=== PATIENT | female | born 1940 | race Caucasian/White ===

== ENCOUNTER → 2016-12-25 | Outpatient (REF) | payer MEDICARE | LOC: M LAB REF 13:09 | PROVIDERS: ATTEND Internal Medicine | DX: M05.79 Rheumatoid arthritis with rheumatoid factor of multiple sites without organ or systems involvement (principal) ==

== ENCOUNTER → 2017-02-26 | Outpatient (REF) | payer MEDICARE ==
[2017-03-03 08:19] LABS: TOTAL PROTEIN 7.5 GM/DL (6.4-8.2)
[2017-03-03 09:21] LABS: ALBUMIN 3.86 GM/DL (3.29-5.55); ALBUMIN % 51.4 % (55.8-66.1); GAMMA GLOBULIN % 17.9 % (11.1-18.8)
== END ==
LOC: M LAB REF 12:10
PROVIDERS: ATTEND Internal Medicine
DX: E83.52 Hypercalcemia (principal)

== ENCOUNTER → 2017-06-02 | Outpatient (REF) | payer MEDICARE | LOC: M LAB REF 09:12 | PROVIDERS: ATTEND Internal Medicine | DX: M05.79 Rheumatoid arthritis with rheumatoid factor of multiple sites without organ or systems involvement (principal) ==

== ENCOUNTER → 2017-09-15 | Outpatient (REF) | payer MEDICARE | LOC: M LAB REF 13:22 | PROVIDERS: ATTEND Internal Medicine | DX: Z51.81 Encounter for therapeutic drug level monitoring (principal); Z79.899 Other long term (current) drug therapy ==

== ENCOUNTER 2017-10-08 09:49 | Emergency (ER) | payer MEDICARE | END 2017-10-08 11:38 | disposition home or self-care (01) | LOC: M ED 09:49 | DX: M75.82 Other shoulder lesions, left shoulder (principal); E11.9 Type 2 diabetes mellitus without complications; I10 Essential (primary) hypertension; I25.2 Old myocardial infarction; R56.9 Unspecified convulsions; Z79.01 Long term (current) use of anticoagulants; Z79.82 Long term (current) use of aspirin; Z79.899 Other long term (current) drug therapy; Z88.8 Allergy status to other drugs, medicaments and biological substances; Z86.711 Personal history of pulmonary embolism; Z87.891 Personal history of nicotine dependence | CPT/HCPCS: 73030 ==

== ENCOUNTER → 2017-12-25 | Outpatient (CLI) | payer MEDICARE | LOC: M PLARAD 07:35 | DX: M47.22 Other spondylosis with radiculopathy, cervical region (principal) | CPT/HCPCS: 72141 ==

== ENCOUNTER → 2018-03-29 | Outpatient (REF) | payer MEDICARE ==
[2018-03-29 14:18] LABS: TOTAL PROTEIN,RANDOM URINE 11.8 MG/DL (0.0-12.0)
== END ==
LOC: M LAB REF 11:53
DX: E21.3 Hyperparathyroidism, unspecified (principal)
CPT/HCPCS: 83970

== ENCOUNTER → 2018-06-30 | Outpatient (CLI) | payer MEDICARE | LOC: M RAD 07:03 | DX: M70.61 Trochanteric bursitis, right hip (principal) | CPT/HCPCS: 73721 ==

== ENCOUNTER → 2018-09-21 | Outpatient (REF) | payer MEDICARE ==
[~2018-09-21] MED LIST: ACET30TAB PO; ANOR1AER IN; ASPI1TAB20 PO; ATEN25TA PO; CALCTAB97 PO; CORE25TA PO; ENBR1INJ SC; GLIM2TAB PO; HYDR100T PO; HYDR200T3 PO; ISOS30TA4 PO; K-TA10TA2 PO; LASI40TA PO; LEFL1TAB4 PO; LIPI20TA PO; MULT1TAB10 PO; NITR4TASL SL; OMEP40CA2 PO; PLAV1TAB2 PO; SITA50TAB PO; SPIR-10 PO; TRAM50TA2 PO; TYLE650T35 PO; VENTAER IN; VITA100067 PO; [UNRECOGNIZED DRUG - REMARK]
[2018-09-21 11:21] LABS: CREATININE FOR GFR 1.4 MG/DL (0.55-1.30); GLOMERULAR FILTRATION RATE 38.5 (>32)
== END ==
LOC: M LABDRAW1 10:24
PROVIDERS: ATTEND Physician Assistant
DX: M25.151 Fistula, right hip (principal)

== ENCOUNTER → 2018-12-30 | Outpatient (REF) | payer MEDICARE ==
[~2018-12-30] MED LIST changes: -LASI40TA PO; +LASI40TA9 PO
[2018-12-30 13:37] LABS: PTH INTACT 276.2 PG/ML (18.5-88.0)
[2018-12-31 12:38] LABS: C REACTIVE PROTEIN QUANTITATIV < 0.30 MG/DL (0.00-0.30)
== END ==
LOC: M LAB REF 12:05
PROVIDERS: ATTEND Internal Medicine
DX: E21.3 Hyperparathyroidism, unspecified (principal)

== ENCOUNTER → 2019-02-21 | Outpatient (REF) | payer MEDICARE ==
[~2019-02-21] MED LIST changes: +ACET-716 PO; -ACET30TAB PO
== END ==
LOC: M LAB REF 13:24
PROVIDERS: ATTEND Student in an Organized Health Care Education/Training Program
DX: E21.3 Hyperparathyroidism, unspecified (principal)

== ENCOUNTER → 2019-02-24 | Outpatient (CLI) | payer MEDICARE ==
[2019-02-24 09:49] LABS: CREATININE FOR GFR 1.11 MG/DL (0.55-1.30); GLOMERULAR FILTRATION RATE 50.2 (>32)
== END ==
LOC: M LAB 08:47
PROVIDERS: ATTEND Student in an Organized Health Care Education/Training Program
DX: Z01.818 Encounter for other preprocedural examination (principal)

== ENCOUNTER → 2019-06-17 | Outpatient (REF) | payer MEDICARE ==
[~2019-06-17] MED LIST changes: +ACET-683 PO; -ANOR1AER IN; +ANOR1AER INH; -ASPI1TAB20 PO; +ASPI325T57 PO; +ASPI81TA26 PO; +D31000CA4 PO; +HYDR10TAB PO; +OMEP-218 PO; +POTA20TA6 PO; +TUMS500C PO; +TUMS750C5 PO; -VENTAER IN; +VENTAER INH
== END ==
LOC: M LAB REF 12:25
PROVIDERS: ATTEND Internal Medicine
DX: E21.3 Hyperparathyroidism, unspecified (principal)

== ENCOUNTER 2019-06-24 14:37 | Inpatient (IN) | payer MEDICARE ==
[~2019-06-24] VITALS: Ht 157.5 cm; Wt 64.5 kg
[~2019-06-24 14:37] MED LIST changes: -ACET-683 PO; -ASPI81TA26 PO; -D31000CA4 PO; -HYDR10TAB PO; -OMEP-218 PO; -POTA20TA6 PO; -TUMS500C PO; -TUMS750C5 PO
[2019-06-24] MEDS ORDERED: ACET-683 PO (15:03)
[2019-06-24] MEDS ORDERED: TUMS500C PO (15:14)
[2019-06-24 15:56] LABS: BASO % 0.5 % (0.0-1.0); EOS # 0.1 10^3/uL (0.0-0.5); EOS % 0.8 % (0.0-3.0); HEMOGLOBIN 9.7 g/dl (12.0-15.5); LYMPH # 0.6 10^3/uL (1.5-5.0); LYMPH % 7.3 % (24.0-44.0); MEAN CORPUSCULAR HEMOGLOBIN 28.1 pg (27.0-33.0); MEAN CORPUSCULAR HGB CONC 33.4 g/dl (32.0-36.5); MEAN CORPUSCULAR VOLUME 84.1 fl (80.0-96.0); MONO % 11.7 % (0.0-5.0); NEUTROPHILS # 6.9 10^3/uL (1.5-8.5); NEUTROPHILS % 79.2 % (36.0-66.0); PLATELET COUNT, AUTOMATED 284 10^3/uL (150-450); RED BLOOD COUNT 3.45 10^6/uL (4.00-5.40); WHITE BLOOD COUNT 8.6 10^3/uL (4.0-10.0)
[2019-06-24 16:25] LABS: BLOOD UREA NITROGEN 23 MG/DL (7-18); CALCIUM LEVEL 6.5 MG/DL (8.8-10.2); CARBON DIOXIDE LEVEL 24 MEQ/L (21-32); CHLORIDE LEVEL 102 MEQ/L (98-107); CREATININE FOR GFR 1.36 MG/DL (0.55-1.30); GLOMERULAR FILTRATION RATE 39.7 (>32); GLUCOSE, FASTING 181 MG/DL (70-100); POTASSIUM SERUM 3.9 MEQ/L (3.5-5.1); SODIUM LEVEL 138 MEQ/L (136-145)
[2019-06-24] MEDS ORDERED: ISOVUE-370 76% 100ML VIAL (Q9967) As Ordered ONE (16:57)
[2019-06-24 17:01] LABS: CK-MB VALUE MASS < 1.0 NG/ML (<3.6); CPK CREATINE PHOSPHOKINASE 104 U/L (26-192); FREE T4 2.05 NG/DL (0.76-1.46); MAGNESIUM LEVEL 1.2 MG/DL (1.8-2.4); MB/CK RELATIVE INDEX 0.96 (< OR =4); NT-PRO BNP 3251 PG/ML (<450); PHOSPHORUS LEVEL 3.4 MG/DL (2.5-4.9); THYROID STIMULATING HORMONE 0.017 uIU/ML (0.358-3.740); TROPONIN I 0.05 NG/ML (< 0.10)
[2019-06-24] MEDS ORDERED: MAGNESIUM OXIDE 400 MG TAB (MAG-OX) PO ONE (17:30)
--- NOTE | 2019-06-24 17:50 | REPVR ---
PROCEDURE INFORMATION: Exam: US Duplex Bilateral Lower Extremity Veins Exam date and time: 06/24/2019 5:41 PM Clinical history: 79 years old, female; Abnormal findings; Abnormal lab test; Elevated d-dimer; Additional info: Bilat leg pain R/O dvt TECHNIQUE: Imaging protocol: Real-time duplex ultrasound of the Bilateral Lower Extremities with 2-D merino scale, color Doppler flow and spectral waveform analysis with image documentation. Complete exam focused on the bilateral lower extremity veins. COMPARISON: No relevant prior studies available. FINDINGS: Right deep veins: Unremarkable. The common femoral, femoral, proximal profunda femoral and popliteal veins are patent without thrombus. Normal Doppler waveforms. Normal compressibility and/or augmentation response. Right superficial veins: Saphenofemoral junction is patent without thrombus. Left deep veins: Unremarkable. The common femoral, femoral, proximal profunda femoral and popliteal veins are patent without thrombus. Normal Doppler waveforms. Normal compressibility and/or augmentation response. Left superficial veins: Saphenofemoral junction is patent without thrombus. Soft tissues: Unremarkable. IMPRESSION: No acute findings. No evidence of deep vein thrombosis. Electronically signed by: Shon Castillo On 06/24/2019 17:50:10 PM
[2019-06-24] MEDS ORDERED: CALCIUM GLUCONATE 1,000 MG in D5W MINI-BAG PLUS 100 ML IV ONE (18:00)
--- NOTE | 2019-06-24 18:05 | REPVR ---
PROCEDURE INFORMATION: Exam: CT Angiography Chest With Contrast Exam date and time: 06/24/2019 4:41 PM Clinical history: 79 years old, female; Shortness of breath; Additional info: SOB, fever TECHNIQUE: Imaging protocol: Computed tomographic angiography of the chest with intravenous contrast. 3D rendering: MIP reconstructed images were created and reviewed. Radiation optimization: All CT scans at this facility use at least one of these dose optimization techniques: automated exposure control; mA and/or kV adjustment per patient size (includes targeted exams where dose is matched to clinical indication); or iterative reconstruction. Contrast material: ISOVUE 370; Contrast volume: 75 ml; Contrast route: IV; COMPARISON: No relevant prior studies available. FINDINGS: Pulmonary arteries: There are no pulmonary emboli. Aorta: The aorta demonstrates moderate atherosclerotic calcification. There is no aortic dissection or aneurysm. Lungs: Increased interstitial markings in both upper lobes with subpleural and parenchymal cystic changes consistent with mild emphysematous changes associated with interstitial scarring. Calcified granuloma left upper lobe. Pleural space: Unremarkable. No pneumothorax. No pleural effusion. Heart: Unremarkable. No cardiomegaly. No pericardial effusion. Lymph nodes: Unremarkable. No enlarged lymph nodes. Bones/joints: The spine demonstrates mild degenerative changes. Soft tissues: Unremarkable. IMPRESSION: 1. Increased interstitial markings in both upper lobes with subpleural and parenchymal cystic changes consistent with mild emphysematous changes associated with interstitial scarring. 2. There is no aortic dissection or aneurysm. 3. There are no pulmonary emboli. Electronically signed by: Shon Castillo On 06/24/2019 18:05:12 PM
[2019-06-24] MEDS ORDERED: NS 500 ML IV ONE (19:00)
--- NOTE | 2019-06-24 19:13 | ECGEPIP ---
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
[2019-06-24] MEDS ORDERED: OMEP-218 PO (19:23)
[2019-06-24] MEDS ORDERED: POTA20TA6 PO (19:23)
[2019-06-24] MEDS ORDERED: TUMS750C5 PO (19:23)
[2019-06-24] MEDS ORDERED: ASPI81TA26 PO (19:23)
[2019-06-24] MEDS ORDERED: HYDR10TAB PO (19:23)
[2019-06-24] MEDS ORDERED: D31000CA4 PO (19:23)
[2019-06-24] MEDS ORDERED: ACETAMINOPHEN TAB 650MG DOSE (2X325MG) PO PRN (20:15)
[2019-06-24] MEDS ORDERED: NITROGLYCERIN 0.3 MG SUBL TAB SL PRN (20:15)
[2019-06-24] MEDS ORDERED: IPRATROPIUM 0.5MG/ALBUTEROL 2.5MG INH SOL UD 3ML (DUONEB)(J7620) NEB PRN (20:15)
[2019-06-24] MEDS ORDERED: traMADol 50 MG TAB PO PRN (20:15)
[2019-06-24] MEDS: CALCIUM CARB SUSP 1250MG/5ML UNIT DOSE CUP PO SCH (21:00)
[2019-06-24] MEDS ORDERED: MAALOX 30 ML SUSP *UDC PO PRN (21:00)
[2019-06-24] MEDS ORDERED: CARVedilol 12.5 MG TAB PO ONE (21:00)
[2019-06-24] MEDS: **hydrALAZINE** 10 MG TAB PO SCH (21:00)
[2019-06-24] MEDS: ATORVASTATIN 20 MG TAB PO SCH (21:00)
[2019-06-24] MEDS ORDERED: MOM 30ML SUSPENSION UDC PO PRN (21:00)
--- NOTE | 2019-06-24 21:00 | HPEPDOC ---
General Date of Admission Date of Service: Jun 24, 2019 Chief Complaint The patient is a 79-year-old female admitted with a reason for visit of Abnormal Labs. Source: Patient, Family Exam Limitations: No limitations Timing/Duration: Day(s) Severity: Moderate History of Present Illness Ms. Valverde is an 79 years old woman who had parathyroidectomy on Jun 15. She presents to Er with c/o generalized weakness, nausea, tremors, "feeling jittery and nervous", poor oral intake, and leg cramps for the past few days. She denies fever, chills, chest pain, SOB, diarrhea, constipation or dysuria. In ER, pt had normal mental status. She appeared anxious. Monitor showing sinus tachycardia of 120/min, BP and RR good; afebrile. Labs: Ca 6.5 (Albumin pending, previously normal), Mg 1.2, TSH 0.017, FT4 2.05. Hb 9.7 (no previous value to compare). Pt received a gram of IV calcium and oral magnesium in the ER. Home Medications Scheduled Aspirin (Aspirin EC) 81 Mg Tablet.dr, 81 MG PO DAILY, (Reported) Atorvastatin Calcium (Lipitor) 20 Mg Tab, 20 MG PO QHS, (Reported) Carvedilol (Coreg) 25 Mg Tab, 25 MG PO BID, (Reported) Cholecalciferol (Vitamin D3) (Vitamin D3) 1,000 Unit Capsule, 1,000 UNIT PO DAILY, (Reported) Clopidogrel Bisulfate (Plavix) 75 Mg Tab, 75 MG PO DAILY, (Reported) Etanercept (Enbrel) 25 Mg Inj, 25 MG SC 2XWK, (Reported) DUE FOR SECOND SHOT ON 06/27 Furosemide (Lasix) 40 Mg Tab, 40 MG PO BID, (Reported) Glimepiride (Glimepiride) 2 Mg Tab, 2 MG PO BID, (Reported) Hydralazine HCl (Hydralazine HCl) 10 Mg Tablet, 10 MG PO TID, (Reported) Isosorbide Mononitrate (Isosorbide Mononitrate ER) 30 Mg Tab, 30 MG PO DAILY, (Reported) Leflunomide (Leflunomide) 20 Mg Tab, 20 MG PO Q2D, (Reported) Nitroglycerin (Nitrostat) 0.4 Mg Subl, 0.4 MG SL NITRO, (Reported) Omeprazole (Omeprazole) 20 Mg Capsule.dr, 20 MG PO QHS, (Reported) Potassium Chloride (Potassium Chloride) 20 Meq Tab.er.prt, 20 MEQ PO DAILY, (Reported) Sitagliptin (Januvia) 50 Mg Tab, 50 MG PO DAILY, (Reported) Spironolactone (Spironolactone) 25 Mg Tab, 25 MG PO DAILY, (Reported) Umeclidinium Brm/Vilanterol Tr (Anoro Ellipta 62.5-25 Mcg INH) 1 Aer Aer, 1 PUFF INH DAILY, (Reported) Scheduled PRN Acetaminophen (Acetaminophen) 500 Mg Tablet, 1,000 MG PO Q6H PRN for PAIN, (Reported) Albuterol Sulfate (Ventolin Hfa) 108 Mcg/Act Aer, 1 PUFF INH Q4H PRN for WHEEZING, (Reported) Calcium Carbonate (Tums) 300 Mg Tab.chew, 300 MG PO BID PRN for HEARTBURN, (Reported) Tramadol HCl (Tramadol HCl) 50 Mg Tab, 50 MG PO BID PRN for PAIN, (Reported) Allergies Coded Allergies: No Known Allergies (Unverified , 06/24/19) Past Medical History Medical History CAD, s/p stents, NIDDM, CHF Surgical History Hysterectomy, cholecystectomy, parathyroidectomy Family History Significant Family History: No pertinent family hx Social History * Smoker: Denies Alcohol: Denies Drugs: denies A-FIB/CHADSVASC A-FIB History Current/History of A-Fib/PAF?: No Review of Systems Constitutional: Reports: Weakness, Fatigue, Lethargy; Denies: Chills, Fever Eyes: Denies: Pain, Vision change ENT: Denies: Head Aches, Ear Pain, Dysphagia Skin: Denies: Rash, Lesions Pulmonary: Denies: Dyspnea, Cough, Pleuritic Chest Pain Cardiovascular: Denies: Chest Pain, Edema Gastrointestinal: Reports: Nausea; Denies: Vomiting, Abdominal Pain, Diarrhea, Constipation Genitourinary: Denies: Dysuria, Frequency Hematologic: Denies: Bruising Endocrine: Denies: Polydipsia, Polyphagia Musculoskeletal: Reports: Leg Pain; Denies: Neck Pain, Back Pain Neurological: Reports: Weakness Psych: Reports: Mood Normal, Anxiety Physical Examination General Exam: Positive: Alert, Cooperative, No Acute Distress Eye Exam: Positive: PERRLA, Conjunctiva & lids normal ENT Exam: Positive: Atraumatic, Mucous membr. moist/pink Neck Exam: Positive: Supple; Negative: JVD Chest Exam: Positive: Clear to auscultation, Normal air movement Heart Exam: Positive: Tachycardic, Regular Rhythm Telemetry: Positive: Sinus, Tachycardia Abdomen Exam: Positive: Normal bowel sounds, Soft; Negative: Tenderness Extremity Exam: Positive: Normal pulses; Negative: Edema Skin Exam: Positive: Nl turgor and temperature; Negative: Rash Neuro Exam: Positive: Normal Speech, Strength at 5/5 X4 ext, Normal Tone, Other (tremors) Psych Exam: Positive: Mental status NL, Mood NL, Anxiety Vital Signs Vital Signs Date Time Temp Pulse Resp B/P (MAP) Pulse Ox O2 Delivery O2 Flow Rate FiO2 06/24/19 20:30 125 112/58 (76) 91 Room Air 06/24/19 19:54 98.6 06/24/19 14:38 26 Laboratory Data Labs 24H Laboratory Tests 2 06/24/19 15:34: Immature Granulocyte % (Auto) 0.5, White Blood Count 8.6, Red Blood Count 3.45L, Hemoglobin 9.7L, Hematocrit 29.0L, Mean Corpuscular Volume 84.1, Mean Corpuscular Hemoglobin 28.1, Mean Corpuscular Hemoglobin Concent 33.4, Red Cell Distribution Width 13.8, Platelet Count 284, Neutrophils (%) (Auto) 79.2H, Ly mphocytes (%) (Auto) 7.3L, Monocytes (%) (Auto) 11.7H, Eosinophils (%) (Auto) 0.8, Basophils (%) (Auto) 0.5, Neutrophils # (Auto) 6.9, Lymphocytes # (Auto) 0.6L, Monocytes # (Auto) 1.0H, Eosinophils # (Auto) 0.1, Basophils # (Auto) 0.0, Nucleated Red Blood Cells % (auto) 0.0, Anion Gap 12, Glomerular Filtration Rate 39.7, Blood Urea Nitrogen 23H, Creatinine 1.36H, Sodium Level 138, Potassium Level 3.9, Chloride Level 102, Carbon Dioxide Level 24, Calcium Level 6.5L, Phosphorus Level 3.4, Total Creatine Kinase 104, Magnesium Level 1.2L, Creatine Kinase MB < 1.0, Creatine Kinase MB Relative Index 0.96, Troponin I 0.05, ZF-Dud-U-Type Natriuretic Peptide 3251H, Thyroid Stimulating Hormone (TSH) 0.017L, Free Thyroxine 2.05H 06/24/19 17:14: Urine Color YELLOW, Urine Appearance HAZY, Urine pH 5.0, Urine Specific [place] 1.008, Urine Protein NEGATIVE, Urine Glucose (UA) NEGATIVE, Urine Ketones NEGATIVE, Urine Blood NEGATIVE, Urine Nitrite NEGATIVE, Urine Bilirubin NEGATIVE , Urine Urobilinogen 0.2, Urine Leukocyte Esterase NEGATIVE, Urine WBC (Auto) 1, Urine RBC (Auto) 2, Urine Hyaline Casts (Auto) 0, Urine Bacteria (Auto) NEGATIVE, Urine Squamous Epithelial Cells 1, Urine Mucus (Auto) SMALL, Urine Sperm (Auto) 06/24/19 20:16: CBC/BMP Laboratory Tests 06/24/19 15:34 Red Blood Count 3.45 L, Mean Corpuscular Volume 84.1, Mean Corpuscular Hemoglo bin 28.1, Mean Corpuscular Hemoglobin Concent 33.4, Red Cell Distribution Width 13.8, Neutrophils (%) (Auto) 79.2 H, Lymphocytes (%) (Auto) 7.3 L, Monocytes (%) (Auto) 11.7 H, Eosinophils (%) (Auto) 0.8, Basophils (%) (Auto) 0.5, Neutrophils # (Auto) 6.9, Lymphocytes # (Auto) 0.6 L, Monocytes # (Auto) 1.0 H, Eosinophils # (Auto) 0.1, Basophils # (Auto) 0.0, Calcium Level 6.5 L, Phosphorus Level 3.4, Total Creatine Kinase 104 Assessment/Plan Post-parathyroidectomy Complications: Hypocalcemia (symptomatic), Hypomagnesemia and Hyperthyroidism - Admit to inpatient - Supplement Calcium and magnesium; monitor levels - Pt likely to have excess thyroid hormone released during surgery; adjust betablocker dose to control tachycardia. I am not sure if pt will need thyroid suppression; may consider Endocrine consult. - Tele for tachycardia monitoring - Check PTH and Vit D3 level Continue home meds for other chronic illness Plan / VTE VTE Prophylaxis Ordered?: Yes VTE Exclusion Pharmacological: N/A:VTE Prophy Ordered Plan Diet: Continue Current Activity: Continue Current Therapy: PT, OT Diagnostics: Repeat Labs in AM Anticipated Discharge: Home With Services JOANNE CORADO MD Jun 24, 2019 21:00
[2019-06-24 21:06] LABS: PTH INTACT 100.8 PG/ML (18.5-88.0)
[2019-06-24 23:25] LABS: ALBUMIN 2.8 GM/DL (3.2-5.2)
[2019-06-25] MEDS ORDERED: GLUCAGON FOR INJ 1 MG VIAL (J1610) SC PRN (00:30)
[2019-06-25] MEDS ORDERED: DEXTROSE 50% 50 ML SYRINGE IV PRN (00:30)
[2019-06-25] MEDS ORDERED: GLUCOSE 4 GM CHEW TABLET PO PRN (00:30)
[2019-06-25] MEDS: HumaLOG INSULIN (NovoLOG) PER UNIT SC SCH ×5 (01:50→21:29)
[2019-06-25 07:15] LABS: HEMOGLOBIN 9.5 g/dl (12.0-15.5); MEAN CORPUSCULAR HEMOGLOBIN 29.1 pg (27.0-33.0); MEAN CORPUSCULAR HGB CONC 33.9 g/dl (32.0-36.5); MEAN CORPUSCULAR VOLUME 85.9 fl (80.0-96.0); PLATELET COUNT, AUTOMATED 267 10^3/uL (150-450); RED BLOOD COUNT 3.26 10^6/uL (4.00-5.40); WHITE BLOOD COUNT 7.7 10^3/uL (4.0-10.0)
[2019-06-25 07:48] LABS: ALBUMIN 2.6 GM/DL (3.2-5.2); BILIRUBIN,TOTAL 0.4 MG/DL (0.2-1.0); CALCIUM LEVEL 6.3 MG/DL (8.8-10.2); CREATININE FOR GFR 1.04 MG/DL (0.55-1.30); GLOMERULAR FILTRATION RATE 54.1 (>32); MAGNESIUM LEVEL 1.4 MG/DL (1.8-2.4); POTASSIUM SERUM 3.2 MEQ/L (3.5-5.1); TOTAL PROTEIN 6.4 GM/DL (6.4-8.2)
[2019-06-25] MEDS: MAG SULF 1GM/100ML (MAG RUN) 1 GM in APPROPRIATE DILUENT 1 EA IV SCH ×2 (08:09→09:00)
[2019-06-25] MEDS ORDERED: SPIRONOLACTONE 25 MG TAB PO SCH (09:00)
[2019-06-25] MEDS ORDERED: CALCIUM GLUCONATE 1,000 MG in D5W MINI-BAG PLUS 100 ML IV ONE (10:00)
[2019-06-25] MEDS: CLOPIDOGREL 75 MG TAB PO SCH (10:03)
[2019-06-25] MEDS: ENOXAPARIN 30 MG/0.3 ML SYR (J1650) SC SCH (10:03)
[2019-06-25] MEDS: MAGNESIUM OXIDE 400 MG TAB (MAG-OX) PO SCH ×2 (10:04→21:27)
[2019-06-25] MEDS: POTASSIUM CHLORIDE 10 MEQ SR TABLET PO SCH ×3 (10:05→11:00)
[2019-06-25] MEDS: CARVedilol 12.5 MG TAB PO SCH ×2 (10:15→21:28)
[2019-06-25] MEDS: FUROSEMIDE 40 MG TAB PO SCH (10:16)
[2019-06-25] MEDS: ISOSORBIDE MON. (IMDUR) 30 MG XR TAB PO SCH (10:16)
[2019-06-25] MEDS: **hydrALAZINE** 10 MG TAB PO SCH ×3 (10:16→21:27)
[2019-06-25] MEDS: VITAMIN D 1,000 INTERNATIONAL UNITS TABLET PO SCH (10:17)
[2019-06-25] MEDS: ASPIRIN 81 MG ENTERIC TAB PO SCH (10:38)
[2019-06-25 12:24] LABS: IONIZED CALCIUM 3.5 MG/DL (4.5-5.3)
[2019-06-25 12:36] LABS: POTASSIUM SERUM 3.6 MEQ/L (3.5-5.1)
[2019-06-25] MEDS: CALCIUM CARB SUSP 1250MG/5ML UNIT DOSE CUP PO SCH ×3 (12:43→21:28)
[2019-06-25] MEDS ORDERED: POTASSIUM CHLORIDE 10 MEQ SR TABLET PO ONE (12:45)
[2019-06-25] MEDS ORDERED: MAG SULF 1GM/100ML (MAG RUN) 1 GM in APPROPRIATE DILUENT 1 EA IV ONE (12:45)
[2019-06-25 14:05] VITALS: BP 128/68
[2019-06-25] MEDS: CALCIUM GLUCONATE 1,000 MG in D5W MINI-BAG PLUS 100 ML IV SCH ×2 (14:44→17:40)
[2019-06-25 16:00] VITALS: BP 119/59
[2019-06-25] MEDS ORDERED: LOMOTIL 2.5MG/0.025MG TABLET PO ONE (18:00)
[2019-06-25 18:04] LABS: IONIZED CALCIUM 3.7 MG/DL (4.5-5.3)
[2019-06-25 18:27] LABS: MAGNESIUM LEVEL 2.5 MG/DL (1.8-2.4); POTASSIUM SERUM 4.9 MEQ/L (3.5-5.1)
[2019-06-25 20:00] VITALS: BP 136/71
[2019-06-25] MEDS: ATORVASTATIN 20 MG TAB PO SCH (21:27)
--- NOTE | 2019-06-25 22:26 | IPN ---
DATE: 06/25/2019 SUBJECTIVE: Patient complains of generalized weakness, abdominal pain, and diarrhea, muscles spasms at times. No nausea or vomiting. Some dizziness but no lightheadedness when she tries to get up, slightly better after fluid hydration. OBJECTIVE: PHYSICAL EXAMINATION: VITAL SIGNS: Temperature 97.7, pulse 91, respiratory rate 18, blood pressure 118/59, 97% on 2 liters nasal cannula. GENERAL: Patient appears her stated age. She is in no respiratory distress. No cyanosis. No clubbing. She appears ill with a well-healed suture across the neck from prior thyroidectomy. LUNGS: Diminished but clear to auscultation. No wheezes, rales, or rhonchi. HEART: S1, S2, sinus rhythm. ABDOMEN: Soft, nontender, nondistended. Positive bowel sounds. No rebound, guarding. No hepatosplenomegaly or abdominal bruits. EXTREMITIES: No cyanosis, clubbing, or any pitting edema. CURRENT MEDICATIONS: Lovenox, aspirin, Coreg, vitamin D, Plavix, Lasix, isosorbide, potassium, spironolactone, magnesium oxide, Lispro, insulin sliding scale, hypoglycemic protocol, milk of magnesia, Mylanta, Lipitor, Apresoline, calcium, Tylenol, albuterol, nitroglycerine, and tramadol. ASSESSMENT AND PLAN: This is an 79-year-old female with a history of recent parathyroidectomy who on June 15 presented to the emergency room (ER) with weakness, nausea, tremors, poor appetite, cramping. Was found to be tachycardic. Was hypoglycemic, calcium of 6.5, magnesium of 1.2. CURRENT ISSUES: 1. Electrolytes abnormalities with symptomatic hypocalcemia, hypomagnesemia, and post parathyroidectomy. Patient is admitted to telemetry unit to rule out arrhythmia. She is currently aggressively supplemented with intravenous (IV) calcium gluconate, potassium, and intravenous magnesium until levels are optimized. 2. Acute kidney injury, resolved. Responded to IV fluid hydration. 3. Hyperthyroidism. T4 and TSH have been reviewed. Will discuss with her digital director if patient requires treatment. She currently complains of some diarrhea but currently on a bowel regimen, which will be held. Requesting Lomotil. 4. Hypertension. Resumed on home dose of Apresoline, isosorbide, spironolactone, Lasix, Coreg. 5. History of coronary artery disease (CAD) and stents, on aspirin and Plavix, Coreg, isosorbide. 6. Type 2 diabetes, on insulin sliding scale. MTDD
[2019-06-25 23:59] VITALS: BP 140/58
[2019-06-26 00:07] LABS: IONIZED CALCIUM 3.9 MG/DL (4.5-5.3)
[2019-06-26 00:49] LABS: MAGNESIUM LEVEL 2.5 MG/DL (1.8-2.4); POTASSIUM SERUM 4.7 MEQ/L (3.5-5.1)
[2019-06-26 04:00] VITALS: BP 131/68
[2019-06-26 06:35] LABS: MAGNESIUM LEVEL 2.6 MG/DL (1.8-2.4)
[2019-06-26 06:40] LABS: BLOOD UREA NITROGEN 14 MG/DL (7-18); CALCIUM LEVEL 7.3 MG/DL (8.8-10.2); CARBON DIOXIDE LEVEL 23 MEQ/L (21-32); CHLORIDE LEVEL 109 MEQ/L (98-107); CREATININE FOR GFR 0.95 MG/DL (0.55-1.30); GLOMERULAR FILTRATION RATE > 60.0 (>32); GLUCOSE, FASTING 86 MG/DL (70-100); SODIUM LEVEL 139 MEQ/L (136-145)
[2019-06-26 08:00] VITALS: BP 114/64
[2019-06-26] MEDS: POTASSIUM CHLORIDE 10 MEQ SR TABLET PO SCH (08:29)
[2019-06-26] MEDS: CARVedilol 12.5 MG TAB PO SCH ×2 (08:30→21:34)
[2019-06-26] MEDS: VITAMIN D 1,000 INTERNATIONAL UNITS TABLET PO SCH (08:30)
[2019-06-26] MEDS: FUROSEMIDE 40 MG TAB PO SCH (08:30)
[2019-06-26] MEDS: **hydrALAZINE** 10 MG TAB PO SCH ×3 (08:30→21:33)
[2019-06-26] MEDS: ASPIRIN 81 MG ENTERIC TAB PO SCH (08:30)
[2019-06-26] MEDS: ENOXAPARIN 30 MG/0.3 ML SYR (J1650) SC SCH (08:31)
[2019-06-26] MEDS: CLOPIDOGREL 75 MG TAB PO SCH (08:31)
[2019-06-26] MEDS: ISOSORBIDE MON. (IMDUR) 30 MG XR TAB PO SCH (08:31)
[2019-06-26] MEDS: CALCIUM CARB SUSP 1250MG/5ML UNIT DOSE CUP PO SCH ×3 (08:31→21:50)
[2019-06-26] MEDS: HumaLOG INSULIN (NovoLOG) PER UNIT SC SCH ×4 (08:32→21:00)
[2019-06-26] MEDS: CALCIUM GLUCONATE 1,000 MG in D5W MINI-BAG PLUS 100 ML IV SCH ×5 (10:33→19:59)
[2019-06-26] MEDS: LOMOTIL 2.5MG/0.025MG TABLET PO PRN ×2 (11:59→21:50)
[2019-06-26 12:00] VITALS: BP 126/64
[2019-06-26 12:06] LABS: IONIZED CALCIUM 4.3 MG/DL (4.5-5.3)
[2019-06-26 12:25] LABS: MAGNESIUM LEVEL 2.4 MG/DL (1.8-2.4); POTASSIUM SERUM 4.8 MEQ/L (3.5-5.1)
[2019-06-26 16:00] VITALS: BP 134/65
--- NOTE | 2019-06-26 16:54 | IPNPDOC ---
Date Seen The patient was seen on 06/26/19. Progress Note SUBJECTIVE: diarrhea resolved. gi panel negative. "I feel much better today." still c/o generalized weakness and poor appetite. "I want to get up and start walking." anxious to go home. OBJECTIVE: PHYSICAL EXAMINATION: VITAL SIGNS:reviewed, pls see below GENERAL: conversant no distress. no accessory respiratory muscle use. no pallor, no icterus or jaundice. well-healed suture across the neck from prior thyroidectomy. LUNGS: Diminished but clear to auscultation. No wheezes, rales, or rhonchi. HEART: S1, S2, sinus rhythm. ABDOMEN: Soft, nontender, nondistended. Positive bowel sounds. No rebound, guarding. No hepatosplenomegaly or abdominal bruits. EXTREMITIES: No cyanosis, clubbing, or any pitting edema. CURRENT MEDICATIONS: Lovenox, aspirin, Coreg, vitamin D, Plavix, Lasix, isosorbide, potassium, spironolactone, magnesium oxide, Lispro, insulin sliding scale, hypoglycemic protocol, milk of magnesia, Mylanta, Lipitor, Apresoline, calcium, Tylenol, albuterol, nitroglycerine, and tramadol. LABORATORY DATA, MICROBIOLOGY, IMAGING STUDIES: REVIEWED, PLS SEE BELOW ASSESSMENT AND PLAN: This is an 79-year-old female with a history of recent parathyroidectomy who on June 15 presented to the emergency room (ER) with weakness, nausea, tremors, poor appetite, cramping. Was found to be tachycardic. Was hypoglycemic, calcium of 6.5, magnesium of 1.2. CURRENT ISSUES: 1. Electrolytes abnormalities with symptomatic hypocalcemia post parathyroidectomy. negative telemetry overnight. intravenous (IV) calcium gluconate and po calcium until normal ionized calcium. 2. Acute kidney injury, resolved. Responded to IV fluid hydration. 3. Hyperthyroidism. T4 and TSH have been reviewed. 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 4. Hypertension. Resumed on home dose of Apresoline, isosorbide, spironolactone, Lasix, Coreg. 5. History of coronary artery disease (CAD) and stents, on aspirin and Plavix, Coreg, isosorbide. 6. Type 2 diabetes, on insulin sliding scale. 7. Diarrhea, resolved. negative GI panel. disposition: 1-2 days. await PT clearance and normal ionized calcium levels. VS, I&O, 24H, Fishbone Vital Signs/I&O Vital Signs Date Time Temp Pulse Resp B/P (MAP) Pulse Ox O2 Delivery O2 Flow Rate FiO2 06/26/19 04:00 2.0 06/26/19 04:00 97.2 111 20 131/68 (89) 99 06/25/19 13:42 Nasal Cannula I&O- Last 24 Hours up to 6 AM 06/26/19 06:00 Intake Total 740 ml Output Total 400 ml Balance 340 ml Laboratory Data 24H LABS Laboratory Tests 2 06/25/19 10:22: Bedside Glucose (Misc Panel) 257H 06/25/19 12:02: Whole Blood Ionized Calcium 3.5*L, Magnesium Level 2.0 06/25/19 13:32: Bedside Glucose (Misc Panel) 172H 06/25/19 16:31: Bedside Glucose (Misc Panel) 146H 06/25/19 17:54: Whole Blood Ionized Calcium 3.7L, Magnesium Level 2.5H 06/25/19 20:27: Bedside Glucose (Misc Panel) 263H 06/26/19 00:00: Whole Blood Ionized Calcium 3.9L, Magnesium Level 2.5H 06/26/19 05:50: Whole Blood Ionized Calcium 4.0L, Magnesium Level 2.6H, Anion Gap 7L, Glomerular Filtration Rate > 60.0, Blood Urea Nitrogen 14, Creatinine 0.95, Sodium Level 139, Potassium Level 5.0, Chloride Level 109H, Carbon Dioxide Level 23, Calcium Level 7.3#L 06/26/19 07:29: Bedside Glucose (Misc Panel) 104 CBC/BMP Laboratory Tests 06/25/19 12:02 06/25/19 17:54 06/26/19 00:00 06/26/19 05:50 Calcium Level 7.3 #L Microbiology Microbiology 06/25/19 Gastrointestinal Tract Panel (PCR) - Final, Complete NAZ MARX MD Jun 26, 2019 08:24
[2019-06-26 18:07] LABS: IONIZED CALCIUM 4.4 MG/DL (4.5-5.3)
[2019-06-26 18:22] LABS: MAGNESIUM LEVEL 2.3 MG/DL (1.8-2.4); POTASSIUM SERUM 4.6 MEQ/L (3.5-5.1)
[2019-06-26 20:00] VITALS: BP 137/60
[2019-06-26] MEDS: ATORVASTATIN 20 MG TAB PO SCH (21:33)
[2019-06-26 23:59] VITALS: BP 122/60
[2019-06-27 00:02] LABS: IONIZED CALCIUM 4.5 MG/DL (4.5-5.3)
[2019-06-27 00:37] LABS: MAGNESIUM LEVEL 2.1 MG/DL (1.8-2.4); POTASSIUM SERUM 4.7 MEQ/L (3.5-5.1)
[2019-06-27 04:00] VITALS: BP 122/64
[2019-06-27 05:39] LABS: IONIZED CALCIUM 4.3 MG/DL (4.5-5.3)
[2019-06-27 05:54] LABS: CALCIUM LEVEL 8.4 MG/DL (8.8-10.2); GLOMERULAR FILTRATION RATE 56.6 (>32); MAGNESIUM LEVEL 2.1 MG/DL (1.8-2.4); POTASSIUM SERUM 4.3 MEQ/L (3.5-5.1)
[2019-06-27] MEDS: HumaLOG INSULIN (NovoLOG) PER UNIT SC SCH ×4 (07:30→21:00)
[2019-06-27 08:00] VITALS: BP 135/62
[2019-06-27] MEDS: ASPIRIN 81 MG ENTERIC TAB PO SCH (09:40)
[2019-06-27] MEDS: FUROSEMIDE 40 MG TAB PO SCH (09:40)
[2019-06-27] MEDS: ENOXAPARIN 30 MG/0.3 ML SYR (J1650) SC SCH (09:40)
[2019-06-27] MEDS: POTASSIUM CHLORIDE 10 MEQ SR TABLET PO SCH (09:40)
[2019-06-27] MEDS: CLOPIDOGREL 75 MG TAB PO SCH (09:40)
[2019-06-27] MEDS: ISOSORBIDE MON. (IMDUR) 30 MG XR TAB PO SCH (09:40)
[2019-06-27] MEDS: **hydrALAZINE** 10 MG TAB PO SCH ×3 (09:41→21:39)
[2019-06-27] MEDS: CARVedilol 12.5 MG TAB PO SCH ×2 (09:41→21:39)
[2019-06-27] MEDS: VITAMIN D 1,000 INTERNATIONAL UNITS TABLET PO SCH (09:41)
[2019-06-27] MEDS ORDERED: APIXABAN 2.5 MG TAB (ELIQUIS) PO ONE (10:30)
[2019-06-27] MEDS: CALCIUM CARB SUSP 1250MG/5ML UNIT DOSE CUP PO SCH ×3 (10:35→21:38)
[2019-06-27] MEDS ORDERED: OMEPRAZOLE 20 MG CAP PO ONE (11:00)
[2019-06-27 11:16] LABS: PERCENT SATURATION 11.2 % (13.2-45.0)
[2019-06-27 12:00] VITALS: BP 141/65
[2019-06-27 12:01] LABS: IONIZED CALCIUM 4.2 MG/DL (4.5-5.3)
[2019-06-27 12:26] LABS: MAGNESIUM LEVEL 2.2 MG/DL (1.8-2.4); POTASSIUM SERUM 4.2 MEQ/L (3.5-5.1)
[2019-06-27 16:00] VITALS: BP 123/58
[2019-06-27 18:08] LABS: IONIZED CALCIUM 4.1 MG/DL (4.5-5.3)
[2019-06-27 18:29] LABS: POTASSIUM SERUM 4.5 MEQ/L (3.5-5.1)
[2019-06-27 20:00] VITALS: BP 135/80
[2019-06-27] MEDS: ATORVASTATIN 20 MG TAB PO SCH (21:39)
[2019-06-27] MEDS: APIXABAN 2.5 MG TAB (ELIQUIS) PO SCH (21:39)
--- NOTE | 2019-06-27 22:16 | IPNPDOC ---
Date Seen The patient was seen on 06/27/19. Progress Note SUBJECTIVE: tele: overnight at 1700, pt was found to be in aflutter new onset. on propranolol . no c/o dizziness, lightheadednss, palpitaitons, fever, cough, sob OBJECTIVE: PHYSICAL EXAMINATION: VITAL SIGNS:reviewed, pls see below GENERAL: conversant no distress. no accessory respiratory muscle use. no pallor, no icterus or jaundice. well-healed suture across the neck from prior thyroidectomy. LUNGS: Diminished but clear to auscultation. No wheezes, rales, or rhonchi. HEART: S1, S2, irregularly irregular rhythm. ABDOMEN: Soft, nontender, nondistended. Positive bowel sounds. No rebound, guarding. No hepatosplenomegaly or abdominal bruits. EXTREMITIES: No cyanosis, clubbing, or any pitting edema. LABORATORY DATA, MICROBIOLOGY, IMAGING STUDIES: REVIEWED, PLS SEE BELOW ASSESSMENT AND PLAN: This is an 79-year-old female with a history of recent parathyroidectomy who on June 15 presented to the emergency room (ER) with weakness, nausea, tremors, poor appetite, cramping. Was found to be tachycardic. Was hypoglycemic, calcium of 6.5, magnesium of 1.2. Atrial flutter, new onset on propranolol, low dose eliquis. 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 negative telemetry overnight. intravenous (IV) calcium gluconate and po calcium until normal ionized calcium. Acute kidney injury, resolved. Responded to IV fluid hydration. Hyperthyroidism. T4 and TSH have been reviewed. Hypertension. Resumed on home meds History of coronary artery disease (CAD) and stents, on aspirin and Plavix, beta jair. isosorbide. Type 2 diabetes, on insulin sliding scale. Diarrhea, resolved. negative GI panel. VS, I&O, 24H, Fishbone Vital Signs/I&O Vital Signs Date Time Temp Pulse Resp B/P (MAP) Pulse Ox O2 Delivery O2 Flow Rate FiO2 06/27/19 21:39 116 135/80 06/27/19 20:00 97.9 18 94 2.0 06/25/19 13:42 Nasal Cannula I&O- Last 24 Hours up to 6 AM 06/27/19 06:00 Intake Total 780 ml Output Total 920 ml Balance -140 ml Laboratory Data 24H LABS Laboratory Tests 2 06/26/19 23:51: Whole Blood Ionized Calcium 4.5, Magnesium Level 2.1 06/27/19 05:06: Reticulocyte # (auto) 32.4, Differential Slide Review Report, Peripheral Blood Smear Path Consult PERIPHERAL SMEAR, Percent Reticulocyte Count 1.1, Reticulocyte Hemoglobin Equivalent 27.6 06/27/19 05:07: Whole Blood Ionized Calcium 4.3L, Magnesium Level 2.1, Anion Gap 9, Glomerular Filtration Rate 56.6, Blood Urea Nitrogen 19H, Creatinine 1.00, Sodium Level 139, Potassium Level 4.3, Chloride Level 106, Carbon Dioxide Level 24, Calcium Level 8.4#L, Iron Level 23L, Total Iron Binding Capacity 205L, Transferrin % Saturation 11.2L 06/27/19 11:49: Whole Blood Ionized Calcium 4.2L, Magnesium Level 2.2 06/27/19 12:07: Bedside Glucose (Misc Panel) 179H 06/27/19 17:04: Bedside Glucose (Misc Panel) 150H 06/27/19 18:01: Whole Blood Ionized Calcium 4.1L, Magnesium Level 2.0 06/27/19 21:31: Bedside Glucose (Misc Panel) 145H CBC/BMP Laboratory Tests 06/26/19 23:51 06/27/19 05:07 Calcium Level 8.4 #L 06/27/19 11:49 06/27/19 18:01 Microbiology Microbiology 06/27/19 Stool Occult Blood (DANIELLA) - Final, Complete 06/25/19 Gastrointestinal Tract Panel (PCR) - Final, Complete NAZ MARX MD Jun 27, 2019 22:16
--- NOTE | 2019-06-27 22:48 | CR ---
DATE OF CONSULTATION: 06/27/2019 CARDIOLOGY CONSULTATION REFERRING PHYSICIAN: Dr. Judith Carrillo INDICATION: Paroxysmal atrial fibrillation. HISTORY OF PRESENT ILLNESS: This 79-year-old mother of four grown children, resident of [place], [place], is well known to our cardiology practice with ischemic, hypertensive, and valvular heart disease complicated by abnormal EKG, first-degree atrioventricular (AV) block, and congestive heart failure (diastolic). She also has pulmonary fibrosis requiring nocturnal supplemental oxygen (O2). Last seen in my office June 10, 2019; she reported feeling fairly stable with dyspnea on exertion as before but no orthopnea. Denied any chest pain, palpitations, dizziness or symptoms to suggest embolic phenomenon. She was tolerating her medications well. Heart rate was 80 beats per minute and regular, blood pressure sitting 126/70, respiratory rate 16 per minute with weight 144 pounds. She was believed to be compensated with EKG showing sinus rhythm at 79 beats per minute, frequent isolated premature ventricular contractions (PVCs) with first-degree AV block and nonspecific ST/T-wave abnormalities that were not changed from December of 2018. 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 She had been discharged with encouragement to take calcium replacement twice a day (b.i.d.). For the first 24 hours, she claims to have felt quite well but from that point on became increasingly fatigued. Had been having diarrhea, yet was continuing to use her Lasix 40 mg twice a day. Came to the emergency room June 24, 2019 with tremors and feeling jittery and nervous with leg cramps. EKG showed sinus tachycardia 120 beats per minute. Serum calcium 6.5, magnesium 1.2 with ultrasensitive TSH 0.017 and free T4 elevated at 2.05. Supplemental IV calcium and magnesium were administered. She was continued on her Lasix 40 mg daily with potassium supplement. Following potassium replacement, June 25, her potassium normalized and her calcium has normalized after 3 days of oral replacement and intermittent IV calcium replacement therapy. On the monitor last evening, she developed a bout of atrial fibrillation with reasonably controlled ventricular response on her chronic beta-jair therapy, carvedilol 25 mg twice a day. Consultation was placed with our service. OTHER PAST CARDIAC DISEASE/EVENTS/TESTS: July 1997 underwent cardiac catheterization for unstable angina with left ventricular ejection fraction (LVEF) of 62%, elevated left ventricle end-diastolic pressure of 22 mmHg and high-grade ostial left anterior descending (LAD) stenosis was successfully stented. Last cardiac catheterization January 2008 showed apical left ventricular (LV) hypokinesis, LVEF 45% with critical ostial circumflex stenosis successfully treated with a stent and there was only a mild intrastent restenosis of the LAD stent. January 04, 2018 underwent pharmacological stress heart scan showing no inducible chest pain, baseline EKG repolarization abnormalities were slightly more prominent but left ventricular wall motion was normal with breast tissue attenuation artifact but no reversible perfusion defect. September 02, 2018 echocardiogram showed mild concentric left ventricular hypertrophy with hyperkinetic wall motion, mildly dilated left atrium with impairment of LV diastolic function but currently normal estimated left atrial pressure, normal right heart chamber sizes and motion with at least mild pulmonary hypertension, normal inferior vena cava (IVC) size and collapse, moderate aortic valvular sclerosis with very mild insufficiency and moderate mitral annular calcification with mild insufficiency. CORONARY RISK FACTORS: Advanced age, remote heavy smoker, hypertension, hypercholesterolemia and diabetes mellitus. OTHER PAST MEDICAL HISTORY: Four deliveries. Total hysterectomy 1985. Cholecystectomy 1984. Bilateral cataract extractions 2011. Rheumatoid arthritis - on biological treatment. Chronic obstructive pulmonary disease (COPD) with prior pulmonary embolism. Pulmonary fibrosis. Gastroesophageal reflux - on chronic omeprazole therapy. REVIEW OF SYSTEMS: Please see history of present illness. Denies fever but has had a weight loss with diarrhea (not melena) and ongoing Lasix therapy used before coming to the hospital. Visual disturbance, wears trifocal lenses. Chronic shortness of breath with effort. Loose bowel movements as mentioned. History of arthralgia and arthritis affecting her back and hands due to rheumatoid arthritis. History of some balance problems. Denies any abnormal bleeding. All other systems review is negative. MEDICATIONS: At this point, she is receiving carvedilol 25 mg twice a day, Plavix 75 mg daily, aspirin 81 mg daily, Eliquis 2.5 mg by mouth twice a day, omeprazole 20 mg daily, Lomotil one tablet three times a day for her diarrhea, calcium carbonate 1.25 grams by mouth three times a day, vitamin D 1000 units daily, Lasix 40 mg daily, KCl 20 mEq daily, isosorbide mononitrate 30 mg by mouth daily, hydralazine 10 mg three times a day, atorvastatin 20 mg nightly, insulin Humalog according to sliding scale, nitroglycerin 0.3 mg sublingual (SL) every 5 minutes as needed for chest pain. Tylenol and tramadol for pain and albuterol/Atrovent (DuoNeb) every 4 hours as needed for shortness of breath. ALLERGIES: None known. PHYSICAL EXAMINATION: Constitutional: Pleasant elderly woman lay comfortably with the head of the bed elevated at 30 degrees. Appears of medium body build. No obvious pallor despite her documented anemia. Heart rate 96 beats per minute and regular with occasional irregularity, blood pressure 140/66 lying with legs elevated on the bed, respiratory rate 18 per minute, oxygen saturation 94% on supplemental oxygen by nasal prongs at 2 liters. Afebrile. Current weight 137 pounds (down 7 pounds from June 10.). Eyes: No obvious pallor or icterus. No xanthelasma of her lids. ENT/mouth: Upper and lower dentures. Normal oral moisture. No central cyanosis. Neck: Trachea midline. Well-healing parathyroidectomy scar lower neck. Neck veins were 1-2 cm above the sternal angle. Respiratory: Fairly normal chest configuration and chest expansion with few inspiratory rales both bases. No current audible wheezes. Cardiovascular: Apical impulse at the midclavicular line fifth intercostal space. Heart sounds somewhat diminished. No audible gallop or murmur. Normal carotid upstrokes and volume with no bruits. Upper extremity pulses were symmetrical and normal. Femoral pulses and pedal pulses were also normal. Abdominal aorta not palpable. No bruits. Extremities: No current dependent edema. No clubbing, peripheral cyanosis or splinter hemorrhages. GI: Soft, nontender abdomen. Musculoskeletal: Gait was not assessed at this time. No obvious rheumatic deformities. No evidence of osteoarthritis at this time. Neuro/psych: Bright, alert and oriented. Gave a lucid history. Eye, facial, and extremity movements were symmetrical and normal. INVESTIGATIONS: A chest CT angiogram was performed at the time of her admission and was reviewed independently. Vessel Welder film showed heart size upper limits of normal with slightly unfolded thoracic aorta and slightly prominent pulmonary arteries. Slightly raised right hemidiaphragm with no localized infiltrate or pleural effusion. Some atherosclerotic changes of the thoracic aorta and the coronary arteries. Aortic root measured 3.1 cm, normal. Pulmonary trunk measured 2.7 cm, upper limits of normal to slightly dilated. Left atrium was mildly dilated with normal left ventricle, right heart chamber sizes appeared to be normal as did her inferior vena cava. There was no pericardial effusion. There was enhanced interstitial markings both upper lobes with emphysematous changes and scarring. No evidence of pulmonary embolism, pleural effusion or lymphadenopathy. Degenerative changes of her thoracic spine. EKG: Study performed at the time of her admission showed sinus tachycardia at 106 beats per minute. Left atrial conduction disturbance with first-degree AV block. Diffuse ST/T-wave abnormalities anterolaterally, more marked from our last EKG June 10, 2019. Blood work: Last hemoglobin June 25, 2019 measured 9.5, which is essentially stable from her admission. Normal white blood cell count and platelet count. Electrolytes earlier today showed electrolyte balance with potassium 4.3, calcium 8.4, magnesium 2.1 with BUN 19 and creatinine 1.0. Fasting glucose this morning 90. Iron stores showed a reduced serum iron and iron-binding capacity with low transferrin percentage. Liver function studies on her admission showed a decreased serum albumin of 2.6. Other liver function studies were normal. Interestingly, her pro-BNP level was elevated at 3251. C-reactive protein was elevated at 14.2. Parathyroid hormone intact was elevated at 100.8. TSH and free T4 as mentioned above. Urinalysis was negative. IMPRESSION/PLAN: 1. Paroxysmal atrial fibrillation: Her fast heart rate and bout of atrial fibrillation are likely manifestations of her postoperative thyroiditis attributed to manipulation of the thyroid gland at the time of parathyroidectomy. Unfortunately this is a fairly common complication occurring at least 30% of the time, but is fairly transient and managed by beta jair therapy. Usually resolving within 40 days. She Has underlying hypertensive heart disease with at least a mildly dilated left atrium, predisposing her to atrial tachyarrhythmia She continues on carvedilol 25 mg twice a day, and I have written an order for additional propranolol 10 mg by mouth every 6 hours to hold for heart rate less than 90 (propranolol is a drug of choice for hyperthyroidism and is usually only necessary briefly). With her history of hypertensive heart disease and this atrial tachyarrhythmia, we have recommended the introduction of at least age-adjusted Eliquis at 2.5 mg twice a day along with low dose aspirin. Her Plavix will be discontinued. She is currently being worked up for postoperative anemia, but has had no obvious bleeding problems. 2. Hypokalemia/hypomagnesemia: Believed to be related to the combination of gastrointestinal (GI) loss with her diarrhea and ongoing Lasix therapy. This may well have been contributing to her hypocalcemia as well. With replacement therapy, electrolytes are currently normal. She is on a good dose of calcium replacement with vitamin D. With her history of GI fluid loss, I have at least temporarily withheld her Lasix and potassium chloride. Followup chemistry has been requested. 3. First-degree AV block: Interestingly, she still manifests a fairly rapid heart rate without evidence of high-grade AV block on her current beta jair therapies. Would continue on telemetry for the next 24-48 hours. 4. Heart failure (diastolic/acute on chronic): Has no symptoms or signs of congestion and in fact was believed to be at least slightly volume depleted on admission, having lost 7 pounds since her office visit. Should remain on a modest salt and fluid intake restriction, but we have at least temporarily withheld her Lasix and potassium. She continues on her carvedilol. 5. Hypertensive heart disease (benign with heart failure): Slight systolic hypertension likely a reflection of hyperthyroidism as well, and I anticipate this will respond to the addition of low dose propranolol. Remains on combination carvedilol 25 mg twice a day, hydralazine 10 mg three times a day and isosorbide mononitrate 30 mg daily. We will continue to monitor her blood pressure with you. 6. Coronary artery disease ([place] vessel)/status post LAD and circumflex coronary stenting: Gratifyingly, despite her hyperthyroidism and rapid rates, she has been free of symptomatic myocardial ischemia. Followup EKG and troponin I level will be obtained in the morning. Remains on protective combination carvedilol, Imdur, low dose aspirin and age-adjusted oral anticoagulant. We will plan on following her closely with you and appreciate the opportunity to participate in her care. DILLAN
[2019-06-28] VITALS: BP 116/57
[2019-06-28 04:00] VITALS: BP 135/63
[2019-06-28 05:58] LABS: ALBUMIN 2.6 GM/DL (3.2-5.2); CREATININE FOR GFR 0.97 MG/DL (0.55-1.30); GLOMERULAR FILTRATION RATE 58.7 (>32); PHOSPHORUS LEVEL 3.4 MG/DL (2.5-4.9); POTASSIUM SERUM 4.1 MEQ/L (3.5-5.1)
[2019-06-28] MEDS: PROPRANOLOL 10 MG TAB PO SCH ×5 (06:00→23:37)
[2019-06-28 08:00] VITALS: BP 134/63
[2019-06-28] MEDS: HumaLOG INSULIN (NovoLOG) PER UNIT SC SCH ×4 (08:45→21:00)
[2019-06-28] MEDS: CALCIUM CARB SUSP 1250MG/5ML UNIT DOSE CUP PO SCH ×3 (08:45→21:52)
[2019-06-28] MEDS: OMEPRAZOLE 20 MG CAP PO SCH (08:46)
[2019-06-28] MEDS: APIXABAN 2.5 MG TAB (ELIQUIS) PO SCH ×2 (08:46→21:59)
[2019-06-28] MEDS: **hydrALAZINE** 10 MG TAB PO SCH ×3 (08:46→21:54)
[2019-06-28] MEDS: CARVedilol 12.5 MG TAB PO SCH ×2 (08:47→21:53)
[2019-06-28] MEDS: ASPIRIN 81 MG ENTERIC TAB PO SCH (08:47)
[2019-06-28] MEDS: ISOSORBIDE MON. (IMDUR) 30 MG XR TAB PO SCH (08:47)
[2019-06-28] MEDS: VITAMIN D 1,000 INTERNATIONAL UNITS TABLET PO SCH (08:47)
[2019-06-28 12:00] VITALS: BP 117/57
--- NOTE | 2019-06-28 12:18 | IPNPDOC ---
Text Note Date of Service The patient was seen on 06/28/19. NOTE SUBJECTIVE: Feeling well , No complaints this morning. no c/o dizziness, ligh theadedness, palpitations, fever, cough, sob. Telemetry shows sinus rhythm. OBJECTIVE: PHYSICAL EXAMINATION: VITAL SIGNS:reviewed, pls see below GENERAL: conversant no distress. no accessory respiratory muscle use. HEENT: no pallor, no icterus or jaundice. NECK: well-healed suture across the neck from prior thyroidectomy. No JVD. LUNGS: Diminished but clear to auscultation. No wheezes, rales, or rhonchi. HEART: S1, S2, irregularly irregular rhythm. ABDOMEN: Soft, nontender, nondistended. Positive bowel sounds. No rebound, guarding. No hepatosplenomegaly or abdominal bruits. EXTREMITIES: No cyanosis, clubbing, or any pitting edema. NEURO: No focal neuro deficits. Awake, alert, oriented x 3. LABORATORY DATA, MICROBIOLOGY, IMAGING STUDIES: REVIEWED, PLS SEE BELOW ASSESSMENT AND PLAN: This is an 79-year-old female with a history of recent parathyroidectomy on June 15 presented to the emergency room (ER) with diarrhea, weakness, nausea, tremors, poor appetite, leg cramping, jittery and nervousness. Was found to be tachycardic. Was hypoglycemic, calcium of 6.5, magnesium of 1.2. Atrial flutter, new onset on propranolol, low dose eliquis. collection support specialist, Dr. Cameron has been consulted for mgt Electrolytes abnormalities with symptomatic hypocalcemia post parathyroidectomy. negative telemetry overnight. continue vit D and calcium in current dosage. Acute kidney injury, resolved. Responded to IV fluid hydration. Hyperthyroidism. T4 and TSH have been reviewed. Hypertension. Resumed on home meds hydralazine, coreg. History of coronary artery disease (CAD) and stents, on aspirin and Plavix, beta jair. isosorbide. Type 2 diabetes, on insulin sliding scale. Diarrhea, resolved. negative GI panel. VS,Fishbone, I+O VS, Fishbone, I+O Laboratory Tests 06/27/19 18:01 06/28/19 05:14 Anion Gap 9 Vital Signs Date Time Temp Pulse Resp B/P (MAP) Pulse Ox O2 Delivery O2 Flow Rate FiO2 06/28/19 11:20 85 06/28/19 08:46 134/64 06/28/19 08:00 96.7 18 91 06/28/19 07:55 06/25/19 13:42 Nasal Cannula I&O- Last 24 Hours up to 6 AM 06/28/19 06:00 Intake Total 1238 ml Output Total 1900 ml Balance -662 ml IVONNE LEON MD Jun 28, 2019 12:18
[2019-06-28 20:00] VITALS: BP 131/61
--- NOTE | 2019-06-28 21:03 | IPN ---
DATE: 06/28/2019 CARDIOLOGY PROGRESS NOTE SUBJECTIVE: The patient has been up in the room and feeling well. No further loose bowel movements or dizziness or twitching. Appears to be tolerating her medications without adverse effect. OBJECTIVE: This pleasant elderly lady of medium body build lay comfortably. Heart rate currently 96 beats per minute and regular, blood pressure 120/68, oxygen (O2) saturation 95% on room air with respiratory rate 16. Afebrile. Slight pallor but normal oral moisture. No cyanosis. TUBE TEST TECHNICIAN: This has shown chiefly sinus rhythm with first-degree atrioventricular (AV) block and occasional isolated premature ventricular contraction (PVC). No further atrial fibrillation. EKG: Study performed this morning was reviewed independently and shows sinus rhythm at 98 beats per minute (BPM) with isolated PVC. Left atrial conduction disturbance with first-degree AV block. Slightly prominent precordial voltage with lateral strain pattern in keeping with hypertensive heart disease. Slightly slower rate than on admission with less marked repolarization abnormalities. BLOOD WORK: No followup complete blood count today, but her chemistry confirms electrolyte balance with BUN 21, creatinine 0.97, fasting glucose 116. Her calcium today dropped slightly from 8.4 yesterday to 8.0 today. Albumin is 2.6. Her followup Troponin I level was 0.04. IMPRESSION/PLAN: 1. Paroxysmal atrial fibrillation: On her current combination carvedilol low-dose aspirin and Eliquis, has remained free of symptomatic arrhythmia. With current hold parameters, has received only one dose of propranolol. As mentioned, I believe her hyperthyroidism will be a temporary phenomenon, and I have discussed with the patient that in addition to her carvedilol 25 mg twice a day, we will plan on discharging her home with a small supply of propranolol 10 mg four times a day only if her heart rate is faster than 90 beats per minute. 2. Post parathyroidectomy hypocalcemia: Her calcium level had dropped slightly despite a good dose of calcium carbonate orally. Her vitamin D dosage has been increased to 5000 units daily. Temporarily off her Lasix and potassium. Her potassium has remained stable as have BUN and creatinine. Her weight has been stable, temporarily holding her diuretic therapy. 3. First-degree AV block: Has remained free of high-grade AV block despite her beta jair therapy. For the time being, remains on telemetry. 4. Heart failure (diastolic/acute on chronic): Believed to be compensated with stable weight as mentioned. I have discussed with the patient she should continue a modest salt and fluid intake restriction and resume Lasix 40 mg daily with her potassium replacement only if her home weight increases by 2 pounds. Should her home weight increase by 4 pounds, she will resume her customary Lasix 40 mg by mouth twice a day. No change will be planned to her carvedilol, isosorbide dinitrate and hydralazine. 5. Hypertensive heart disease (benign with heart failure): Current blood pressure is well controlled on her combination medical therapy. Management as per problem #4. 6. Coronary artery disease ([place] vessel)/post left anterior descending (LAD) and circumflex stenting: Continues to be free of symptomatic myocardial ischemia on her combination medical therapy. EKG repolarization abnormalities have improved from admission and Troponin I level remains negative. No change has been made to her protective carvedilol, Imdur, low dose aspirin and low dose Eliquis. As discussed with her current provider, if she remains free of atrial tachyarrhythmia, her hemoglobin remains at least 9.5 or higher and her calcium level not decrease any further, she should be able to be discharged home tomorrow and be followed as an outpatient.
[2019-06-28] MEDS: ATORVASTATIN 20 MG TAB PO SCH (21:54)
[2019-06-28 23:59] VITALS: BP 117/65
[2019-06-29 04:00] VITALS: BP 121/58
[2019-06-29 05:57] LABS: BASO % 0.5 % (0.0-1.0); EOS # 0.3 10^3/uL (0.0-0.5); EOS % 4.4 % (0.0-3.0); HEMATOCRIT 27.7 % (36.0-47.0); LYMPH # 0.7 10^3/uL (1.5-5.0); LYMPH % 13.2 % (24.0-44.0); MEAN CORPUSCULAR HEMOGLOBIN 28.8 pg (27.0-33.0); MEAN CORPUSCULAR HGB CONC 32.5 g/dl (32.0-36.5); MEAN CORPUSCULAR VOLUME 88.8 fl (80.0-96.0); MONO # 0.6 10^3/uL (0.0-0.8); MONO % 10.7 % (0.0-5.0); NEUTROPHILS % 70.7 % (36.0-66.0); PLATELET COUNT, AUTOMATED 296 10^3/uL (150-450); RED BLOOD COUNT 3.12 10^6/uL (4.00-5.40); WHITE BLOOD COUNT 5.6 10^3/uL (4.0-10.0)
--- NOTE | 2019-06-29 05:58 | ECGEPIP ---
[facility] Test Date: 2019-06-28 Pat Name: SHAMAR OLIVO Department: Room: [place] [address] Gender: Female Spiritual Care Coordinator: MEGAN : 1940 Requested By: Dante Cameron Order Number: [id number] Reading MD: Ggii Tapia Measurements Intervals [place] Rate: 80 P: 54 [place]: 235 QRS: 24 QRSD: 98 T: 100 QT: 390 QTc: [address] & T-WAVE ABNORMALITY Electronically Signed on 06-29-2019 5:57:58 EDT by Gigi Tapia
[2019-06-29] MEDS: PROPRANOLOL 10 MG TAB PO SCH (06:00)
[2019-06-29 06:20] LABS: ALBUMIN 2.4 GM/DL (3.2-5.2); CALCIUM LEVEL 8.6 MG/DL (8.8-10.2); GLOMERULAR FILTRATION RATE 56.6 (>32); PHOSPHORUS LEVEL 2.9 MG/DL (2.5-4.9); POTASSIUM SERUM 4.4 MEQ/L (3.5-5.1)
[2019-06-29 07:00] VITALS: BP 136/62
[2019-06-29] MEDS: ASPIRIN 81 MG ENTERIC TAB PO SCH (08:34)
[2019-06-29] MEDS: CALCIUM CARB SUSP 1250MG/5ML UNIT DOSE CUP PO SCH (08:34)
[2019-06-29] MEDS: HumaLOG INSULIN (NovoLOG) PER UNIT SC SCH (08:34)
[2019-06-29] MEDS: VITAMIN D 1,000 INTERNATIONAL UNITS TABLET PO SCH (08:34)
[2019-06-29 08:35] VITALS: BP 136/62
[2019-06-29] MEDS: OMEPRAZOLE 20 MG CAP PO SCH (08:35)
[2019-06-29] MEDS: APIXABAN 2.5 MG TAB (ELIQUIS) PO SCH (08:35)
[2019-06-29] MEDS: CARVedilol 12.5 MG TAB PO SCH (08:35)
[2019-06-29] MEDS: **hydrALAZINE** 10 MG TAB PO SCH (08:35)
[2019-06-29] MEDS: ISOSORBIDE MON. (IMDUR) 30 MG XR TAB PO SCH (08:36)
[2019-06-29] MEDS ORDERED: ELIQ2.5T PO (08:50)
[2019-06-29] MEDS ORDERED: FERR325T3 PO (08:50)
[2019-06-29] MEDS ORDERED: CHOL100029 PO (08:50)
[2019-06-29] MEDS ORDERED: TUMS750C5 PO (08:50)
[2019-06-29] MEDS ORDERED: PROP10TA56 PO ×2 (08:51→08:53)
--- NOTE | 2019-06-29 11:07 | DS.PDOC ---
Discharge Summary General Date of Admission Jun 24, 2019 at 20:05 Date of Discharge 06/29/19 Discharge Summary PROCEDURES PERFORMED DURING STAY: [None]. DISCHARGE DIAGNOSES: Post Parathyroidectomy Hypocalcemia Paroxysmal atrial fibrillation First degree AV block. Electrolyte imbalance with hypomagnesemia and hypocalcemia Hyperthyroidism Diastolic CHF acute on chronic Hypertension wit hypertensive heart disease CAD s/p stents Anemia RUBI Diabetes Chronic diarrhea COMPLICATIONS/CHIEF COMPLAINT: Hypocalcemia. HISTORY OF PRESENT ILLNESS: See history and physical HOSPITAL COURSE: This is an 79-year-old female with a history of recent parathyroidectomy on June 15 presented to the emergency room (ER) with diarrhea, weakness, nausea, tremors, poor appetite, leg cramping, jittery and nervousness. Was found to be tachycardic. Was hypoglycemic, calcium of 6.5, magnesium of 1.2. Paroxysmal Atrial flutter/ atrial fibrillation new onset on propranolol, coreg low dose eliquis. follow up [employer] internship, Dr. Cameron Electrolytes abnormalities with symptomatic hypocalcemia post parathyroidectomy. negative telemetry overnight. continue vit D and calcium in current dosage. Acute kidney injury, resolved. Responded to IV fluid hydration. hold lasix Hyperthyroidism. T4 and TSH have been reviewed. continue propranolol q 6 hours if heart rate . 90 this is probably temporary. out pateint follow up of thyroid profile in 2 weeks Hypertension. Resumed on home meds hydralazine, coreg. History of coronary artery disease (CAD) and stents, on aspirin and Plavix, beta jair. isosorbide. Diastolic CHF acute on chronic at present euvolemic lasix on hold due to diarrhea and dehydration with RUBI Type 2 diabetes resume home meds. Diarrhea, resolved. negative GI panel. DISCHARGE MEDICATIONS: Please see below. ALLERGIES: Please see below. PHYSICAL EXAMINATION ON DISCHARGE: VITAL SIGNS: Please see below. GENERAL: conversant no distress. no accessory respiratory muscle use. HEENT: no pallor, no icterus or jaundice. NECK: well-healed suture across the neck from prior thyroidectomy. No JVD. LUNGS: Diminished but clear to auscultation. No wheezes, rales, or rhonchi. HEART: S1, S2, irregularly irregular rhythm. ABDOMEN: Soft, nontender, nondistended. Positive bowel sounds. No rebound, guarding. No hepatosplenomegaly or abdominal bruits. EXTREMITIES: No cyanosis, clubbing, or any pitting edema. NEURO: No focal neuro deficits. Awake, alert, oriented x 3. LABORATORY DATA: Please see below. ACTIVITY: [As tolerated]. DIET: As tolerated DISCHARGE PLAN: Home DISPOSITION: . DISCHARGE INSTRUCTIONS: Follow up PMD in [address] Cameron in 1 to 2 weeks ITEMS TO FOLLOWUP ON ON OUTPATIENT: Thyroid profile in 2 weeks Basic metabolic profile DISCHARGE CONDITION: [Stable]. TIME SPENT ON DISCHARGE: 35 minutes. Vital Signs/I&Os Vital Signs Date Time Temp Pulse Resp B/P (MAP) Pulse Ox O2 Delivery O2 Flow Rate FiO2 06/28/19 23:59 97.2 108 16 117/65 (82) 98 06/28/19 07:55 06/25/19 13:42 Nasal Cannula I&O- Last 24 Hours up to 6 AM 06/29/19 06:00 Intake Total 1100 ml Output Total 550 ml Balance 550 ml Laboratory Data Labs 24H Laboratory Tests 2 06/28/19 11:35: Bedside Glucose (Misc Panel) 181H 06/28/19 16:52: Bedside Glucose (Misc Panel) 161H 06/28/19 21:58: Bedside Glucose (Misc Panel) 217H 06/29/19 05:31: Immature Granulocyte % (Auto) 0.5, White Blood Count 5.6, Red Blood Count 3.12L, Hemoglobin 9.0L, Hematocrit 27.7L, Mean Corpuscular Volume 88.8, Mean Corpuscular Hemoglobin 28.8, Mean Corpuscular Hemoglobin Concent 32.5, Red Cell Distribution Width 13.3, Platelet Count 296, Neutrophils (%) (Auto) 70.7H, Lymphocytes (%) (Auto) 13.2L, Monocytes (%) (Auto) 10.7H, Eosinophils (%) (Auto) 4.4H, Basophils (%) (Auto) 0.5, Neutrophils # (Auto) 4.0, Lymphocytes # (Auto) 0.7L, Monocytes # (Auto) 0.6, Eosinophils # (Auto) 0.3, Basophils # (Auto) 0.0, Nucleated Red Blood Cells % (auto) 0.0 CBC/BMP Laboratory Tests 06/29/19 05:31 Red Blood Count 3.12 L, Mean Corpuscular Volume 88.8, Mean Corpuscular H emoglobin 28.8, Mean Corpuscular Hemoglobin Concent 32.5, Red Cell Distribution Width 13.3, Neutrophils (%) (Auto) 70.7 H, Lymphocytes (%) (Auto) 13.2 L, Monocytes (%) (Auto) 10.7 H, Eosinophils (%) (Auto) 4.4 H, Basophils (%) (Auto) 0.5, Neutrophils # (Auto) 4.0, Lymphocytes # (Auto) 0.7 L, Monocytes # (Auto) 0.6, Eosinophils # (Auto) 0.3, Basophils # (Auto) 0.0 FSBS Laboratory Tests Test 06/28/19 11:35 06/28/19 16:52 06/28/19 21:58 Range/Units Bedside Glucose (Misc Panel) 181 161 217 83-110 MG/DL Microbiology Microbiology 06/27/19 Stool Occult Blood (DANIELLA) - Final, Complete 06/25/19 Gastrointestinal Tract Panel (PCR) - Final, Complete Discharge Medications Scheduled Apixaban (Eliquis) 2.5 Mg Tablet, 2.5 MG PO BID Aspirin (Aspirin EC) 81 Mg Tablet.dr, 81 MG PO DAILY, (Reported) Atorvastatin Calcium (Lipitor) 20 Mg Tab, 20 MG PO QHS, (Reported) Calcium Carbonate (Tums) 300 Mg Tab.chew, 4 TAB PO TID Carvedilol (Coreg) 25 Mg Tab, 25 MG PO BID, (Reported) Etanercept (Enbrel) 25 Mg Inj, 25 MG SC 2XWK, (Reported) DUE FOR SECOND SHOT ON 06/27 Ferrous Sulfate (Ferrous Sulfate) 325 Mg Tablet.dr, 325 MG PO BID Furosemide (Lasix) 40 Mg Tab, 40 MG PO BID, (Reported) Glimepiride (Glimepiride) 2 Mg Tab, 2 MG PO BID, (Reported) Hydralazine HCl (Hydralazine HCl) 10 Mg Tablet, 10 MG PO TID, (Reported) Isosorbide Mononitrate (Isosorbide Mononitrate ER) 30 Mg Tab, 30 MG PO DAILY, (Reported) Leflunomide (Leflunomide) 20 Mg Tab, 20 MG PO Q2D, (Reported) Nitroglycerin (Nitrostat) 0.4 Mg Subl, 0.4 MG SL NITRO, (Reported) Omeprazole (Omeprazole) 20 Mg Capsule.dr, 20 MG PO QHS, (Reported) Propranolol HCl (Propranolol HCl) 10 Mg Tablet, 10 MG PO Q6H take only if Heart rate > 90 Sitagliptin (Januvia) 50 Mg Tab, 50 MG PO DAILY, (Reported) Spironolactone (Spironolactone) 25 Mg Tab, 25 MG PO DAILY, (Reported) Umeclidinium Brm/Vilanterol Tr (Anoro Ellipta 62.5-25 Mcg INH) 1 Aer Aer, 1 PUFF INH DAILY, (Reported) Vitamin D (Vitamin D3) 1,000 Unit Tablet, 5,000 UNITS PO DAILY Scheduled PRN Acetaminophen (Acetaminophen) 500 Mg Tablet, 1,000 MG PO Q6H PRN for PAIN, (Reported) Albuterol Sulfate (Ventolin Hfa) 108 Mcg/Act Aer, 1 PUFF INH Q4H PRN for WHEEZING, (Reported) Tramadol HCl (Tramadol HCl) 50 Mg Tab, 50 MG PO BID PRN for PAIN, (Reported) Allergies Coded Allergies: No Known Allergies (Unverified , 06/24/19) IVONNE LEON MD Jun 29, 2019 06:11
--- NOTE | 2019-06-29 18:58 | ECHO ---
DATE OF PROCEDURE: 06/28/2019 AGE: 79 GENDER: Female HEIGHT: 62 inches WEIGHT: 136 pounds BODY SURFACE AREA: 1.62 m2 PATIENT LOCATION: Inpatient, room 3213 REFERRING PHYSICIAN: Judith Carrillo MD INDICATION: Paroxysmal atrial fibrillation. 2-D MEASUREMENTS: RV: 2.8 cm LV: 5.2 cm Septum: 1.2 cm Posterior wall: 1.2 cm Aortic root: 2.9 cm LA: 4.5 cm LVEF: 65% DOPPLER MEASUREMENTS: AV: 1.2 m/s LVOT: 0.8 m/s LVOT diameter: 1.8 MV-E: 34, A: 120, EA ratio: 0.3 Early mitral deceleration time: 148 ms E prime: 5.8, A prime 4, E/E prime ratio: 5.9 PCWP: 6 mmHg PV: 0.6 m/s Pulmonary artery acceleration time: 80 ms RVSP: 47 mmHg IVC: 2.1 cm COMMENTS Normal sinus rhythm without intraventricular conduction disturbance. M-mode and two-dimensional echocardiography was performed with pulsed, continuous wave, color flow and tissue Doppler studies. Borderline concentric left ventricular hypertrophy with localized inferior/inferoseptal hypo to akinesis consistent with prior infarction, yet preserved global resting systolic function. Mildly dilated left atrium with Doppler evidence of an impairment of LV diastolic function but currently normal estimated mean left atrial pressure. Normal right heart chamber sizes and motion with Doppler evidence of at least moderate pulmonary hypertension. IVC size upper limits of normal with slightly reduced respiratory collapse in keeping with a slightly elevated central venous pressure. Mild aortic valvular sclerosis without stenosis and only very mild insufficiency. Normal aortic root size. Mild degenerative changes of the mitral valvular apparatus with mild insufficiency. Normal appearing tricuspid valve with mild insufficiency. No apparent intracardiac mass or pericardial effusion.
== END 2019-06-29 10:59 | disposition home or self-care (01) | DRG 641 ==
LOC: M ED 14:37 → M ED INP 20:05 → M PCU 06-25 13:54
PROVIDERS: ADMIT Internal Medicine; ATTEND Internal Medicine Nephrology
DX: E83.51 Hypocalcemia (principal); N17.9 Acute kidney failure, unspecified; I13.0 Hypertensive heart and chronic kidney disease with heart failure and stage 1 through stage 4 chronic kidney disease, or unspecified chronic kidney disease; I48.92 Unspecified atrial flutter; I50.32 Chronic diastolic (congestive) heart failure; N18.3 Chronic kidney disease, stage 3 (moderate); R06.02 Shortness of breath; E89.2 Postprocedural hypoparathyroidism; E83.42 Hypomagnesemia; E05.90 Thyrotoxicosis, unspecified without thyrotoxic crisis or storm; J44.9 Chronic obstructive pulmonary disease, unspecified; K21.9 Gastro-esophageal reflux disease without esophagitis; I25.10 Atherosclerotic heart disease of native coronary artery without angina pectoris; E06.4 Drug-induced thyroiditis; I44.0 Atrioventricular block, first degree; E78.00 Pure hypercholesterolemia, unspecified; R19.7 Diarrhea, unspecified; I48.0 Paroxysmal atrial fibrillation; M06.9 Rheumatoid arthritis, unspecified; E11.22 Type 2 diabetes mellitus with diabetic chronic kidney disease; Z95.5 Presence of coronary angioplasty implant and graft; Z90.49 Acquired absence of other specified parts of digestive tract; D64.9 Anemia, unspecified; Z90.710 Acquired absence of both cervix and uterus; Z79.82 Long term (current) use of aspirin; Z79.84 Long term (current) use of oral hypoglycemic drugs; Z79.899 Other long term (current) drug therapy; Z79.02 Long term (current) use of antithrombotics/antiplatelets; Z87.891 Personal history of nicotine dependence; Z98.41 Cataract extraction status, right eye; Z98.42 Cataract extraction status, left eye; Z86.711 Personal history of pulmonary embolism

== ENCOUNTER → 2019-06-24 | Outpatient (REF) | payer MEDICARE ==
[2019-06-24 19:11] LABS: C REACTIVE PROTEIN QUANTITATIV 14.2 MG/DL (0.00-0.30); PHOSPHORUS LEVEL 3.5 MG/DL (2.5-4.9)
== END ==
LOC: M LAB REF 18:23
PROVIDERS: ATTEND Internal Medicine
DX: R06.02 Shortness of breath (principal); N18.3 Chronic kidney disease, stage 3 (moderate)

== ENCOUNTER → 2019-08-10 | Outpatient (REF) | payer MEDICARE ==
[~2019-08-10] MED LIST changes: +ACET-683 PO; +ASPI81TA26 PO; +CHOL100029 PO; +D31000CA4 PO; +ELIQ2.5T PO; +FERR325T3 PO; -GLIM2TAB PO; +GLIM2TAB2 PO; +HYDR10TAB PO; +OMEP-218 PO; -OMEP40CA2 PO; +OMEP40CA97 PO; +POTA20TA6 PO; +PROP10TA56 PO; +TUMS500C PO; +TUMS750C5 PO
[2019-08-10 12:54] LABS: PERCENT SATURATION 31.8 % (13.2-45.0)
== END ==
LOC: M LAB REF 12:28
PROVIDERS: ATTEND Internal Medicine
DX: N18.3 Chronic kidney disease, stage 3 (moderate) (principal); D64.9 Anemia, unspecified

== ENCOUNTER 2019-11-09 15:34 | Inpatient (IN) | payer MEDICARE ==
[~2019-11-09] VITALS: Ht 157.5 cm; Wt 65.3 kg
[~2019-11-09 15:34] MED LIST changes: -ACET650T3 PO; -AMIO100T5 PO; -AMIO200T PO; -ANOR1AER PO; -C 50TAB PO; -CARV12.5 PO; -MAGN200T PO; -MAGN400T2 PO; -MULTCAP PO; -TUMS1000 PO; -VITA100054 PO; -VITA500C24 PO; -VITMTA PO; -VOLT1GEL15 TD
[2019-11-09] MEDS ORDERED: POTA20TA6 PO ×2 (15:52→23:50)
[2019-11-09] MEDS ORDERED: TUMS1000 PO (15:52)
[2019-11-09] MEDS ORDERED: VITA500C24 PO (15:52)
[2019-11-09] MEDS ORDERED: ANOR1AER PO (15:52)
[2019-11-09] MEDS ORDERED: AMIO100T5 PO (15:52)
[2019-11-09] MEDS ORDERED: GLIM2TAB4 PO ×2 (15:52→23:47)
[2019-11-09] MEDS ORDERED: MAGN200T PO (15:52)
[2019-11-09] MEDS ORDERED: VITA100054 PO ×2 (15:52→23:47)
[2019-11-09] MEDS ORDERED: MULTCAP PO (15:52)
[2019-11-09 16:23] LABS: BASO % 0.6 % (0.0-1.0); EOS # 0.2 10^3/uL (0.0-0.5); EOS % 3.7 % (0.0-3.0); HEMOGLOBIN 12.8 g/dl (12.0-15.5); LYMPH # 0.7 10^3/uL (1.5-5.0); LYMPH % 11.9 % (24.0-44.0); MEAN CORPUSCULAR HEMOGLOBIN 28.4 pg (27.0-33.0); MEAN CORPUSCULAR VOLUME 88.7 fl (80.0-96.0); MONO # 0.7 10^3/uL (0.0-0.8); MONO % 12.7 % (0.0-5.0); NEUTROPHILS # 3.8 10^3/uL (1.5-8.5); NEUTROPHILS % 70.4 % (36.0-66.0); PLATELET COUNT, AUTOMATED 269 10^3/uL (150-450); RED BLOOD COUNT 4.51 10^6/uL (4.00-5.40); WHITE BLOOD COUNT 5.5 10^3/uL (4.0-10.0)
[2019-11-09 16:50] LABS: ALBUMIN 3.7 GM/DL (3.2-5.2); BILIRUBIN,DIRECT 0.2 MG/DL (0.0-0.2); BILIRUBIN,TOTAL 0.7 MG/DL (0.2-1.0); CALCIUM LEVEL 8.8 MG/DL (8.8-10.2); CREATININE FOR GFR 1.69 MG/DL (0.55-1.30); GLOMERULAR FILTRATION RATE 30.9 (>32); POTASSIUM SERUM 3.6 MEQ/L (3.5-5.1); TOTAL PROTEIN 8.5 GM/DL (6.4-8.2)
[2019-11-09] MEDS ORDERED: ONDANSETRON 4MG/2ML VIAL (J2405) IV ONE (17:15)
[2019-11-09] MEDS ORDERED: NS 1,000 ML IV SCH (17:15)
[2019-11-09] MEDS: GASTROGRAFIN SOLUTION 30ML PO SCH ×2 (17:36→18:12)
--- NOTE | 2019-11-09 22:42 | REPVR ---
PROCEDURE INFORMATION: Exam: CT Abdomen And Pelvis Without Contrast Exam date and time: 11/09/2019 7:59 PM Age: 79 years old Clinical indication: Abdominal pain; Generalized; Additional info: Lower abdominal pain/vomting; R/O obstruction TECHNIQUE: Imaging protocol: Computed tomography of the abdomen and pelvis without contrast. Radiation optimization: All CT scans at this facility use at least one of these dose optimization techniques: automated exposure control; mA and/or kV adjustment per patient size (includes targeted exams where dose is matched to clinical indication); or iterative reconstruction. COMPARISON: MRI-Hip WITHOUT CONTRAST 06/30/2018 7:43 AM FINDINGS: Lungs: Atelectasis right lower lobe. Liver: Normal. No mass. Gallbladder and bile ducts: There has been a cholecystectomy. Pancreas: Normal. No ductal dilation. Spleen: Normal. No splenomegaly. Adrenals: There is bilateral adrenal hyperplasia. Kidneys and ureters: Small cyst right kidney measures 9 mm. Hyperdense cyst right kidney measures 10 mm. Stomach and bowel: Thickened wall of the gastric cardia and fundus may be related to incomplete distention however infiltrating neoplasm should be excluded clinically. Abnormal thickening of the cecum and proximal ascending colon consistent with neoplasm with adenocarcinoma or lymphoma to be considered. There is pericolonic inflammation demonstrated surrounding the cecum and proximal right colon which may be related to lymphatic obstruction or occult diverticulitis. Appendix: No evidence of appendicitis. Intraperitoneal space: Unremarkable. No free air. No significant fluid collection. Vasculature: Calcifications in the coronary arteries. The aorta demonstrates moderate atherosclerotic calcification. Ectatic abdominal aorta measures up to 2.6 cm maximally. Lymph nodes: Unremarkable. No enlarged lymph nodes. Bladder: Unremarkable as visualized. Reproductive: There has been a hysterectomy. Bones/joints: The spine demonstrates moderate degenerative changes. S shaped scoliosis lumbar spine. Mild to moderate central spinal stenosis L2-L3 severe spinal stenosis L3-L4 and L4-L5. Degenerative facet joint arthropathy at L5-S1. Soft tissues: Unremarkable. IMPRESSION: 1. There has been a cholecystectomy. 2. Thickened wall of the gastric cardia and fundus may be related to incomplete distention however infiltrating neoplasm should be excluded clinically. 3. There is bilateral adrenal hyperplasia. No follow-up necessary. 4. Abnormal thickening of the cecum and proximal ascending colon consistent with neoplasm with adenocarcinoma or lymphoma to be considered. There is pericolonic inflammation demonstrated surrounding the cecum and proximal right colon which may be related to lymphatic obstruction or occult diverticulitis. 5. Small cyst right kidney measures 9 mm. Hyperdense cyst right kidney measures 10 mm. Correlation with ultrasound suggested. 6. There has been a hysterectomy. COMMENT: Consistent with the [employer]'s Incidental Findings Committee white paper (J Am Chaya Radiol 2018): Any incidental cystic renal lesion classified in this report as too small to characterize or simple appearing is likely a benign cyst. No follow-up imaging is recommended for these lesions per consensus recommendations based on imaging criteria. Electronically signed by: Shon Castillo On 11/09/2019 22:42:43 PM
[2019-11-09] MEDS ORDERED: CARV12.5 PO (23:47)
[2019-11-09] MEDS ORDERED: AMIO200T PO (23:47)
[2019-11-09] MEDS ORDERED: MAGN400T2 PO (23:47)
[2019-11-09] MEDS ORDERED: C 50TAB PO (23:47)
[2019-11-09] MEDS ORDERED: ELIQ2.5T PO (23:47)
[2019-11-09] MEDS ORDERED: ACET650T3 PO (23:47)
[2019-11-09] MEDS ORDERED: VITMTA PO (23:50)
[2019-11-09] MEDS ORDERED: VOLT1GEL15 TD (23:50)
[2019-11-09] MEDS ORDERED: ANOR1AER INH (23:50)
--- NOTE | 2019-11-09 23:53 | HPEPDOC ---
[facility] Medical History & Physical Date of Admission Nov 09, 2019 Date of Service: Nov 09, 2019 Primary Care Physician: Jr Billings Collins Attending Physician: FRANCOISE MONTERO MD History and Physical TIME OF SERVICE: 11:22 PM CHIEF COMPLAINT: Nausea, vomiting and diarrhea HISTORY OF PRESENT ILLNESS: This is an 79-year-old female presents with complaints of nausea, nonbloody vomi ting and bloody diarrhea for a few days. Today she developed 4 out of 10 lower abdominal pain that improved after she had a bowel movement. Therefore, she decided to come to the ER for evaluation. She cannot identify any factors that made the abdominal pain worse. She denies having fevers or chills, but reports feeling cold all the time, has lost weight and sweats at night. REVIEW OF SYSTEMS: 12 point review of systems negative except as listed in HPI PAST MEDICAL/ SURGICAL HISTORY: Rheumatoid arthritis Paroxysmal Atrial fibrillation First-degree AV block CAD status post stent LAD in 1996, and stent to circumflex in 2007 Chronic hypertension/HFpEF (she has a remote history of systolic heart failure) COPD/pulmonary fibrosis Chronic oxygen-dependent respiratory failure (dependence on 2 L O2) History of PE Prediabetes GERD Status post section of parathyroid adenoma to manage hypercalcemia Status post open total hysterectomy 1995. Status post open cholecystectomy in 1984. Status post bilateral cataract extractions in 2011. SOCIAL HISTORY: She is a former smoker FAMILY HISTORY: CAD Atrial fibrillation ALLERGIES: Please see below. HOME MEDICATIONS: Please see below. PHYSICAL EXAMINATION: VITAL SIGNS: Please see below. GEN: well-nourished / well developed/ NAD INTEGUMENT: not flushed/ not jaundice / she she has old post open cholecystectomy and hysterectomy scars at her right upper and mid lower abdomen, respectively HEENT: mucus membranes moist and pink / sclera anicteric CVS: RRR/NMRG/ no lower extremity edema LUNGS: clear to auscultation bilaterally on room air ABDOMEN: Contour (flat) / there are no masses or lesions / bowel sounds are present / the abdomen is soft & not tender with palpation MSK/EXTREMITIES: range of motion intact in all 4 extremities NEURO: CN 2-12 are grossly intact / speech is not dysarthric PSYCH: alert and oriented to person place and time/ able to understand and follow all commands LABORATORY DATA: See below. IMAGING: CT abdomen and pelvis " IMPRESSION: 1. There has been a cholecystectomy. 2. Thickened wall of the gastric cardia and fundus may be related to incomplete distention however infiltrating neoplasm should be excluded clinically. 3. There is bilateral adrenal hyperplasia. No follow-up necessary. 4. Abnormal thickening of the cecum and proximal ascending colon consistent with neoplasm with adenocarcinoma or lymphoma to be considered. There is pericolonic inflammation demonstrated surrounding the cecum and proximal right colon which may be related to lymphatic obstruction or occult diverticulitis. 5. Small cyst right kidney measures 9 mm. Hyperdense cyst right kidney measures 10 mm. Correlation with ultrasound suggested. 6. There has been a hysterectomy. MICROBIOLOGY: Please see below. ASSESSMENT: Ms. Valverde is an 79 yr old with history of RA, paroxysmal A. fib, CAD, HTN, HFpEF, COPD, chronic O2 dependence, history of PE, pre-DM, GERD, and multiple abdominal surgeries, who is admitted for evaluation of nausea, vomiting and bloody diarrhea. PLAN: 1. Nausea, vomiting and bloody diarrhea Possibly due to infection vs GI malignancy Because the patient is over 60 years old, has lost weight, and has low/normal hemoglobin and has reported having bright red blood per rectum I suspect that the areas of thickening in the stomach and colon may represent cancer. Plan: Admit to medical floor/CLD/IV fluids/Zofran for vomiting/follow-up stool studies/ hold Elquis and aspirin for endoscopy on Thursday by Dr. Verduzco 2. RUBI Likely due to prerenal azotemia in the setting of vomiting and diarrhea. The UA is unremarkable. Her creatinine is 1.69, up from her baseline of 1, while her GFR has dropped to 30.9 from her baseline of around 56.6 The UA is unremarkable Plan: Is/Os, daily weights / 500ml of IVF bc of hx of CHF / f/u ulytes for FEUrea & renal US / hold potassium supplement to reduce risk of hyperkalemia and hold omeprazole because it can cause interstitial nephritis 3. Kidney cyst. - Plan: Follow up renal ultrasound 4. Rheumatoid arthritis - Plan: entanercept and leflunomide as scheduled 5. Paroxysmal Atrial fibrillation - Plan: Amiodarone, hold Elquis 6. Chronic CAD - Plan: Hold aspirin, continue atorvastatin, carvedilol, nitroglycerin 7. Chronic hypertension/HFpEF - Plan: Resume Furosemide, Coreg, spironolactone, isosorbide with hydralazine 8. COPD/pulmonary fibrosis / Chronic oxygen-dependent respiratory failure - Plan: Supplemental O2, Albuterol when necessary 9. Prediabetes - Plan: f/u accuchecks & A1C / hypoglycemia protocol / sliding scale insulin / hold oral anti-glycemics 10. GERD - Plan: Tums DVT PROPHYLAXIS: SCDs DISPOSITION: Home after more than 2 midnight's stay LATE ENTRY #Norovirus and Adenovirus Infections Stool studies were reviewed Plan: Contact precautions/because she is on Enbrel for RA, she is immunosuppressed and may be a candidate for cidofovir, the daytime team may consider ID consult to discuss whether any treatment is warranted in her case Vital Signs Vital Signs Date Time Temp Pulse Resp B/P (MAP) Pulse Ox O2 Delivery O2 Flow Rate FiO2 11/09/19 23:04 73 16 91 Nasal Cannula 4.0 11/09/19 23:00 118/57 (77) 11/09/19 15:35 97.4 Laboratory Data Labs 24H Laboratory Tests 2 11/09/19 16:05: Immature Granulocyte % (Auto) 0.7, Neutrophils (%) (Auto) 70.4H, Lymphocytes (%) (Auto) 11.9L, Monocytes (%) (Auto) 12.7H, Eosinophils (%) (Auto) 3.7H, Basophils (%) (Auto) 0.6, Neutrophils # (Auto) 3.8, Lymphocytes # (Auto) 0.7L, Monocytes # (Auto) 0.7, Eosinophils # (Auto) 0.2, Basophils # (Auto) 0.0, Nucleated Red Blood Cells % (auto) 0.0, Anion Gap 8, Glomerular Filtration Rate 30.9L, Calcium Level 8.8, Total Bilirubin 0.7, Direct Bilirubin 0.2, Aspartate Amino Transf (AST/SGOT) 49H, Alanine Aminotransferase (ALT/SGPT) 58, Alkaline Phosphatase 87, Total Protein 8.5H, Albumin 3.7, Albumin/Globulin Ratio 0.77L, Lipase 70L 11/09/19 16:55: Urine Color YELLOW, Urine Appearance HAZY, Urine pH 5.0, Urine Specific [place] 1.012, Urine Protein NEGATIVE, Urine Glucose (UA) NEGATIVE, Urine Ketones NEGA TIVE, Urine Blood NEGATIVE, Urine Nitrite NEGATIVE, Urine Bilirubin NEGATIVE, Urine Urobilinogen 0.2, Urine Leukocyte Esterase NEGATIVE, Urine WBC (Auto) 1, Urine RBC (Auto) 1, Urine Hyaline Casts (Auto) 19, Urine Bacteria (Auto) NEGATIVE, Urine Squamous Epithelial Cells 0, Urine Mucus (Auto) SMALL, Urine Sperm (Auto) CBC/BMP Laboratory Tests 11/09/19 16:05 Microbiology Microbiology 11/09/19 Gastrointestinal Tract Panel (PCR), Received Pending Home Medications Scheduled Amiodarone HCl (Amiodarone HCl) 200 Mg Tablet, 200 MG PO BID Apixaban (Eliquis) 2.5 Mg Tablet, 2.5 MG PO BID Ascorbic Acid (Vitamin C) 500 Mg Tablet, 500 MG PO QHS Aspirin (Aspirin EC) 81 Mg Tablet.dr, 81 MG PO QHS Atorvastatin Calcium (Lipitor) 20 Mg Tab, 20 MG PO QHS Calcium Carbonate (Tums Ultra) 400 Mg Tab.chew, 1,000 MG PO BID Carvedilol (Carvedilol) 12.5 Mg Tablet, 12.5 MG PO BID Cholecalciferol (Vitamin D3) (Vitamin D3) 1,000 Unit Capsule, 1,000 UNIT PO DAILY Etanercept (Enbrel) 25 Mg Inj, 25 MG SC 2XWK THURSDAY AND THURSDAY Furosemide (Lasix) 40 Mg Tab, 40 MG PO BID Glimepiride (Glimepiride) 2 Mg Tab, 2 MG PO DAILY Glimepiride (Glimepiride) 2 Mg Tablet, 4 MG PO QPM DINNERTIME Hydralazine HCl (Hydralazine HCl) 10 Mg Tablet, 10 MG PO TID Isosorbide Mononitrate (Isosorbide Mononitrate ER) 30 Mg Tab, 30 MG PO DAILY Leflunomide (Leflunomide) 20 Mg Tab, 20 MG PO Q2D EVERY OTHER NIGHT Magnesium Oxide (Magnesium Oxide) 400 Mg Tablet, 400 MG PO QPM DINNERTIME Multivitamins (Thera M Plus Tablet) 1 Each Tablet, 1 TAB PO DAILY Omeprazole (Omeprazole) 20 Mg Capsule.dr, 20 MG PO QHS Potassium Chloride (Potassium Chloride) 20 Meq Tab.er.prt, 20 MEQ PO DAILY Sitagliptin (Januvia) 50 Mg Tab, 50 MG PO DAILY Spironolactone (Spironolactone) 25 Mg Tab, 25 MG PO DAILY Umeclidinium Brm/Vilanterol Tr (Anoro Ellipta 62.5-25 Mcg INH) 1 Each Blst.w.dev, 1 PUFF INH DAILY Scheduled PRN Acetaminophen (Pain Reliever) 650 Mg Tablet.er, 650 MG PO BID PRN for PAIN Albuterol Sulfate (Ventolin Hfa) 108 Mcg/Act Aer, 2 PUFF INH Q4H PRN for SHORTNESS OF BREATH Diclofenac Sodium (Voltaren) 100 Gm Gel..gram., 2 GRAM TD TID PRN for PAIN APPLIED TO HANDS OR BACK NEEDED FOR PAIN Nitroglycerin (Nitrostat) 0.4 Mg Subl, 0.4 MG SL NITRO PRN for CHEST PAIN Tramadol HCl (Tramadol HCl) 50 Mg Tab, 50 MG PO BID PRN for PAIN Allergies Coded Allergies: No Known Allergies (Unverified , 06/24/19) A-FIB/CHADSVASC A-FIB History Current/History of A-Fib/PAF?: No Current PO Anticoag Therapy: No Age/Risk Factor Scoring CHADSVASC: CHADSVASC Response (Comments) Value Age Risk Factor Age >/= 75 years old 2 Gender Risk Factor Female 1 Hx of CHF Yes 1 Hx of HTN Yes 1 Hx of Stroke/TIA/or VTE No 0 Hx of Diabetes Yes 1 Hx of Vascular Disease Yes 1 Total 7 Treatment Treatment ordered: Holding Other Reason Anticoagulant not given: Recent/upcomin procedure FRANCOISE MONTERO MD Nov 09, 2019 23:53
[2019-11-10] MEDS ORDERED: ONDANSETRON 4MG/2ML VIAL (J2405) IV PRN
[2019-11-10] MEDS ORDERED: ACETAMINOPHEN 650MG ER TAB (TYLENOL ARTHRITIS) PO PRN (00:45)
[2019-11-10] MEDS ORDERED: NITROGLYCERIN 0.4 MG SUBL TABLET SL PRN (00:45)
[2019-11-10] MEDS ORDERED: ALBUTEROL 90 MCG/ACT 8GM HFA INHALER INH PRN (00:45)
[2019-11-10] MEDS ORDERED: traMADol 50 MG TAB PO PRN (00:45)
[2019-11-10 02:01] VITALS: BP 143/60
[2019-11-10] MEDS: ATORVASTATIN 20 MG TAB PO SCH ×2 (02:33→22:36)
[2019-11-10] MEDS: OMEPRAZOLE 20 MG CAP PO SCH ×2 (02:33→22:32)
[2019-11-10] MEDS: MAGNESIUM OXIDE 400 MG TAB (MAG-OX) PO SCH ×2 (02:33→22:32)
[2019-11-10] MEDS: ASCORBIC ACID 500 MG TAB PO SCH ×2 (02:33→22:33)
[2019-11-10] MEDS: NS 1,000 ML IV SCH ×2 (02:36→16:30)
[2019-11-10] MEDS ORDERED: GLUCAGON FOR INJ 1 MG VIAL (J1610) SC PRN (03:30)
[2019-11-10] MEDS ORDERED: GLUCOSE 4 GM CHEW TABLET PO PRN (03:30)
[2019-11-10] MEDS ORDERED: DEXTROSE 50% 50 ML SYRINGE IV PRN (03:30)
[2019-11-10 06:00] VITALS: BP 118/48
[2019-11-10 06:30] LABS: HEMATOCRIT 35.5 % (36.0-47.0); HEMOGLOBIN 10.9 g/dl (12.0-15.5); MEAN CORPUSCULAR HEMOGLOBIN 27.7 pg (27.0-33.0); MEAN CORPUSCULAR HGB CONC 30.7 g/dl (32.0-36.5); MEAN CORPUSCULAR VOLUME 90.3 fl (80.0-96.0); PLATELET COUNT, AUTOMATED 233 10^3/uL (150-450); RED BLOOD COUNT 3.93 10^6/uL (4.00-5.40); WHITE BLOOD COUNT 8.8 10^3/uL (4.0-10.0)
[2019-11-10 06:50] LABS: CREATININE FOR GFR 1.47 MG/DL (0.55-1.30); GLOMERULAR FILTRATION RATE 36.3 (>32); MAGNESIUM LEVEL 2.2 MG/DL (1.8-2.4); POTASSIUM SERUM 3.3 MEQ/L (3.5-5.1)
[2019-11-10] MEDS: HumaLOG INSULIN (NovoLOG) PER UNIT SC SCH ×3 (07:30→17:30)
--- NOTE | 2019-11-10 07:46 | REP ---
Renal ultrasound: Right kidney measures 10.0 x 5.0 x 4.8 cm. Left kidney measures 9.7 x 4 0 x 5.2 cm. The kidneys are normal size. There are right renal cortical echogenicity is increased bilaterally. This is compatible with medical renal disease. There is no hydronephrosis. There is a cyst in each kidney inferolaterally, on the right measuring 7 x 9 mm and on the left measuring 6 x 5 mm. There are no renal calculi. There are no solid renal masses. Bladder: The bladder is collapsed and cannot be further evaluated. Impression: Increased renal cortical echogenicity bilaterally, compatible with medical renal disease. There is a single small cyst in each kidney. Electronically Signed by Subhash Bennett MD 11/10/2019 07:37 A
[2019-11-10] MEDS ORDERED: POTASSIUM CHLORIDE 10 MEQ SR TABLET PO ONE (08:30)
[2019-11-10] MEDS ORDERED: POTASSIUM CHLORIDE 10 MEQ SR TABLET PO SCH (09:00)
[2019-11-10] MEDS ORDERED: SPIRONOLACTONE 25 MG TAB PO SCH (09:00)
[2019-11-10] MEDS: MULTIVITAMINS/MINERALS THERAP 1 TAB PO SCH (09:03)
[2019-11-10] MEDS: VITAMIN D 1,000 INTERNATIONAL UNITS TABLET PO SCH (09:04)
[2019-11-10] MEDS: ISOSORBIDE MON. (IMDUR) 30 MG XR TAB PO SCH (09:04)
[2019-11-10] MEDS: CALCIUM CARBONATE 500 MG CHEW U/D PO SCH ×2 (09:05→22:32)
[2019-11-10] MEDS: CARVedilol 12.5 MG TAB PO SCH ×2 (09:05→22:33)
[2019-11-10] MEDS: **hydrALAZINE** 10 MG TAB PO SCH ×3 (09:05→22:33)
[2019-11-10] MEDS: AMIODARONE 200 MG TAB (PACERONE) PO SCH ×2 (09:05→22:33)
[2019-11-10] MEDS: SPIRONOLACTONE 25 MG TAB PO SCH (09:05)
[2019-11-10] MEDS: FUROSEMIDE 40 MG TAB PO SCH ×2 (09:06→22:33)
[2019-11-10 14:00] VITALS: BP 122/56
--- NOTE | 2019-11-10 15:29 | IPNPDOC ---
Text Note Date of Service The patient was seen on 11/10/19. NOTE Subjective: Patient continues to complain on the frequent bowel movements, and abdominal discomfort. Patient also states that she did not notice any blood in her stool in the morning Objective: VITAL SIGNS: Please see below. GENERAL APPEARANCE: Well-nourished, well-developed, not in apparent distress HEENT: Normocephalic, atraumatic. Mucous members moist and pink CARDIOVASCULAR: S1-S2 Radial pulses are intact. There is no lower extremity edema LUNGS: Diminished lung sounds ABDOMEN: Abdomen is soft and nontender, bowel sounds present MUSCULOSKELETAL: Range of motion is intact in all 4 extremities NEUROLOGICAL: Cranial nerves II-12 are grossly intact. Speech is not dysarthric Assessment and plan: Patient is 79 yr old with history of RA, paroxysmal A. fib, CAD, HTN, HFpEF, COPD, chronic O2 dependence, history of PE, pre-DM, GERD, and multiple abdominal surgeries, who is admitted with bloody diarrhea, nausea and vomiting. Patient was diagnosed with Norovirus and adenovirus infection. CT abdomen was done and showed cecum mass suspicious for colon cancer. Nausea, vomiting and bloody diarrhea Secondary to enteritis due to viral infection, Norovirus and adenovirus Patient was diagnosed with cecum mass suspicious for malignancy Dr. Verduzco will proceed with endoscopy on 11/11/19 Patient will need colonoscopy with biopsy after resolution of diarrhea RUBI Prerenal, most likely secondary to dehydration Continue IV fluid Continue to monitor Rheumatoid arthritis Continue home medications Atrial fibrillation Rate is under control Eliquis on hold Eliquis on hold due to blood in the stool Coronary artery diseases Aspirin on hold for now Continue atorvastatin, carvedilol, nitroglycerin CHF diastolic Not in acute exacerbation Continue home meds COPD Not in acute exacerbation Inhalers when necessary VS,Fishbone, I+O VS, Fishbone, I+O Laboratory Tests 11/09/19 16:05 11/10/19 06:00 Vital Signs Date Time Temp Pulse Resp B/P (MAP) Pulse Ox O2 Delivery O2 Flow Rate FiO2 11/10/19 14:00 97.4 87 18 122/56 (78) 92 Nasal Cannula 3.0 I&O- Last 24 Hours up to 6 AM 11/10/19 06:00 Intake Total 1330 ml Output Total 1 ml Balance 1329 ml JADON CONWAY DO Nov 10, 2019 15:29
[2019-11-10] MEDS ORDERED: ENTER DRUG NAME HERE (PATIENT'S OWN MED) PO SCH (21:00)
[2019-11-10] MEDS ORDERED: HumaLOG INSULIN (NovoLOG) PER UNIT SC SCH (21:00)
[2019-11-10 22:00] VITALS: BP 129/61
[2019-11-11 06:00] VITALS: BP 127/61
[2019-11-11 07:02] LABS: HEMOGLOBIN A1c 8.6 %
[2019-11-11] MEDS: HumaLOG INSULIN (NovoLOG) PER UNIT SC SCH ×4 (07:30→21:00)
[2019-11-11 08:28] LABS: HEMATOCRIT 31.8 % (36.0-47.0); HEMOGLOBIN 10.3 g/dl (12.0-15.5); MEAN CORPUSCULAR HEMOGLOBIN 28.5 pg (27.0-33.0); MEAN CORPUSCULAR HGB CONC 32.4 g/dl (32.0-36.5); MEAN CORPUSCULAR VOLUME 87.8 fl (80.0-96.0); PLATELET COUNT, AUTOMATED 213 10^3/uL (150-450); RED BLOOD COUNT 3.62 10^6/uL (4.00-5.40); WHITE BLOOD COUNT 8.2 10^3/uL (4.0-10.0)
[2019-11-11 08:39] LABS: CALCIUM LEVEL 7.7 MG/DL (8.8-10.2); CREATININE FOR GFR 1.22 MG/DL (0.55-1.30); MAGNESIUM LEVEL 2.1 MG/DL (1.8-2.4); POTASSIUM SERUM 3.5 MEQ/L (3.5-5.1)
[2019-11-11] MEDS: MULTIVITAMINS/MINERALS THERAP 1 TAB PO SCH (08:59)
[2019-11-11] MEDS: CALCIUM CARBONATE 500 MG CHEW U/D PO SCH ×2 (08:59→21:51)
[2019-11-11] MEDS: VITAMIN D 1,000 INTERNATIONAL UNITS TABLET PO SCH (08:59)
[2019-11-11] MEDS: ISOSORBIDE MON. (IMDUR) 30 MG XR TAB PO SCH (09:00)
[2019-11-11] MEDS: FUROSEMIDE 40 MG TAB PO SCH ×2 (09:00→21:50)
[2019-11-11] MEDS: **hydrALAZINE** 10 MG TAB PO SCH ×3 (09:00→21:51)
[2019-11-11] MEDS: CARVedilol 12.5 MG TAB PO SCH ×2 (09:01→21:50)
[2019-11-11] MEDS: SPIRONOLACTONE 25 MG TAB PO SCH (09:01)
[2019-11-11] MEDS: AMIODARONE 200 MG TAB (PACERONE) PO SCH ×2 (09:01→21:50)
[2019-11-11 14:00] VITALS: BP 126/59
--- NOTE | 2019-11-11 19:07 | IPNPDOC ---
Text Note Date of Service The patient was seen on 11/11/19. NOTE Subjective: Patient stated that she improved today, significant less bowel mov ements. No any acute events overnight Objective: VITAL SIGNS: Please see below. GENERAL APPEARANCE: Well-nourished, well-developed, not in apparent distress HEENT: Normocephalic, atraumatic. Mucous members moist and pink CARDIOVASCULAR: S1-S2 Radial pulses are intact. There is no lower extremity edema LUNGS: Diminished lung sounds ABDOMEN: Abdomen is soft and nontender, bowel sounds present MUSCULOSKELETAL: Range of motion is intact in all 4 extremities NEUROLOGICAL: Cranial nerves II-12 are grossly intact. Speech is not dysarthric Assessment and plan: Patient is 79 yr old with history of RA, paroxysmal A. fib, CAD, HTN, HFpEF, COPD, chronic O2 dependence, history of PE, pre-DM, GERD, and multiple abdominal surgeries, who is admitted with bloody diarrhea, nausea and vomiting. Patient was diagnosed with Norovirus and adenovirus infection. CT abdomen was done and showed cecum mass suspicious for colon cancer. Nausea, vomiting and bloody diarrhea Secondary to enteritis due to viral infection, Norovirus and adenovirus Patient was diagnosed with cecum mass suspicious for malignancy Dr. Verduzco will proceed with endoscopy and colonoscopy on 11/14/19 RUBI Prerenal, most likely secondary to dehydration Continue IV fluid Continue to monitor Rheumatoid arthritis Continue home medications Atrial fibrillation Rate is under control on hold Eliquis on hold due to blood in the stool Coronary artery diseases Aspirin on hold for now Continue atorvastatin, carvedilol, nitroglycerin CHF diastolic Not in acute exacerbation Continue home meds COPD Not in acute exacerbation Inhalers when necessary VS,Fishbone, I+O VS, Fishbone, I+O Laboratory Tests 11/11/19 06:08 Vital Signs Date Time Temp Pulse Resp B/P (MAP) Pulse Ox O2 Delivery O2 Flow Rate FiO2 11/11/19 14:00 97.1 82 15 126/59 (81) 93 Nasal Cannula 2.0 I&O- Last 24 Hours up to 6 AM 11/11/19 06:00 Intake Total 1220 ml Output Total 1600 ml Balance -380 ml JADON CONWAY DO Nov 11, 2019 19:07
[2019-11-11] MEDS: ASCORBIC ACID 500 MG TAB PO SCH (21:50)
[2019-11-11] MEDS: OMEPRAZOLE 20 MG CAP PO SCH (21:50)
[2019-11-11] MEDS: ATORVASTATIN 20 MG TAB PO SCH (21:50)
[2019-11-11] MEDS: MAGNESIUM OXIDE 400 MG TAB (MAG-OX) PO SCH (21:50)
[2019-11-11 22:00] VITALS: BP 128/62
[2019-11-12 06:00] VITALS: BP 126/68
[2019-11-12 06:50] LABS: HEMATOCRIT 33.3 % (36.0-47.0); HEMOGLOBIN 10.4 g/dl (12.0-15.5); MEAN CORPUSCULAR HEMOGLOBIN 27.8 pg (27.0-33.0); MEAN CORPUSCULAR HGB CONC 31.2 g/dl (32.0-36.5); PLATELET COUNT, AUTOMATED 206 10^3/uL (150-450); RED BLOOD COUNT 3.74 10^6/uL (4.00-5.40); WHITE BLOOD COUNT 7.1 10^3/uL (4.0-10.0)
[2019-11-12 07:03] LABS: CREATININE FOR GFR 1.31 MG/DL (0.55-1.30); GLOMERULAR FILTRATION RATE 41.5 (>32); MAGNESIUM LEVEL 1.9 MG/DL (1.8-2.4); POTASSIUM SERUM 3.4 MEQ/L (3.5-5.1)
[2019-11-12] MEDS: HumaLOG INSULIN (NovoLOG) PER UNIT SC SCH ×4 (07:28→21:00)
[2019-11-12] MEDS: CARVedilol 12.5 MG TAB PO SCH ×2 (07:57→22:18)
[2019-11-12] MEDS: MULTIVITAMINS/MINERALS THERAP 1 TAB PO SCH (07:57)
[2019-11-12] MEDS: ISOSORBIDE MON. (IMDUR) 30 MG XR TAB PO SCH (07:57)
[2019-11-12] MEDS: CALCIUM CARBONATE 500 MG CHEW U/D PO SCH ×2 (07:57→22:18)
[2019-11-12] MEDS: **hydrALAZINE** 10 MG TAB PO SCH ×3 (07:58→22:18)
[2019-11-12] MEDS: VITAMIN D 1,000 INTERNATIONAL UNITS TABLET PO SCH (07:58)
[2019-11-12] MEDS: AMIODARONE 200 MG TAB (PACERONE) PO SCH ×2 (07:58→22:19)
[2019-11-12] MEDS: SPIRONOLACTONE 25 MG TAB PO SCH (07:58)
[2019-11-12] MEDS: FUROSEMIDE 40 MG TAB PO SCH ×2 (07:58→22:19)
[2019-11-12] MEDS: ANORO ELLIPTA (PATIENT'S OWN MED) INH SCH (09:00)
[2019-11-12] MEDS: POTASSIUM CHLORIDE 10 MEQ SR TABLET PO SCH (09:36)
--- NOTE | 2019-11-12 13:18 | IPNPDOC ---
Text Note Date of Service The patient was seen on 11/12/19. NOTE Subjective: Patient continues to improve today, significant less bowel movemen ts, no visible blood in the stool. No any acute events overnight Objective: VITAL SIGNS: Please see below. GENERAL APPEARANCE: Well-nourished, well-developed, not in apparent distress HEENT: Normocephalic, atraumatic. Mucous members moist and pink CARDIOVASCULAR: S1-S2 Radial pulses are intact. There is no lower extremity edema LUNGS: Diminished lung sounds ABDOMEN: Abdomen is soft and nontender, bowel sounds present MUSCULOSKELETAL: Range of motion is intact in all 4 extremities NEUROLOGICAL: Cranial nerves II-12 are grossly intact. Speech is not dysarthric Assessment and plan: Patient is 79 yr old with history of RA, paroxysmal A. fib, CAD, HTN, HFpEF, COPD, chronic O2 dependence, history of PE, pre-DM, GERD, and multiple abdominal surgeries, who is admitted with bloody diarrhea, nausea and vomiting. Patient was diagnosed with Norovirus and adenovirus infection. CT abdomen was done and showed cecum mass suspicious for colon cancer. Dr. Verduzco will proceed with endoscopy and colonoscopy on 11/14/19 Nausea, vomiting and bloody diarrhea Resolved Secondary to enteritis due to viral infection, Norovirus and adenovirus Patient was diagnosed with cecum mass suspicious for malignancy Dr. Verduzco will proceed with endoscopy and colonoscopy on 11/14/19 RUBI Prerenal, most likely secondary to dehydration Continue IV fluid Continue to monitor Rheumatoid arthritis Continue home medications Atrial fibrillation Rate is under control on hold Eliquis on hold due to blood in the stool Coronary artery diseases Aspirin on hold for now Continue atorvastatin, carvedilol, nitroglycerin CHF diastolic Not in acute exacerbation Continue home meds COPD Not in acute exacerbation Inhalers when necessary VS,Fishbone, I+O VS, Fishbone, I+O Laboratory Tests 11/12/19 06:08 Vital Signs Date Time Temp Pulse Resp B/P (MAP) Pulse Ox O2 Delivery O2 Flow Rate FiO2 11/12/19 07:58 120/59 11/12/19 07:57 81 11/12/19 07:45 2.0 11/12/19 06:00 98.2 18 97 Nasal Cannula I&O- Last 24 Hours up to 6 AM 11/12/19 06:00 Intake Total 1400 ml Output Total 1700 ml Balance -300 ml DROZHZHIN,JADON DO Nov 12, 2019 13:18
[2019-11-12 14:00] VITALS: BP 138/66
[2019-11-12 22:00] VITALS: BP 135/69
[2019-11-12] MEDS: LEFLUNOMIDE 20 MG PO SCH (22:17)
[2019-11-12] MEDS: MAGNESIUM OXIDE 400 MG TAB (MAG-OX) PO SCH (22:20)
[2019-11-12] MEDS: ASCORBIC ACID 500 MG TAB PO SCH (22:20)
[2019-11-12] MEDS: ATORVASTATIN 20 MG TAB PO SCH (22:20)
[2019-11-12] MEDS: OMEPRAZOLE 20 MG CAP PO SCH (22:20)
[2019-11-13 06:00] VITALS: BP 144/66
[2019-11-13 07:01] LABS: HEMOGLOBIN 10.6 g/dl (12.0-15.5); MEAN CORPUSCULAR HEMOGLOBIN 27.6 pg (27.0-33.0); MEAN CORPUSCULAR HGB CONC 31.2 g/dl (32.0-36.5); MEAN CORPUSCULAR VOLUME 88.5 fl (80.0-96.0); PLATELET COUNT, AUTOMATED 215 10^3/uL (150-450); RED BLOOD COUNT 3.84 10^6/uL (4.00-5.40); WHITE BLOOD COUNT 6.9 10^3/uL (4.0-10.0)
[2019-11-13 07:28] LABS: CALCIUM LEVEL 8.4 MG/DL (8.8-10.2); CREATININE FOR GFR 1.43 MG/DL (0.55-1.30); GLOMERULAR FILTRATION RATE 37.5 (>32); MAGNESIUM LEVEL 2.2 MG/DL (1.8-2.4); POTASSIUM SERUM 3.4 MEQ/L (3.5-5.1)
[2019-11-13] MEDS: ANORO ELLIPTA (PATIENT'S OWN MED) INH SCH (09:00)
[2019-11-13] MEDS: HumaLOG INSULIN (NovoLOG) PER UNIT SC SCH ×4 (09:23→21:00)
[2019-11-13] MEDS: SPIRONOLACTONE 25 MG TAB PO SCH (09:24)
[2019-11-13] MEDS: CALCIUM CARBONATE 500 MG CHEW U/D PO SCH ×2 (09:24→22:04)
[2019-11-13] MEDS: MULTIVITAMINS/MINERALS THERAP 1 TAB PO SCH (09:24)
[2019-11-13] MEDS: POTASSIUM CHLORIDE 10 MEQ SR TABLET PO SCH (09:24)
[2019-11-13] MEDS: ISOSORBIDE MON. (IMDUR) 30 MG XR TAB PO SCH (09:25)
[2019-11-13] MEDS: FUROSEMIDE 40 MG TAB PO SCH ×2 (09:25→22:04)
[2019-11-13] MEDS: VITAMIN D 1,000 INTERNATIONAL UNITS TABLET PO SCH (09:25)
[2019-11-13] MEDS: **hydrALAZINE** 10 MG TAB PO SCH ×3 (09:25→22:05)
[2019-11-13] MEDS: CARVedilol 12.5 MG TAB PO SCH ×2 (09:26→22:06)
[2019-11-13] MEDS: AMIODARONE 200 MG TAB (PACERONE) PO SCH ×2 (09:26→22:04)
[2019-11-13 14:00] VITALS: BP 137/66
--- NOTE | 2019-11-13 15:29 | IPNPDOC ---
Text Note Date of Service The patient was seen on 11/13/19. NOTE Subjective: No any acute events overnight. Patient denies fever, chills, nausea, vomiting, diarrhea or dysuria Objective: VITAL SIGNS: Please see below. GENERAL APPEARANCE: Well-nourished, well-developed, not in apparent distress HEENT: Normocephalic, atraumatic. Mucous members moist and pink CARDIOVASCULAR: S1-S2 Radial pulses are intact. There is no lower extremity edema LUNGS: Diminished lung sounds ABDOMEN: Abdomen is soft and nontender, bowel sounds present MUSCULOSKELETAL: Range of motion is intact in all 4 extremities NEUROLOGICAL: Cranial nerves II-12 are grossly intact. Speech is not dysarthric Assessment and plan: Patient is 79 yr old with history of RA, paroxysmal A. fib, CAD, HTN, HFpEF, COPD, chronic O2 dependence, history of PE, pre-DM, GERD, and multiple abdominal surgeries, who is admitted with bloody diarrhea, nausea and vomiting. Patient was diagnosed with Norovirus and adenovirus infection. CT abdomen was done and showed cecum mass suspicious for colon cancer. Dr. Verduzco will proceed with endoscopy and colonoscopy on 11/14/19 Nausea, vomiting and bloody diarrhea Resolved Secondary to enteritis due to viral infection, Norovirus and adenovirus Patient was diagnosed with cecum mass suspicious for malignancy Dr. Verduzco will proceed with endoscopy and colonoscopy on 11/14/19 RUBI Prerenal, most likely secondary to dehydration Continue IV fluid Continue to monitor Rheumatoid arthritis Continue home medications Atrial fibrillation Rate is under control on hold Eliquis on hold due to blood in the stool Coronary artery diseases Aspirin on hold for now Continue atorvastatin, carvedilol, nitroglycerin CHF diastolic Not in acute exacerbation Continue home meds COPD Not in acute exacerbation Inhalers when necessary VS,Fishbone, I+O VS, Fishbone, I+O Laboratory Tests 11/13/19 06:32 Vital Signs Date Time Temp Pulse Resp B/P (MAP) Pulse Ox O2 Delivery O2 Flow Rate FiO2 11/13/19 14:00 97.5 83 18 137/66 (89) 96 Nasal Cannula 4.0 I&O- Last 24 Hours up to 6 AM 11/13/19 06:00 Intake Total 1240 ml Output Total 2100 ml Balance -860 ml JADON CONWAY DO Nov 13, 2019 15:29
[2019-11-13] MEDS ORDERED: BISACODYL 5 MG TAB PO ONE (16:00)
--- NOTE | 2019-11-13 17:36 | CR.PDOC ---
General Surgery Consultation Date of Consultation 11/13/19 History and Physical CONSULT REPORT FOR: hospitalist service REASON FOR CONSULTATION: diarrhea, abnormal CT HISTORY OF PRESENT ILLNESS: Patient is an 79-year-old female admitted in the hospital since there were 5 2020 with complaints of abdominal pain, nausea, vomiting and diarrhea for a few days prior to the admission and was found to have evidence for nerve virus infection on her stools. She was dehydrated and worsening of her kidney function that required IV fluid hydration. She had improved from her prior condition. As part of the workup of her complaints in the emergency room she had a CT abdomen and pelvis done. This demonstrated an abnormality in the cecum and ascending colon suspicious for possibility of a neoplasm. She is never had colonoscopy done. She denies any abnormal weight loss nor passage of bloody stools prior to this episode of diarrhea. She reports some problems with constipation for which she occasionally would take some laxatives. She also had some abnormality seen on the stomach but most likely this is more from under distention. She denies any epigastric discomfort, severe dyspeptic symptoms or gastroesophageal reflux disease. PAST MEDICAL HISTORY: 1. Rheumatoid arthritis 2. Paroxysmal atrial fibrillation for which he is on Eliquis. This has been held since admission. 3. First-degree AV block 4. Coronary artery disease status post stenting 5. Hypertension 6. COPD with pulmonary fibrosis, oxygen dependent at 2 L nasal cannula usually in the evening 7. History of pulmonary embolism 8. Prediabetes 9. GERD. PAST SURGICAL HISTORY: INCLUDES: 1. Status post resection of parathyroid adenoma 2. Status post open total hysterectomy 3. Status post open cholecystectomy 4. Bilateral cataract extractions. ALLERGIES: Please see below. HOME MEDICATIONS: Please see below. REVIEW OF SYSTEMS: GENERAL: Patient symptoms are a few days old. Prior to this denies any abnormal weight loss. HEENT: As prior cataract surgery. Denies any vision problems at this time here denies any hearing problems. NECK: Denies any neck pain CARDIOVASCULAR: Denies chest pain and palpitations. She has history of paroxysmal atrial fibrillation on Eliquis MUSCULOSKELETAL: She reports generalized muscle aches and pains on her back and extremities due to rheumatoid arthritis. She is on Enbrel. SKIN: Denies rash. NEUROLOGIC: Denies prior history of stroke. PSYCHIATRIC: Denies anxiety and depression. ENDOCRINE: Prior parathyroid hyperplasia status post parathyroidectomy. Calcium is come back to normal. HEMATOLOGY/ONCOLOGY: Denies bleeding or clotting disorder. She is on Eliquis. This was last taken on day of admission HEART: Patient denies any ongoing chest pains, orthopnea. PULMONARY: Patient on chronic O2 for shortness of breath on light activity. GASTROINTESTINAL: See HPI. GENITOURINARY: Denies dysuria, frequency, hematuria and nocturia. ENDOCRINE: Denies polydipsia, polyphagia, polyuria, heat or cold intolerance. INFECTIOUS: Denies any recent upper respiratory tract infection, UTI, need for use of antibiotics. NUTRITION: Reports fair appetite. PHYSICAL EXAMINATION: VITALS SIGNS: Please see below. GENERAL APPEARANCE: And the tenderness on palpation she looks fairly comfortable managing any acute distress. She appears her stated age. She is pleasant and cooperative.. SKIN: Warm and dry. HEENT: She is wearing a nasal cannula. Mild pale palpebral conjunctiva. Lips appear mildly dry. NECK: Supple, no thyromegaly. No obvious jugular venous distention. LUNGS: Clear to auscultation bilaterally. No wheezing appreciated. HEART: Regular heart rate and rhythm. ABDOMEN: Abdomen is slightly rounded, soft, minimally distended. Prior incisions from her cholecystectomy and hysterectomy noted. No gross a noticeable incisional herniation. Nontender on palpation. EXTREMITIES: No significant extremity edema or deformity ANCILLARIES: . LABORATORY DATA: Please see below. IMAGING STUDIES: CT abdomen and pelvis 1. There has been a cholecystectomy. 2. Thickened wall of the gastric cardia and fundus may be related to incomplete distention however infiltrating neoplasm should be excluded clinically. 3. There is bilateral adrenal hyperplasia. No follow-up necessary. 4. Abnormal thickening of the cecum and proximal ascending colon consistent with neoplasm with adenocarcinoma or lymphoma to be considered. There is pericolonic inflammation demonstrated surrounding the cecum and proximal right colon which may be related to lymphatic obstruction or occult diverticulitis. 5. Small cyst right kidney measures 9 mm. Hyperdense cyst right kidney measures 10 mm. Correlation with ultrasound suggested. 6. There has been a hysterectomy. IMPRESSION AND PLAN: diarrhea probably secondary to norovirus abnormal CT with thickening of the cecum and proximal ascending colon suspicious for malignancy. She has not have any prior colonoscopies done. She is willing to proceed with colonoscopy during this admission. There is also some thickening at the stomach which probably is more due to underdistention, I will add upper endoscopy to verify this. Patient will undergo bowel prep thursday evening, and will schedule him for thursday. Vital Signs Vital Signs Date Time Temp Pulse Resp B/P (MAP) Pulse Ox O2 Delivery O2 Flow Rate FiO2 11/13/19 16:47 132/65 11/13/19 14:00 97.5 83 18 96 Nasal Cannula 4.0 I&Os I&O- Last 24 Hours up to 6 AM 11/13/19 05:59 Intake Total 1240 ml Output Total 2100 ml Balance -860 ml Laboratory Data Labs 24H Laboratory Tests 2 11/12/19 20:25: Bedside Glucose (Misc Panel) 219H 11/13/19 06:32: Nucleated Red Blood Cells % (auto) 0.0, Anion Gap 5L, Glomerular Filtration Rate 37.5, Calcium Level 8.4L, Magnesium Level 2.2 11/13/19 11:23: Bedside Glucose (Misc Panel) 161H 11/13/19 16:30: Bedside Glucose (Misc Panel) 164H CBC/BMP Laboratory Tests 11/13/19 06:32 Microbiology Microbiology 11/09/19 Gastrointestinal Tract Panel (PCR) - Final, Complete Norovirus Adenovirus F Home Medications Scheduled Amiodarone HCl (Amiodarone HCl) 200 Mg Tablet, 200 MG PO BID, (Reported) Apixaban (Eliquis) 2.5 Mg Tablet, 2.5 MG PO BID, (Reported) Ascorbic Acid (Vitamin C) 500 Mg Tablet, 500 MG PO QHS, (Reported) Aspirin (Aspirin EC) 81 Mg Tablet.dr, 81 MG PO QHS, (Reported) Atorvastatin Calcium (Lipitor) 20 Mg Tab, 20 MG PO QHS, (Reported) Calcium Carbonate (Tums Ultra) 400 Mg Tab.chew, 1,000 MG PO BID, (Reported) Carvedilol (Carvedilol) 12.5 Mg Tablet, 12.5 MG PO BID, (Reported) Cholecalciferol (Vitamin D3) (Vitamin D3) 1,000 Unit Capsule, 1,000 UNIT PO DAILY, (Reported) Etanercept (Enbrel) 25 Mg Inj, 25 MG SC 2XWK, (Reported) THURSDAY AND THURSDAY Furosemide (Lasix) 40 Mg Tab, 40 MG PO BID, (Reported) Glimepiride (Glimepiride) 2 Mg Tab, 2 MG PO DAILY, (Reported) Glimepiride (Glimepiride) 2 Mg Tablet, 4 MG PO QPM, (Reported) DINNERTIME Hydralazine HCl (Hydralazine HCl) 10 Mg Tablet, 10 MG PO TID, (Reported) Isosorbide Mononitrate (Isosorbide Mononitrate ER) 30 Mg Tab, 30 MG PO DAILY, (Reported) Leflunomide (Leflunomide) 20 Mg Tab, 20 MG PO Q2D, (Reported) EVERY OTHER NIGHT Magnesium Oxide (Magnesium Oxide) 400 Mg Tablet, 400 MG PO QPM, (Reported) DINNERTIME Multivitamins (Thera M Plus Tablet) 1 Each Tablet, 1 TAB PO DAILY, (Reported) Omeprazole (Omeprazole) 20 Mg Capsule.dr, 20 MG PO QHS, (Reported) Potassium Chloride (Potassium Chloride) 20 Meq Tab.er.prt, 20 MEQ PO DAILY, (Reported) Sitagliptin (Januvia) 50 Mg Tab, 50 MG PO DAILY, (Reported) Spironolactone (Spironolactone) 25 Mg Tab, 25 MG PO DAILY, (Reported) Umeclidinium Brm/Vilanterol Tr (Anoro Ellipta 62.5-25 Mcg INH) 1 Each Blst.w.dev, 1 PUFF INH DAILY, (Reported) Scheduled PRN Acetaminophen (Pain Reliever) 650 Mg Tablet.er, 650 MG PO BID PRN for PAIN, (Reported) Albuterol Sulfate (Ventolin Hfa) 108 Mcg/Act Aer, 2 PUFF INH Q4H PRN for SHORTNE SS OF BREATH, (Reported) Diclofenac Sodium (Voltaren) 100 Gm Gel..gram., 2 GRAM TD TID PRN for PAIN, (Reported) APPLIED TO HANDS OR BACK NEEDED FOR PAIN Nitroglycerin (Nitrostat) 0.4 Mg Subl, 0.4 MG SL NITRO PRN for CHEST PAIN, (Reported) Tramadol HCl (Tramadol HCl) 50 Mg Tab, 50 MG PO BID PRN for PAIN, (Reported) Allergies Coded Allergies: No Known Allergies (Unverified , 06/24/19) JORDI ROONEY MD Nov 13, 2019 17:36
[2019-11-13] MEDS ORDERED: GOLYTELY SOLN 4000 ML BTL PO ONE (18:00)
[2019-11-13 22:00] VITALS: BP 128/69
[2019-11-13] MEDS: ATORVASTATIN 20 MG TAB PO SCH (22:04)
[2019-11-13] MEDS: MAGNESIUM OXIDE 400 MG TAB (MAG-OX) PO SCH (22:06)
[2019-11-13] MEDS: ASCORBIC ACID 500 MG TAB PO SCH (22:06)
[2019-11-13] MEDS: OMEPRAZOLE 20 MG CAP PO SCH (22:06)
[2019-11-14 06:00] VITALS: BP 134/75
[2019-11-14] MEDS ORDERED: MAGNESIUM CITRATE 300 ML BTL PO ONE (06:00)
[2019-11-14 06:16] LABS: HEMATOCRIT 34.9 % (36.0-47.0); HEMOGLOBIN 10.9 g/dl (12.0-15.5); MEAN CORPUSCULAR HEMOGLOBIN 27.6 pg (27.0-33.0); MEAN CORPUSCULAR HGB CONC 31.2 g/dl (32.0-36.5); MEAN CORPUSCULAR VOLUME 88.4 fl (80.0-96.0); PLATELET COUNT, AUTOMATED 222 10^3/uL (150-450); RED BLOOD COUNT 3.95 10^6/uL (4.00-5.40); WHITE BLOOD COUNT 5.8 10^3/uL (4.0-10.0)
[2019-11-14 06:32] LABS: CALCIUM LEVEL 8.6 MG/DL (8.8-10.2); CREATININE FOR GFR 1.29 MG/DL (0.55-1.30); GLOMERULAR FILTRATION RATE 42.2 (>32); MAGNESIUM LEVEL 2.1 MG/DL (1.8-2.4); POTASSIUM SERUM 3.4 MEQ/L (3.5-5.1)
[2019-11-14] MEDS: HumaLOG INSULIN (NovoLOG) PER UNIT SC SCH ×4 (07:30→22:08)
[2019-11-14] MEDS: ANORO ELLIPTA (PATIENT'S OWN MED) INH SCH (09:00)
[2019-11-14] MEDS: ISOSORBIDE MON. (IMDUR) 30 MG XR TAB PO SCH (10:34)
[2019-11-14] MEDS: **hydrALAZINE** 10 MG TAB PO SCH ×3 (10:34→22:07)
[2019-11-14] MEDS: CARVedilol 12.5 MG TAB PO SCH ×2 (10:35→22:07)
[2019-11-14] MEDS: AMIODARONE 200 MG TAB (PACERONE) PO SCH ×2 (10:35→22:07)
--- NOTE | 2019-11-14 13:47 | IPNPDOC ---
Subjective Date Seen The patient was seen on 11/14/19. Subjective Chief Complaint/HPI Pt is an 79 year old female who presented to the ED due to N/V and bloody diarrhea for several days. She also reported lower abdominal pain relieved by bowel movement when she reported to the ED. Pt reported weight loss and night sweats during her admission. This morning, she is seen laying in bed. Pt stated that she is a little anxious about the upcoming EGD and colonoscopy but is most looking forward to being able to eat after her procedure. Objective Physical Examination General Exam: Positive: Alert, Cooperative, No Acute Distress Eye Exam: Positive: Conjunctiva & lids normal, EOMI; Negative: Sclera icteric ENT Exam: Positive: Atraumatic, Mucous membr. moist/pink, Pharynx Normal Neck Exam: Positive: Supple; Negative: JVD, thyromegaly Chest Exam: Positive: Clear to auscultation, Normal air movement Heart Exam: Positive: Rate Normal, Regular Rhythm, Other (distant HS ) Telemetry: Positive: No significant arrhythmia Abdomen Exam: Positive: Normal bowel sounds, Soft; Negative: Tenderness Female Exam: Positive: Odor Extremity Exam: Negative: Clubbing, Cyanosis, Edema Skin Exam: Positive: Nl turgor and temperature Neuro Exam: Positive: Normal Speech Psych Exam: Positive: Mood NL Assessment /Plan Assessment Pt is an 79 year old female who presented to the ED due to N/V and bloody diarrhea for several days. She also reported lower abdominal pain relieved by bowel movement when she reported to the ED. Pt reported weight loss and night sweats during her admission. Pt has a PMHx which includes: CAD, HTN, HFpEF, paroxysmal A. fib, COPD, chronic O2 dependence, history of RA, history of PE, pre-DM, GERD, and multiple abdominal surgeries. Pt diagnosed with Norovirus and Adenovirus, symptoms of both have resolved. CT ABD/PEL W/PO CONTRAST ONLY IMPRESSION: 1. There has been a cholecystectomy. 2. Thickened wall of the gastric cardia and fundus may be related to incomplete distention however infiltrating neoplasm should be excluded clinically. 3. There is bilateral adrenal hyperplasia. No follow-up necessary. 4. Abnormal thickening of the cecum and proximal ascending colon consistent with neoplasm with adenocarcinoma or lymphoma to be considered. There is pericolonic inflammation demonstrated surrounding the cecum and proximal right colon which may be related to lymphatic obstruction or occult diverticulitis. 5. Small cyst right kidney measures 9 mm. Hyperdense cyst right kidney measures 10 mm. Correlation with ultrasound suggested. 6. There has been a hysterectomy. Cecum mass, suspicious for malignancy - Colonoscopy per Dr. Verduzco today - EGD per Dr. Verduzco due to thickening at the stomach Paroxysmal A-fib - Currently rate controlled; continue Amiodarone - Eliquis on hold 2/2 blood in the stool - Resume after procedures today based on recs HTN with HfpEf - Continue Coreg, Hydralazine, Imdur, Lasix, Spironolactone - VS stable, no evidence of volume overload COPD with O2 dependence - continue home inhalers - O2 NC at 2L CAD - Eliquis and ASA currently on hold, resume post procedure per recs - continue Lipitor, nitro GERD - continue with PPI and Tums from home - EGD scheduled today RA - continue home medication RUBI - now resolved Adenovirus and norovirus - currently asymptomatic Plan/VTE VTE Prophylaxis Ordered?: No (bloody stool) VS, I&O, 24H, Fishbone Vital Signs/I&O Vital Signs Date Time Temp Pulse Resp B/P (MAP) Pulse Ox O2 Delivery O2 Flow Rate FiO2 11/14/19 10:35 88 11/14/19 06:00 97.2 20 134/75 (94) 96 Nasal Cannula 2.0 I&O- Last 24 Hours up to 6 AM 11/14/19 05:59 Intake Total 1440 ml Output Total 1875 ml Balance -435 ml Laboratory Data 24H LABS Laboratory Tests 2 11/13/19 16:30: Bedside Glucose (Misc Panel) 164H 11/13/19 20:47: Bedside Glucose (Misc Panel) 160H 11/14/19 05:50: Nucleated Red Blood Cells % (auto) 0.0, Anion Gap 6L, Glomerular Filtration Rate 42.2, Calcium Level 8.6L, Magnesium Level 2.1 11/14/19 12:21: Bedside Glucose (Misc Panel) 184H CBC/BMP Laboratory Tests 11/14/19 05:50 Microbiology Microbiology 11/09/19 Gastrointestinal Tract Panel (PCR) - Final, Complete Norovirus Adenovirus F 40/41 CAROLINA GALVIN PA-C Nov 14, 2019 13:47
[2019-11-14 14:00] VITALS: BP 124/64
[2019-11-14] MEDS ORDERED: LIDOCAINE 2% INJ 100 MG/5 ML SDV (FOR ANES.) As Ordered ONE (14:22)
[2019-11-14] MEDS ORDERED: propofoL 200 MG/20 ML VIAL As Ordered ONE (14:22)
--- NOTE | 2019-11-14 14:52 | ROOR ---
Patient Name: Dixie Valverde Procedure Date: 11/14/2019 2:13 PM Date of : 1940 Age: 79 Room: [facility] Gender: Female Note Status: Finalized Procedure: Upper GI endoscopy Indications: Lower abdominal pain, Abnormal CT of the GI tract Providers: Gabe Verduzco MD Referring MD: FAN HENDRIX JR, MD Requesting Provider: Medicines: Monitored Anesthesia Care Complications: No immediate complications. Procedure: Pre-Anesthesia Assessment: - Prior to the procedure, a History and Physical was performed, and patient medications and allergies were reviewed. The patient is competent. The risks and benefits of the procedure and the sedation options and risks were discussed with the patient. All questions were answered and informed consent was obtained. Patient identification and proposed procedure were verified by the physician, the nurse and the merchandising lead in the endoscopy suite. Mental Status Examination: alert and oriented. Airway Examination: normal oropharyngeal airway and neck mobility. Respiratory Examination: clear to auscultation. CV Examination: normal. Prophylactic Antibiotics: The patient does not require prophylactic antibiotics. Prior Anticoagulants: The patient has taken Eliquis (apixaban), last dose was 5 days prior to procedure. ASA Grade Assessment: III - A patient with severe systemic disease. After reviewing the risks and benefits, the patient was deemed in satisfactory condition to undergo the procedure. The anesthesia plan was to use monitored anesthesia care (MAC). Immediately prior to administration of medications, the patient was re-assessed for adequacy to receive sedatives. The heart rate, respiratory rate, oxygen saturations, blood pressure, adequacy of pulmonary ventilation, and response to care were monitored throughout the procedure. The physical status of the patient was re-assessed after the procedure. The Endoscope was introduced through the mouth, and advanced to the second part of duodenum. The upper GI endoscopy was accomplished without difficulty. The patient tolerated the procedure well. Findings: The examined esophagus was normal. The Z-line was regular and was found 38 cm from the incisors. A small hiatal hernia was present. Multiple 1 to 5 mm pedunculated polyps with no bleeding and no stigmata of recent bleeding were found in the gastric fundus and in the gastric body. Striped mildly erythematous mucosa without bleeding was found in the gastric antrum. The duodenal bulb, first portion of the duodenum and second portion of the duodenum were normal. Impression: - Normal esophagus. - Z-line regular, 38 cm from the incisors. - Small hiatal hernia. - Multiple gastric polyps. - Erythematous mucosa in the antrum. - Normal duodenal bulb, first portion of the duodenum and second portion of the duodenum. - No specimens collected. Recommendation: - Admit the patient to hospital [facility] for ongoing care. Gabe Verduzco MD Gabe Verduzco MD 11/14/2019 2:51:57 PM Electronically signed by Gabe Verduzco MD Number of Addenda: 0 Note Initiated On: 11/14/2019 2:13 PM Estimated Blood Loss: Estimated blood loss: none.
--- NOTE | 2019-11-14 14:58 | ROOR ---
Patient Name: Dixie Valverde Procedure Date: 11/14/2019 2:14 PM Date of : 1940 Age: 79 Room: [facility], [facility] Gender: Female Note Status: Finalized Procedure: Colonoscopy Indications: Clinically significant diarrhea of unexplained origin, Abnormal CT of the GI tract Providers: Gabe Verduzco MD Referring MD: FAN HENDRIX JR, MD Requesting Provider: Medicines: Monitored Anesthesia Care Complications: No immediate complications. Procedure: Pre-Anesthesia Assessment: - Prior to the procedure, a History and Physical was performed, and patient medications and allergies were reviewed. The patient is competent. The risks and benefits of the procedure and the sedation options and risks were discussed with the patient. All questions were answered and informed consent was obtained. Patient identification and proposed procedure were verified by the physician, the nurse and the retort engineer in the endoscopy suite. Mental Status Examination: normal. Airway Examination: normal oropharyngeal airway and neck mobility. Respiratory Examination: clear to auscultation. CV Examination: normal. Prophylactic Antibiotics: The patient does not require prophylactic antibiotics. Prior Anticoagulants: The patient has taken Eliquis (apixaban), last dose was 5 days prior to procedure. ASA Grade Assessment: III - A patient with severe systemic disease. After reviewing the risks and benefits, the patient was deemed in satisfactory condition to undergo the procedure. The anesthesia plan was to use monitored anesthesia care (MAC). Immediately prior to administration of medications, the patient was re-assessed for adequacy to receive sedatives. The heart rate, respiratory rate, oxygen saturations, blood pressure, adequacy of pulmonary ventilation, and response to care were monitored throughout the procedure. The physical status of the patient was re-assessed after the procedure. The Colonoscope was introduced through the anus and advanced to the cecum, identified by appendiceal orifice and ileocecal valve. The colonoscopy was performed without difficulty. The patient tolerated the procedure well. The quality of the bowel preparation was adequate. Findings: The perianal and digital rectal examinations were normal. Multiple medium-mouthed diverticula were found in the sigmoid colon. A segmental area of moderately nodular mucosa was found in the ascending colon and in the cecum. Biopsies were taken with a cold forceps for histology. Estimated blood loss was minimal. Impression: - Diverticulosis in the sigmoid colon. - Abnormal mucosa in the ascending colon and in the cecum. Biopsied. - At the level of cecum starting above the ileocecal valve to about 5-7 cms at the ascending colon, patchy, nodular inflamed mucosa with associated chronic appearing inflammation, pseudomembrane probably inflammatory in nature and unlikely infectious is noted and biopsied. Recommendation: - Admit the patient to hospital [facility] for ongoing care. - Await pathology results. Gabe Verduzco MD Gabe Verduzco MD 11/14/2019 2:58:07 PM Electronically signed by Gabe Verduzco MD Number of Addenda: 0 Note Initiated On: 11/14/2019 2:14 PM Estimated Blood Loss: Estimated blood loss was minimal.
[2019-11-14 15:00] VITALS: BP 138/66
[2019-11-14 16:00] VITALS: BP 124/64
[2019-11-14 17:00] VITALS: BP 120/60
[2019-11-14 22:00] VITALS: BP 127/66
[2019-11-14] MEDS: MAGNESIUM OXIDE 400 MG TAB (MAG-OX) PO SCH (22:07)
[2019-11-14] MEDS: ATORVASTATIN 20 MG TAB PO SCH (22:07)
[2019-11-14] MEDS: OMEPRAZOLE 20 MG CAP PO SCH (22:08)
[2019-11-14] MEDS: LEFLUNOMIDE 20 MG PO SCH (22:08)
[2019-11-14] MEDS: ASCORBIC ACID 500 MG TAB PO SCH (22:08)
[2019-11-15 02:00] VITALS: BP 127/57
[2019-11-15 06:00] VITALS: BP 115/60
[2019-11-15 06:52] LABS: HEMOGLOBIN 10.6 g/dl (12.0-15.5); MEAN CORPUSCULAR HEMOGLOBIN 27.5 pg (27.0-33.0); MEAN CORPUSCULAR HGB CONC 31.2 g/dl (32.0-36.5); MEAN CORPUSCULAR VOLUME 88.3 fl (80.0-96.0); PLATELET COUNT, AUTOMATED 239 10^3/uL (150-450); RED BLOOD COUNT 3.85 10^6/uL (4.00-5.40); WHITE BLOOD COUNT 5.9 10^3/uL (4.0-10.0)
[2019-11-15 07:15] LABS: CALCIUM LEVEL 8.5 MG/DL (8.8-10.2); CREATININE FOR GFR 1.22 MG/DL (0.55-1.30); MAGNESIUM LEVEL 2.6 MG/DL (1.8-2.4); POTASSIUM SERUM 3.4 MEQ/L (3.5-5.1)
[2019-11-15] MEDS ORDERED: GLIMEPIRIDE 2 MG TAB PO SCH ×2 (08:00→18:00)
--- NOTE | 2019-11-15 08:28 | IPNPDOC ---
Text Note Date of Service The patient was seen on 11/15/19. NOTE Upper endoscopy and colonoscopy done yesterday did not reveal any gross malig humera. Possible inflammatory mucosal disease on the cecum and ascending colon (biopsy results pending). OK to resume eliquis. Follow up with me in one week from discharge to discuss pathology. VS,Fishbone, I+O VS, Fishbone, I+O Laboratory Tests 11/15/19 06:06 Vital Signs Date Time Temp Pulse Resp B/P (MAP) Pulse Ox O2 Delivery O2 Flow Rate FiO2 11/15/19 06:00 97.8 78 18 115/60 (78) 95 Nasal Cannula 3.0 I&O- Last 24 Hours up to 6 AM 11/15/19 05:59 Intake Total 1735 ml Output Total 300 ml Balance 1435 ml JORDI ROONEY MD Nov 15, 2019 08:28
[2019-11-15] MEDS ORDERED: APIXABAN 2.5 MG TAB (ELIQUIS) PO SCH (09:00)
[2019-11-15] MEDS ORDERED: SITagliptin 50 MG TAB (JANUVIA) PO SCH (09:00)
[2019-11-15 10:00] VITALS: BP 116/62
[2019-11-15] MEDS ORDERED: POTASSIUM CHLORIDE 10 MEQ SR TABLET PO ONE (10:00)
[2019-11-15] MEDS: CALCIUM CARBONATE 500 MG CHEW U/D PO SCH (10:23)
[2019-11-15 10:24] VITALS: BP 128/74
[2019-11-15] MEDS: CARVedilol 12.5 MG TAB PO SCH (10:24)
[2019-11-15] MEDS: SPIRONOLACTONE 25 MG TAB PO SCH (10:24)
[2019-11-15] MEDS: ISOSORBIDE MON. (IMDUR) 30 MG XR TAB PO SCH (10:24)
[2019-11-15] MEDS: MULTIVITAMINS/MINERALS THERAP 1 TAB PO SCH (10:25)
[2019-11-15] MEDS: AMIODARONE 200 MG TAB (PACERONE) PO SCH (10:25)
[2019-11-15] MEDS: POTASSIUM CHLORIDE 10 MEQ SR TABLET PO SCH (10:25)
[2019-11-15] MEDS: **hydrALAZINE** 10 MG TAB PO SCH (10:25)
[2019-11-15] MEDS: VITAMIN D 1,000 INTERNATIONAL UNITS TABLET PO SCH (10:25)
[2019-11-15] MEDS: FUROSEMIDE 40 MG TAB PO SCH (10:26)
[2019-11-15] MEDS: ANORO ELLIPTA (PATIENT'S OWN MED) INH SCH (10:27)
[2019-11-15] MEDS: HumaLOG INSULIN (NovoLOG) PER UNIT SC SCH (10:28)
--- NOTE | 2019-11-15 12:50 | DS.PDOC ---
Discharge Summary General Date of Admission Nov 09, 2019 at 23:53 Date of Discharge 11/15/2019 Discharge Summary PROCEDURES PERFORMED DURING STAY: EGD and colonoscopy 11/14/19. ADMITTING DIAGNOSES: 1. Nausea, vomiting and bloody diarrhea 2. GARETT 3. Kidney cyst 4. Rheumatoid arthritis 5. Paroxysmal Atrial fibrillation 6. Chronic CAD 7. Chronic hypertension/HFpEF 8. COPD/pulmonary fibrosis 9. Prediabetes 10. GERD DISCHARGE DIAGNOSES: 1. Norovirus and Adenovirus Infections 2. GARETT 3. Kidney cyst 4. Rheumatoid arthritis 5. Paroxysmal Atrial fibrillation 6. Chronic CAD 7. Chronic hypertension/HFpEF 8. COPD/pulmonary fibrosis 9. Prediabetes 10. GERD COMPLICATIONS/CHIEF COMPLAINT: Cecum Mass, Garett. HISTORY OF PRESENT ILLNESS: " This is an 79-year-old female presents with complaints of nausea, nonbloody vomiting and bloody diarrhea for a few days. Today she developed 4 out of 10 lower abdominal pain that improved after she had a bowel movement. Therefore, she decided to come to the ER for evaluation. She cannot identify any factors that made the abdominal pain worse. She denies having fevers or chills, but reports feeling cold all the time, has lost weight and sweats at night." HOSPITAL COURSE: Pt admitted due to the symptoms outlined above and provided supportive care secondary to viral diseases. MRI of the abdomen showed what appeared to be mass in the cecum suspicious for malignancy. Eliquis and ASA placed on hold on admission d/t planned scope per general surgery. Renal USG completed due to GARETT showed 2 small cysts as noted below. Pt acute Sx resolved within 3/4 days. EGD and colonoscopy per Dr. Verduzco completed 11/14/19 with Bx. He did not visualize any gross signs of malignancy and will follow-up with the pt in 1 week with pathology results. Ms. Valverde had been asymptomatic for at least 3 days prior to discharge and was ready to go home when seen this morning. DISCHARGE MEDICATIONS: Please see below. ALLERGIES: Please see below. PHYSICAL EXAMINATION ON DISCHARGE: VITAL SIGNS: Please see below. General Exam: Positive: Alert, Cooperative, No Acute Distress Eye Exam: Positive: Conjunctiva & lids normal, EOMI; Negative: Sclera icteric ENT Exam: Positive: Atraumatic, Mucous membr. moist/pink, Pharynx Normal Neck Exam: Positive: Supple; Negative: JVD, thyromegaly Chest Exam: Positive: Clear to auscultation, Normal air movement Heart Exam: Positive: Rate Normal, Regular Rhythm, Other (distant HS ) Telemetry: Positive: No significant arrhythmia Abdomen Exam: Positive: Normal bowel sounds, Soft; Negative: Tenderness Extremity Exam: Negative: Clubbing, Cyanosis, Edema Skin Exam: Positive: Nl turgor and temperature Neuro Exam: Positive: Normal Speech Psych Exam: Positive: Mood NL LABORATORY DATA: Please see below. IMAGING: RENAL US Impression: Increased renal cortical echogenicity bilaterally, compatible with medical renal disease. There is a single small cyst in each kidney. CT ABD/PEL W/PO CONTRAST ONLY IMPRESSION: 1. There has been a cholecystectomy. 2. Thickened wall of the gastric cardia and fundus may be related to incomplete distention however infiltrating neoplasm should be excluded clinically. 3. There is bilateral adrenal hyperplasia. No follow-up necessary. 4. Abnormal thickening of the cecum and proximal ascending colon consistent with neoplasm with adenocarcinoma or lymphoma to be considered. There is pericolonic inflammation demonstrated surrounding the cecum and proximal right colon which may be related to lymphatic obstruction or occult diverticulitis. 5. Small cyst right kidney measures 9 mm. Hyperdense cyst right kidney measures 10 mm. Correlation with ultrasound suggested. 6. There has been a hysterectomy. ACTIVITY: [As tolerated]. DIET: As tolerated DISCHARGE PLAN: Discharge home with GI f/u for pathology 1 week. PCP f/u in 1 week. Eliquis resumed. DISPOSITION: Stable DISCHARGE INSTRUCTIONS: 1. Discharge home with GI f/u for pathology 1 week. PCP f/u in 1 week. Eliquis resumed. ITEMS TO FOLLOWUP ON ON OUTPATIENT: 1. as above DISCHARGE CONDITION: [Stable]. TIME SPENT ON DISCHARGE: 33 minutes. Vital Signs/I&Os Vital Signs Date Time Temp Pulse Resp B/P (MAP) Pulse Ox O2 Delivery O2 Flow Rate FiO2 11/15/19 10:30 2.0 11/15/19 10:24 128/74 11/15/19 10:24 83 11/15/19 10:00 98.2 18 95 Nasal Cannula I&O- Last 24 Hours up to 6 AM 11/15/19 06:00 Intake Total 1735 ml Output Total 300 ml Balance 1435 ml Laboratory Data Labs 24H Laboratory Tests 2 11/14/19 12:21: Bedside Glucose (Misc Panel) 184H 11/14/19 17:07: Bedside Glucose (Misc Panel) 149H 11/14/19 21:18: Bedside Glucose (Misc Panel) 255H 11/15/19 06:06: Nucleated Red Blood Cells % (auto) 0.0, Anion Gap 9, Glomerular Filtration Rate 45.0, Calcium Level 8.5L, Magnesium Level 2.6H CBC/BMP Laboratory Tests 11/15/19 06:06 FSBS Laboratory Tests Test 11/14/19 12:21 11/14/19 17:07 11/14/19 21:18 Range/Units Bedside Glucose (Misc Panel) 184 149 255 83-110 MG/DL Microbiology Microbiology 11/09/19 Gastrointestinal Tract Panel (PCR) - Final, Complete Norovirus Adenovirus F Discharge Medications Scheduled Amiodarone HCl (Amiodarone HCl) 200 Mg Tablet, 200 MG PO BID, (Reported) Apixaban (Eliquis) 2.5 Mg Tablet, 2.5 MG PO BID, (Reported) Ascorbic Acid (Vitamin C) 500 Mg Tablet, 500 MG PO QHS, (Reported) Aspirin (Aspirin EC) 81 Mg Tablet.dr, 81 MG PO QHS, (Reported) Atorvastatin Calcium (Lipitor) 20 Mg Tab, 20 MG PO QHS, (Reported) Calcium Carbonate (Tums Ultra) 400 Mg Tab.chew, 1,000 MG PO BID, (Reported) Carvedilol (Carvedilol) 12.5 Mg Tablet, 12.5 MG PO BID, (Reported) Cholecalciferol (Vitamin D3) (Vitamin D3) 1,000 Unit Capsule, 1,000 UNIT PO DAILY, (Reported) Etanercept (Enbrel) 25 Mg Inj, 25 MG SC 2XWK, (Reported) THURSDAY AND THURSDAY Furosemide (Lasix) 40 Mg Tab, 40 MG PO BID, (Reported) Glimepiride (Glimepiride) 2 Mg Tab, 2 MG PO DAILY, (Reported) Glimepiride (Glimepiride) 2 Mg Tablet, 4 MG PO QPM, (Reported) DINNERTIME Hydralazine HCl (Hydralazine HCl) 10 Mg Tablet, 10 MG PO TID, (Reported) Isosorbide Mononitrate (Isosorbide Mononitrate ER) 30 Mg Tab, 30 MG PO DAILY, (Reported) Leflunomide (Leflunomide) 20 Mg Tab, 20 MG PO Q2D, (Reported) EVERY OTHER NIGHT Magnesium Oxide (Magnesium Oxide) 400 Mg Tablet, 400 MG PO QPM, (Reported) DINNERTIME Multivitamins (Thera M Plus Tablet) 1 Each Tablet, 1 TAB PO DAILY, (Reported) Omeprazole (Omeprazole) 20 Mg Capsule.dr, 20 MG PO QHS, (Reported) Potassium Chloride (Potassium Chloride) 20 Meq Tab.er.prt, 20 MEQ PO DAILY, (Reported) Sitagliptin (Januvia) 50 Mg Tab, 50 MG PO DAILY, (Reported) Spironolactone (Spironolactone) 25 Mg Tab, 25 MG PO DAILY, (Reported) Umeclidinium Brm/Vilanterol Tr (Anoro Ellipta 62.5-25 Mcg INH) 1 Each Blst.w.dev, 1 PUFF INH DAILY, (Reported) Scheduled PRN Acetaminophen (Pain Reliever) 650 Mg Tablet.er, 650 MG PO BID PRN for PAIN, (Reported) Albuterol Sulfate (Ventolin Hfa) 108 Mcg/Act Aer, 2 PUFF INH Q4H PRN for SHORTNESS OF BREATH, (Reported) Diclofenac Sodium (Voltaren) 100 Gm Gel..gram., 2 GRAM TD TID PRN for PAIN, (Reported) APPLIED TO HANDS OR BACK NEEDED FOR PAIN Nitroglycerin (Nitrostat) 0.4 Mg Subl, 0.4 MG SL NITRO PRN for CHEST PAIN, (Reported) Tramadol HCl (Tramadol HCl) 50 Mg Tab, 50 MG PO BID PRN for PAIN, (Reported) Allergies Coded Allergies: No Known Allergies (Unverified , 06/24/19) CAROLINA GALVIN PA-C Nov 15, 2019 12:50
== END 2019-11-15 12:36 | disposition home or self-care (01) | DRG 392 ==
LOC: M ED 15:34 → M ED INP 23:53 → ENRESERVTM 11-10 00:13 → ENRESERVDT 11-10 00:13 → M MSPAV 11-10 02:01
PROVIDERS: ADMIT Internal Medicine; ATTEND Internal Medicine Nephrology
PROC: 0DBK8ZX Excision of Ascending Colon, Via Natural or Artificial Opening Endoscopic, Diagnostic (ICD-10-PCS; 2019-11-14)
PROC: 0DBH8ZX Excision of Cecum, Via Natural or Artificial Opening Endoscopic, Diagnostic (ICD-10-PCS; 2019-11-14)
PROC: 0DJ08ZZ Inspection of Upper Intestinal Tract, Via Natural or Artificial Opening Endoscopic (ICD-10-PCS; principal; 2019-11-14 13:30)
DX: A08.11 Acute gastroenteropathy due to Norwalk agent (principal); I50.30 Unspecified diastolic (congestive) heart failure; K92.1 Melena; N17.9 Acute kidney failure, unspecified; M06.9 Rheumatoid arthritis, unspecified; I48.0 Paroxysmal atrial fibrillation; I44.0 Atrioventricular block, first degree; Z98.61 Coronary angioplasty status; I25.10 Atherosclerotic heart disease of native coronary artery without angina pectoris; I11.0 Hypertensive heart disease with heart failure; J44.9 Chronic obstructive pulmonary disease, unspecified; J84.10 Pulmonary fibrosis, unspecified; Z99.81 Dependence on supplemental oxygen; Z86.711 Personal history of pulmonary embolism; R73.03 Prediabetes; K21.9 Gastro-esophageal reflux disease without esophagitis; D35.1 Benign neoplasm of parathyroid gland; Z90.79 Acquired absence of other genital organ(s); Z90.49 Acquired absence of other specified parts of digestive tract; Z98.41 Cataract extraction status, right eye; Z98.42 Cataract extraction status, left eye; Z87.891 Personal history of nicotine dependence; N28.1 Cyst of kidney, acquired; Z79.82 Long term (current) use of aspirin; Z79.01 Long term (current) use of anticoagulants; Z79.899 Other long term (current) drug therapy; E86.0 Dehydration; A08.2 Adenoviral enteritis; D12.0 Benign neoplasm of cecum

== ENCOUNTER → 2019-11-09 | Outpatient (CLI) | payer MEDICARE ==
[~2019-11-09] MED LIST changes: +ACET650T3 PO; +AMIO100T5 PO; +AMIO200T PO; +ANOR1AER PO; +C 50TAB PO; +CARV12.5 PO; -GLIM2TAB2 PO; +GLIM2TAB4 PO; +MAGN200T PO; +MAGN400T2 PO; +MULTCAP PO; +TUMS1000 PO; +VITA100054 PO; +VITA500C24 PO; +VITMTA PO; +VOLT1GEL15 TD
--- NOTE | 2019-11-09 15:01 | REP ---
Acute abdominal series three views including PA chest and supine upright abdomen: PA chest: Comparison is 02/01/2010. The lung ji are clear. Cardiac size is normal. The levy, mediastinum, skeletal structures are unremarkable. There is no free subdiaphragmatic air. Impression: Negative PA chest. Abdomen, supine upright views: There are no comparisons. There are multiple air-fluid levels within nondistended bowel loops. The bowel gas pattern is nonspecific and could represent ileus or impending obstruction. There are no calcifications. There is scoliosis convex right at the thoracolumbar junction. Skeletal structures are otherwise unremarkable. There are surgical clips in the right upper quadrant. Impression: Nonspecific bowel gas pattern, ileus versus impending obstruction. Electronically Signed by Subhash Bennett MD 11/09/2019 02:52 P
[2019-11-09 17:35] LABS: BASO % 0.7 % (0.0-1.0); EOS # 0.2 10^3/uL (0.0-0.5); EOS % 3.7 % (0.0-3.0); HEMATOCRIT 40.1 % (36.0-47.0); HEMOGLOBIN 12.6 g/dl (12.0-15.5); LYMPH # 0.8 10^3/uL (1.5-5.0); LYMPH % 13.9 % (24.0-44.0); MEAN CORPUSCULAR HEMOGLOBIN 28.6 pg (27.0-33.0); MEAN CORPUSCULAR HGB CONC 31.4 g/dl (32.0-36.5); MEAN CORPUSCULAR VOLUME 91.1 fl (80.0-96.0); MONO # 0.8 10^3/uL (0.0-0.8); MONO % 13.6 % (0.0-5.0); NEUTROPHILS % 67.4 % (36.0-66.0); PLATELET COUNT, AUTOMATED 290 10^3/uL (150-450)
[2019-11-09 18:17] LABS: ALBUMIN 3.7 GM/DL (3.2-5.2); BILIRUBIN,TOTAL 0.9 MG/DL (0.2-1.0); CALCIUM LEVEL 8.7 MG/DL (8.8-10.2); CREATININE FOR GFR 1.66 MG/DL (0.55-1.30); GLOMERULAR FILTRATION RATE 31.6 (>32); TOTAL PROTEIN 8.1 GM/DL (6.4-8.2)
== END ==
LOC: M ADAMS 14:22
PROVIDERS: ATTEND Physician Assistant
DX: R11.2 Nausea with vomiting, unspecified (principal); R19.7 Diarrhea, unspecified

== ENCOUNTER → 2019-12-07 | Outpatient (REF) | payer MEDICARE ==
[~2019-12-07] MED LIST changes: +ACET650T3 PO; +AMIO100T5 PO; +AMIO200T PO; +ANOR1AER PO; +C 50TAB PO; +CARV12.5 PO; +MAGN200T PO; +MAGN400T2 PO; +MULTCAP PO; +TUMS1000 PO; +VITA100054 PO; +VITA500C24 PO; +VITMTA PO; +VOLT1GEL15 TD
[2019-12-07 13:11] LABS: PERCENT SATURATION 23.6 % (13.2-45.0)
== END ==
LOC: M LAB REF 12:06
PROVIDERS: ATTEND Internal Medicine
DX: D64.9 Anemia, unspecified (principal)

== ENCOUNTER 2020-07-27 09:41 | Emergency (ER) | payer MEDICARE ==
[~2020-07-27] VITALS: Ht 157.5 cm; Wt 69.1 kg
[~2020-07-27 09:41] MED LIST changes: +ACET650T61 PO; -AMIO200T PO; +AMIO200T3 PO; -TYLE650T35 PO
--- NOTE | 2020-07-27 10:05 | REP ---
INDICATION: TRAUMA COMPARISON: None. TECHNIQUE: Axial noncontrast images from the skull base to the thoracic inlet with coronal reformations. This CT examination was performed using the following dose reduction techniques: Automated exposure control, adjustment of mA and/or kv according to the patient's size, and use of iterative reconstruction technique. FINDINGS: Age-related atrophy and microvascular ischemic changes are appreciated. The ventricles and sulci are symmetric. Tyler-white differentiation is maintained. There is no evidence for acute intracranial hemorrhage, mass/mass effect, pathology or infarction. No extra-axial fluid collection. Calvarium is intact. Paranasal sinuses and mastoid air cells are clear. IMPRESSION: Age related atrophy and microvascular ischemic changes. No acute intracranial hemorrhage, infarction, or mass/mass effect. <Electronically signed by Andrew Gutierrez > 07/27/20 [id number]
--- NOTE | 2020-07-27 10:09 | REP ---
INDICATION: TRAUMA COMPARISON: None. TECHNIQUE: Axial noncontrast images from the skull base to the thoracic inlet with coronal and sagittal re-formations This CT examination was performed using the following dose reduction techniques: Automated exposure control, adjustment of mA and/or kv according to the patient's size, and use of iterative reconstruction technique. FINDINGS: Age-related osteopenia and moderate multilevel degenerative changes are appreciated including 2-3 mm of anterolisthesis at C4-5 and 1-2 mm retrolisthesis at the C5-6 and C6-7 levels which appear chronic based on surrounding spurring. No acute fracture/compression injury. Posterior disc bulges at C5-6 and C6-7 are also identified which appear chronic and without significant narrowing to the canal based on current examination. Posterior elements and spinous processes demonstrate facet arthropathy, but appear intact and without injury. Paravertebral soft tissues are within normal limits. IMPRESSION: Multilevel degenerative changes as described above. No evidence for acute fracture/compression injury or subluxation. <Electronically signed by Andrew Gutierrez > 07/27/20 [id number]
[2020-07-27] MEDS ORDERED: traMADol 50 MG TAB PO ONE (10:30)
--- NOTE | 2020-07-27 10:48 | REP ---
INDICATION: rib pain, fall COMPARISON: 06/24/2019 TECHNIQUE: Axial noncontrast images from the thoracic inlet to the upper abdomen with coronal and sagittal reformations. This CT examination was performed using the following dose reduction techniques: Automated exposure control, adjustment of mA and/or kv according to the patient's size, and use of iterative reconstruction technique. FINDINGS: The bilateral lung ji demonstrate chronic age-related interstitial changes with scattered scarring and mild chronic bronchiectasis. No focal consolidation/contusion, pleural effusion or pneumothorax. Tracheobronchial tree is patent. Mediastinum demonstrates stable appearance with advanced atherosclerotic changes to the thoracic aorta and coronary arteries. No pericardial effusion. Few mildly prominent lymph nodes are nonspecific and measure up to approximately 11 mm short axis diameter. The osseous structures demonstrate age-related osteopenia without evidence for acute injury. No rib fracture. Thoracic vertebral bodies are intact and demonstrate normal alignment. Sternum appears intact. Visualized portions of the bilateral shoulders appear normal. IMPRESSION: 1. Chronic appearing interstitial changes as noted above. No acute mediastinal or pleuroparenchymal process. 2. The osseous structures appear intact and without evidence for musculoskeletal injury. <Electronically signed by Andrew Gutierrez > 07/27/20 [id number]
--- NOTE | 2020-07-27 10:51 | REP ---
INDICATION: fall COMPARISON: None. TECHNIQUE: Internal rotation, external rotation, and Y view. FINDINGS: Chronic age-related changes are appreciated. There is no evidence for acute fracture or dislocation. The acromioclavicular and glenohumeral joints appear relatively age-appropriate and without significant overt arthritic changes. IMPRESSION: Normal essentially age-appropriate right shoulder radiographs. No acute fracture or dislocation. <Electronically signed by Andrew Gutierrez > 07/27/20 [id number]
--- NOTE | 2020-07-27 10:56 | REP ---
INDICATION: fall COMPARISON: None. TECHNIQUE: AP and lateral views of the right humerus. FINDINGS: Osseous structures are essentially age-appropriate. No acute fracture or dislocation. No subcutaneous emphysema or foreign body. IMPRESSION: . No acute fracture or dislocation. <Electronically signed by Andrew Gutierrez > 07/27/20 [id number]
[2020-07-27] MEDS ORDERED: ACETAMINOPHEN 500 MG TAB PO ONE (12:00)
[2020-07-27 12:06] VITALS: BP 159/65
== END 2020-07-27 12:12 | disposition home or self-care (01) ==
LOC: M ED 09:41
DX: S20.211A Contusion of right front wall of thorax, initial encounter (principal); W01.198A Fall on same level from slipping, tripping and stumbling with subsequent striking against other object, initial encounter; Y92.098 Other place in other non-institutional residence as the place of occurrence of the external cause; I48.91 Unspecified atrial fibrillation; I11.9 Hypertensive heart disease without heart failure; R73.03 Prediabetes; M06.9 Rheumatoid arthritis, unspecified; J44.9 Chronic obstructive pulmonary disease, unspecified; K21.9 Gastro-esophageal reflux disease without esophagitis; Z86.711 Personal history of pulmonary embolism; Z87.891 Personal history of nicotine dependence; Z79.899 Other long term (current) drug therapy; Z79.01 Long term (current) use of anticoagulants; Z79.02 Long term (current) use of antithrombotics/antiplatelets

== ENCOUNTER → 2020-08-20 | Outpatient (REF) | payer MEDICARE | LOC: M LAB REF 12:31 | PROVIDERS: ATTEND Internal Medicine | DX: M05.79 Rheumatoid arthritis with rheumatoid factor of multiple sites without organ or systems involvement (principal) ==

== ENCOUNTER → 2021-02-07 | Outpatient (REF) | payer MEDICARE ==
[~2021-02-07] MED LIST changes: +ISOS1TAB35 PO; -ISOS30TA4 PO
== END ==
LOC: M LAB REF 12:49
PROVIDERS: ATTEND Internal Medicine
DX: M15.9 Polyosteoarthritis, unspecified (principal); M05.79 Rheumatoid arthritis with rheumatoid factor of multiple sites without organ or systems involvement; Z79.899 Other long term (current) drug therapy

== ENCOUNTER → 2021-03-08 | Outpatient (CLI) | payer MEDICARE ==
--- NOTE | 2021-03-08 12:21 | REP ---
INDICATION: SHORTNESS OF BREATH COMPARISON: 02/01/2010 TECHNIQUE: PA and lateral. FINDINGS: The mediastinum and cardiac silhouette are normal. The lung ji suggest chronic changes. Very subtle scattered superimposed interstitial infiltrates cannot be excluded. No focal consolidation or effusion. No pneumothorax. The skeletal structures are intact and normal. IMPRESSION: Chronic stable changes. Cannot exclude very subtle interstitial opacities. <Electronically signed by Andrew Gutierrez > 03/08/21 [id number]
== END ==
LOC: M RAD 11:37
PROVIDERS: ATTEND Nurse Practitioner Family
DX: J84.10 Pulmonary fibrosis, unspecified (principal)

== ENCOUNTER → 2021-03-08 | Outpatient (CLI) | payer MEDICARE ==
[2021-03-08 12:48] LABS: BASO # 0.1 10^3/uL (0.0-0.2); BASO % 1.3 % (0.0-1.0); EOS # 0.3 10^3/uL (0.0-0.5); EOS % 4.7 % (0.0-3.0); HEMATOCRIT 35.5 % (36.0-47.0); HEMOGLOBIN 11.2 g/dl (12.0-15.5); LYMPH # 0.7 10^3/uL (1.5-5.0); LYMPH % 11.7 % (24.0-44.0); MEAN CORPUSCULAR HEMOGLOBIN 28.4 pg (27.0-33.0); MEAN CORPUSCULAR HGB CONC 31.5 g/dl (32.0-36.5); MEAN CORPUSCULAR VOLUME 90.1 fl (80.0-96.0); MONO # 0.5 10^3/uL (0.0-0.8); MONO % 9.4 % (2.0-8.0); NEUTROPHILS # 4.1 10^3/uL (1.5-8.5); NEUTROPHILS % 72.7 % (36.0-66.0); PLATELET COUNT, AUTOMATED 274 10^3/uL (150-450); RED BLOOD COUNT 3.94 10^6/uL (4.00-5.40); WHITE BLOOD COUNT 5.6 10^3/uL (4.0-10.0)
[2021-03-08 13:27] LABS: CALCIUM LEVEL 9.1 MG/DL (8.8-10.2); CREATININE FOR GFR 1.6 MG/DL (0.55-1.30); GLOMERULAR FILTRATION RATE 32.8 (>32); POTASSIUM SERUM 3.9 MEQ/L (3.5-5.1)
== END ==
LOC: M LAB 11:30
PROVIDERS: ATTEND Physician Assistant
DX: R06.02 Shortness of breath (principal); R05 Cough; I50.32 Chronic diastolic (congestive) heart failure; J84.10 Pulmonary fibrosis, unspecified

== ENCOUNTER → 2021-05-10 | Outpatient (CLI) | payer MEDICARE ==
[~2021-05-10] MED LIST changes: +OMEP40CA4 PO; -OMEP40CA97 PO
--- NOTE | 2021-05-10 12:54 | REP ---
INDICATION: PAIN. COMPARISON: 03/14/2014. TECHNIQUE: Two views left hip. FINDINGS: There is no evidence of acute fracture, dislocation or intrinsic bone disease. There is very mild joint space narrowing and subchondral sclerosis with mild spurring. There is mild sclerosis at the left sacroiliac joint. IMPRESSION: Mild degenerative changes. <Electronically signed by Subhash Tyler > 05/10/21 [id number]
--- NOTE | 2021-05-10 12:58 | REP ---
INDICATION: PAIN. COMPARISON: Abdomen/pelvis CT dated 11/09/2019. TECHNIQUE: There are five views. FINDINGS: Vertebral body heights and alignment are normal and unchanged. There is advanced degenerative disc disease throughout the lumbar spine, most advanced at L2-3, L3-4 and L4-5. There is no spondylolysis or spondylolisthesis. There is lumbar scoliosis convex right in the upper lumbar spine and left in the lower lumbar spine. There is osteoarthritis in the facet articulations, particularly at the lower lumbar levels. The sacroiliac articulations are unremarkable. There are surgical clips in the abdominal right upper quadrant. IMPRESSION: Advanced multilevel degenerative disc disease. Scoliosis as described. Facet osteoarthritis. <Electronically signed by Subhash Bennett > 05/10/21 [id number]
== END ==
LOC: M WUC 11:43
PROVIDERS: ATTEND Internal Medicine
DX: M46.1 Sacroiliitis, not elsewhere classified (principal); M16.12 Unilateral primary osteoarthritis, left hip; M51.36 Other intervertebral disc degeneration, lumbar region; M53.86 Other specified dorsopathies, lumbar region; M41.86 Other forms of scoliosis, lumbar region

== ENCOUNTER → 2021-06-25 | Outpatient (REF) | payer MEDICARE ==
[~2021-06-25] MED LIST changes: +AMLO1TAB24 PO; +DICL20GE TP; +EUTH50TA PO; +PACE200T PO
[2021-06-25 16:52] LABS: PHOSPHORUS LEVEL 3.8 MG/DL (2.5-4.9)
== END ==
LOC: M LAB REF 15:59
PROVIDERS: ATTEND Internal Medicine
DX: I50.32 Chronic diastolic (congestive) heart failure (principal)

== ENCOUNTER → 2021-10-08 | Outpatient (CLI) | payer MEDICARE ==
--- NOTE | 2021-10-08 15:29 | REP ---
INDICATION: PULMONARY FIBROSIS. COMPARISON: Multiple the latest 03/08/2021 TECHNIQUE: PA and lateral FINDINGS: Once again, there is a subtle but diffuse increase in the interstitial markings throughout the lung ji status quo. No acute patchy parenchymal opacities or pleural effusions have developed. The heart is not enlarged. The osseous structures are stable. IMPRESSION: No significant change <Electronically signed by Prakash Ruiz > 10/08/21 [id number]
== END ==
LOC: M ADAMS 14:58
PROVIDERS: ATTEND Internal Medicine Pulmonary Disease
DX: J84.10 Pulmonary fibrosis, unspecified (principal)

== ENCOUNTER → 2021-11-06 | Outpatient (REF) | payer MEDICARE ==
[~2021-11-06] MED LIST changes: -AMIO200T3 PO; +AMIO200T49 PO; +OMEP-173 PO; -OMEP-218 PO; +POTA-151 PO; -POTA20TA6 PO
[2021-11-06 12:49] LABS: PHOSPHORUS LEVEL 3.9 MG/DL (2.5-4.9)
== END ==
LOC: M LAB REF 11:40
PROVIDERS: ATTEND Internal Medicine
DX: I50.32 Chronic diastolic (congestive) heart failure (principal)

== ENCOUNTER 2021-11-27 11:57 | Emergency (ER) | payer MEDICARE ==
[~2021-11-27] VITALS: Ht 152.4 cm; Wt 65.5 kg
[2021-11-27 13:45] LABS: RSV AMPLIFICATION NEGATIVE (NEGATIVE)
[2021-11-27] MEDS ORDERED: AUGM500T34 PO (14:46)
[2021-11-27] MEDS ORDERED: FLUTISP (14:46)
[2021-11-27 15:18] VITALS: BP 154/72
[2021-11-27 16:19] LABS: BASO # 0.1 10^3/uL (0.0-0.2); BASO % 1.4 % (0.0-1.0); EOS # 0.3 10^3/uL (0.0-0.5); EOS % 5.1 % (0.0-3.0); HEMATOCRIT 36.5 % (36.0-47.0); HEMOGLOBIN 11.2 g/dl (12.0-15.5); LYMPH # 0.8 10^3/uL (1.5-5.0); LYMPH % 14.3 % (24.0-44.0); MEAN CORPUSCULAR HEMOGLOBIN 27.9 pg (27.0-33.0); MEAN CORPUSCULAR HGB CONC 30.7 g/dl (32.0-36.5); MONO # 0.8 10^3/uL (0.0-0.8); NEUTROPHILS # 3.5 10^3/uL (1.5-8.5); NEUTROPHILS % 63.8 % (36.0-66.0); PLATELET COUNT, AUTOMATED 261 10^3/uL (150-450); RED BLOOD COUNT 4.01 10^6/uL (4.00-5.40); WHITE BLOOD COUNT 5.5 10^3/uL (4.0-10.0)
[2021-11-27 18:25] LABS: CALCIUM LEVEL 8.6 MG/DL (8.8-10.2); CREATININE FOR GFR 1.54 MG/DL (0.55-1.30); GLOMERULAR FILTRATION RATE 34.2 (>32); POTASSIUM SERUM 3.9 MEQ/L (3.5-5.1)
== END 2021-11-27 15:52 | disposition home or self-care (01) ==
LOC: M ED 11:57
DX: J01.90 Acute sinusitis, unspecified (principal); H66.92 Otitis media, unspecified, left ear; R06.02 Shortness of breath; I11.0 Hypertensive heart disease with heart failure; J44.9 Chronic obstructive pulmonary disease, unspecified; E78.5 Hyperlipidemia, unspecified; I50.9 Heart failure, unspecified; I25.2 Old myocardial infarction; I25.10 Atherosclerotic heart disease of native coronary artery without angina pectoris; R56.9 Unspecified convulsions; N17.9 Acute kidney failure, unspecified; Z87.891 Personal history of nicotine dependence; Z79.899 Other long term (current) drug therapy; Z79.84 Long term (current) use of oral hypoglycemic drugs; Z79.01 Long term (current) use of anticoagulants; Z79.82 Long term (current) use of aspirin

== ENCOUNTER → 2021-12-04 | Outpatient (REF) | payer MEDICARE ==
[~2021-12-04] MED LIST changes: +AUGM500T34 PO; +FLUTISP
[2021-12-04 13:56] LABS: PHOSPHORUS LEVEL 3.9 MG/DL (2.5-4.9)
== END ==
LOC: M LAB REF 11:25
PROVIDERS: ATTEND Internal Medicine
DX: I50.32 Chronic diastolic (congestive) heart failure (principal)

== ENCOUNTER → 2022-01-27 | Outpatient (REF) | payer MEDICARE ==
[2022-01-27 18:35] LABS: ATYPICAL LYMPH 6 % (0-5); EOSINOPHILS 7 % (0-3); LYMPHOCYTES 16 % (16-44); MONOCYTES 7 % (0-5); NEUTROPHILS 58 % (28-66)
[2022-01-27 18:36] LABS: PLATELET ESTIMATE NORMAL (NORMAL)
== END ==
LOC: M LAB REF 16:25
PROVIDERS: ATTEND Internal Medicine
DX: D72.89 Other specified disorders of white blood cells (principal); E11.21 Type 2 diabetes mellitus with diabetic nephropathy

== ENCOUNTER → 2022-01-27 | Outpatient (REF) | payer MEDICARE | LOC: M LAB REF 12:09 | PROVIDERS: ATTEND Internal Medicine | DX: I50.32 Chronic diastolic (congestive) heart failure (principal) ==

== ENCOUNTER → 2022-03-07 | Outpatient (REF) | payer MEDICARE | LOC: M LAB REF 12:11 | PROVIDERS: ATTEND Internal Medicine | DX: M05.79 Rheumatoid arthritis with rheumatoid factor of multiple sites without organ or systems involvement (principal); M15.9 Polyosteoarthritis, unspecified ==

== ENCOUNTER → 2022-07-18 | Outpatient (CLI) | payer MEDICARE | LOC: M WUC 13:49 | PROVIDERS: ATTEND Physician Assistant Medical | DX: M25.551 Pain in right hip (principal); M41.9 Scoliosis, unspecified; M51.37 Other intervertebral disc degeneration, lumbosacral region ==

== ENCOUNTER → 2022-08-08 | Outpatient (CLI) | payer MEDICARE ==
[~2022-08-08] MED LIST changes: +CLOP75TA99 PO; -PLAV1TAB2 PO
[2022-08-08 14:07] LABS: BASO # 0.1 10^3/uL (0.0-0.2); BASO % 1.2 % (0.0-1.0); EOS # 0.4 10^3/uL (0.0-0.5); EOS % 6.8 % (0.0-3.0); HEMATOCRIT 37.1 % (36.0-47.0); HEMOGLOBIN 11.7 g/dl (12.0-15.5); LYMPH # 0.6 10^3/uL (1.5-5.0); LYMPH % 9.3 % (24.0-44.0); MEAN CORPUSCULAR HGB CONC 31.5 g/dl (32.0-36.5); MEAN CORPUSCULAR VOLUME 91.8 fl (80.0-96.0); MONO # 0.7 10^3/uL (0.0-0.8); MONO % 11.1 % (2.0-8.0); NEUTROPHILS # 4.3 10^3/uL (1.5-8.5); NEUTROPHILS % 71.1 % (36.0-66.0); PLATELET COUNT, AUTOMATED 267 10^3/uL (150-450); RED BLOOD COUNT 4.04 10^6/uL (4.00-5.40); WHITE BLOOD COUNT 6.1 10^3/uL (4.0-10.0)
[2022-08-08 14:59] LABS: CREATININE FOR GFR 1.69 MG/DL (0.55-1.30); GLOMERULAR FILTRATION RATE 30.7 (>32)
[2022-08-08 15:00] LABS: ALBUMIN 3.7 GM/DL (3.2-5.2); BILIRUBIN,TOTAL 0.5 MG/DL (0.2-1.0); CALCIUM LEVEL 9.2 MG/DL (8.8-10.2); POTASSIUM SERUM 4.6 MEQ/L (3.5-5.1); THYROID STIMULATING HORMONE 3.11 uIU/ML (0.358-3.740); TOTAL PROTEIN 7.7 GM/DL (6.4-8.2)
== END ==
LOC: M LABDRWAD 08:40
PROVIDERS: ATTEND Internal Medicine Cardiovascular Disease
DX: I25.2 Old myocardial infarction (principal); Z79.899 Other long term (current) drug therapy

== ENCOUNTER → 2022-12-12 | Outpatient (REF) | payer MEDICARE ==
[2022-12-12 18:54] LABS: ATYPICAL LYMPH 8 % (0-5); BASOPHILS 1 % (0-1); EOSINOPHILS 4 % (0-3); LYMPHOCYTES 4 % (16-44); MONOCYTES 7 % (0-5); NEUTROPHILS 58 % (28-66); PLATELET ESTIMATE NORMAL (NORMAL); POIKILOCYTOSIS 1+
== END ==
LOC: M LAB REF 16:22
PROVIDERS: ATTEND Internal Medicine
DX: D72.9 Disorder of white blood cells, unspecified (principal)

== ENCOUNTER 2023-01-19 10:39 | Observation (INO) | payer MEDICARE ==
[~2023-01-19] VITALS: Ht 157.5 cm; Wt 59.3 kg
[~2023-01-19 10:39] MED LIST changes: +DICL20GE TOP; -DICL20GE TP; +FLUT50SP17; -FLUTISP
[2023-01-19] MEDS ORDERED: ONDANSETRON 4MG 2ML VIAL IV ONE (12:20)
[2023-01-19] MEDS ORDERED: NS 500 ML IV ONE (12:20)
[2023-01-19 12:57] LABS: BASO # 0.1 10^3/uL (0.0-0.2); BASO % 0.7 % (0.0-1.0); EOS # 0.1 10^3/uL (0.0-0.5); EOS % 1.7 % (0.0-3.0); HEMOGLOBIN 11.6 g/dl (12.0-15.5); LYMPH # 0.5 10^3/uL (1.5-5.0); LYMPH % 5.5 % (24.0-44.0); MEAN CORPUSCULAR HEMOGLOBIN 28.4 pg (27.0-33.0); MEAN CORPUSCULAR HGB CONC 32.2 g/dl (32.0-36.5); MEAN CORPUSCULAR VOLUME 88.2 fl (80.0-96.0); MONO # 0.3 10^3/uL (0.0-0.8); MONO % 4.1 % (2.0-8.0); NEUTROPHILS # 7.1 10^3/uL (1.5-8.5); NEUTROPHILS % 87.3 % (36.0-66.0); PLATELET COUNT, AUTOMATED 274 10^3/uL (150-450); RED BLOOD COUNT 4.08 10^6/uL (4.00-5.40); WHITE BLOOD COUNT 8.1 10^3/uL (4.0-10.0)
[2023-01-19 13:18] LABS: LIPASE 44 U/L (12-53)
[2023-01-19 13:21] LABS: ALBUMIN 3.8 G/DL (3.2-5.2); ALKALINE PHOSPHATASE 95 U/L (46-116); ALT/SGPT 19 U/L (7.0-40); AST/SGOT 20 U/L (<34); BILIRUBIN,DIRECT 0.2 MG/DL (<0.4); BILIRUBIN,TOTAL 0.7 MG/DL (0.3-1.2); BLOOD UREA NITROGEN 40 MG/DL (9-23); CALCIUM LEVEL 8.3 MG/DL (8.3-10.6); CARBON DIOXIDE LEVEL 28 MMOL/L (20-31); CHLORIDE LEVEL 98 MMOL/L (98-107); CK-MB VALUE MASS < 1.0 NG/ML (<3.6); CPK CREATINE PHOSPHOKINASE 74 U/L (34-145); CREATININE FOR GFR 2.09 MG/DL (0.55-1.30); GLUCOSE, FASTING 278 MG/DL (74-106); MAGNESIUM LEVEL 2.3 MG/DL (1.8-2.4); MB/CK RELATIVE INDEX 1.35 (< OR =4); SODIUM LEVEL 134 MMOL/L (136-145); TOTAL PROTEIN 7.6 G/DL (5.7-8.2)
[2023-01-19 13:44] LABS: RSV AMPLIFICATION NEGATIVE (NEGATIVE)
[2023-01-19] MEDS ORDERED: NS 1,000 ML IV SCH (13:45)
[2023-01-19 13:57] LABS: CK-MB VALUE MASS < 1.0 NG/ML (<3.6)
[2023-01-19 13:59] LABS: CPK CREATINE PHOSPHOKINASE 71 U/L (34-145)
[2023-01-19] MEDS ORDERED: GLUCAGON INJ 1MG VIAL SC PRN (15:45)
[2023-01-19] MEDS ORDERED: GLUCOSE 4GM CHEW TABLET PO PRN (15:45)
[2023-01-19] MEDS ORDERED: DEXTROSE 50% 50ML SYRINGE IV PRN (15:45)
[2023-01-19] MEDS ORDERED: ACETAMINOPHEN TAB 650MG DOSE (2X325MG) PO PRN (15:45)
[2023-01-19] MEDS ORDERED: METOCLOPRAMIDE 5 MG TAB PO PRN (15:45)
[2023-01-19] MEDS ORDERED: METOCLOPRAMIDE INJ 10MG/2ML VIAL IV PRN (15:45)
[2023-01-19] MEDS ORDERED: FURO40TA2 PO (15:53)
[2023-01-19] MEDS ORDERED: D 1010004 PO (15:53)
[2023-01-19] MEDS ORDERED: TYLE650T38 PO (15:55)
[2023-01-19] MEDS ORDERED: HOME MED LIST COMPLETE! XX SCH (16:00)
[2023-01-19] MEDS ORDERED: ALBUTEROL 90 MCG/ACT 8GM HFA INHALER INH PRN (16:00)
[2023-01-19] MEDS: INSULIN LISPRO (NovoLOG) PER UNIT SC SCH (16:45)
[2023-01-19] MEDS: MAGNESIUM OXIDE 400MG TAB (MAG-OX) PO SCH (16:46)
[2023-01-19] MEDS ORDERED: INSULIN LISPRO (NovoLOG) PER UNIT SC SCH ×3 (17:30→21:00)
[2023-01-19] MEDS ORDERED: ASPIRIN 81MG ENTERIC TABLET PO SCH (21:00)
[2023-01-19] MEDS ORDERED: OMEPRAZOLE 20MG CAP PO SCH (21:00)
[2023-01-19] MEDS ORDERED: ATORVASTATIN 20 MG TAB PO SCH (21:00)
[2023-01-19] MEDS ORDERED: ASCORBIC ACID 500 MG TAB PO SCH (21:00)
[2023-01-19 22:00] VITALS: BP_SYST 134; BP_SYST 138; BP_DIAS 58
[2023-01-19] MEDS: APIXABAN 2.5 MG TAB (ELIQUIS) PO SCH (22:51)
[2023-01-19] MEDS: CARVedilol 12.5 MG TAB PO SCH (22:51)
[2023-01-19] MEDS: CALCIUM CARBONATE 500 MG CHEW U/D PO SCH (22:52)
[2023-01-20 05:12] VITALS: BP 132/62
[2023-01-20 06:00] VITALS: BP 132/62
[2023-01-20] MEDS ORDERED: LEVOTHYROXINE 50MCG TABLET (0.05MG) PO SCH (06:00)
[2023-01-20 06:22] LABS: HEMATOCRIT 32.9 % (36.0-47.0); HEMOGLOBIN 10.7 g/dl (12.0-15.5); MEAN CORPUSCULAR HEMOGLOBIN 28.9 pg (27.0-33.0); MEAN CORPUSCULAR HGB CONC 32.5 g/dl (32.0-36.5); MEAN CORPUSCULAR VOLUME 88.9 fl (80.0-96.0); PLATELET COUNT, AUTOMATED 256 10^3/uL (150-450); WHITE BLOOD COUNT 6.1 10^3/uL (4.0-10.0)
[2023-01-20 06:59] LABS: ALBUMIN 3.3 G/DL (3.2-5.2); BILIRUBIN,TOTAL 0.5 MG/DL (0.3-1.2); CALCIUM LEVEL 8.2 MG/DL (8.3-10.6); CREATININE FOR GFR 1.7 MG/DL (0.55-1.30); GLOMERULAR FILTRATION RATE 30.5 (>32); MAGNESIUM LEVEL 2.3 MG/DL (1.8-2.4); POTASSIUM SERUM 3.6 MMOL/L (3.5-5.1); TOTAL PROTEIN 6.5 G/DL (5.7-8.2)
[2023-01-20] MEDS: INSULIN LISPRO (NovoLOG) PER UNIT SC SCH (07:30)
[2023-01-20] MEDS: CALCIUM CARBONATE 500 MG CHEW U/D PO SCH (08:53)
[2023-01-20] MEDS: MAGNESIUM OXIDE 400MG TAB (MAG-OX) PO SCH (08:54)
[2023-01-20 08:57] VITALS: BP 148/62
[2023-01-20] MEDS: APIXABAN 2.5 MG TAB (ELIQUIS) PO SCH (08:58)
[2023-01-20] MEDS: CARVedilol 12.5 MG TAB PO SCH (08:58)
[2023-01-20] MEDS ORDERED: ISOSORBIDE MON. (IMDUR) 30MG XR TAB PO SCH (09:00)
[2023-01-20] MEDS ORDERED: amLODIPine 5 MG TAB PO SCH (09:00)
[2023-01-20] MEDS ORDERED: MULTIVITAMINS/MINERALS THERAP 1 TAB PO SCH (09:00)
[2023-01-20] MEDS ORDERED: SPIRONOLACTONE 25 MG TAB PO SCH (09:00)
[2023-01-21] MEDS ORDERED: AMIODARONE 200 MG TAB (PACERONE) PO SCH (09:00)
[2023-01-21] MEDS ORDERED: HYDROXYCHLOROQUINE 200 MG TAB PO SCH (16:00)
== END 2023-01-20 11:26 | disposition home or self-care (01) ==
LOC: EDBD 10:39 → M ED 10:39 → M ED INP 15:41 → M MSPAV 21:57
PROVIDERS: ADMIT Family Medicine; ATTEND Family Medicine
DX: R11.2 Nausea with vomiting, unspecified (principal); R10.9 Unspecified abdominal pain; N17.9 Acute kidney failure, unspecified; N18.9 Chronic kidney disease, unspecified; E86.0 Dehydration; I48.91 Unspecified atrial fibrillation; I25.10 Atherosclerotic heart disease of native coronary artery without angina pectoris; Z95.5 Presence of coronary angioplasty implant and graft; J44.9 Chronic obstructive pulmonary disease, unspecified; E11.22 Type 2 diabetes mellitus with diabetic chronic kidney disease; M06.9 Rheumatoid arthritis, unspecified; I11.0 Hypertensive heart disease with heart failure; K21.9 Gastro-esophageal reflux disease without esophagitis; I50.9 Heart failure, unspecified; I25.2 Old myocardial infarction; Z99.81 Dependence on supplemental oxygen; Z86.711 Personal history of pulmonary embolism; Z79.899 Other long term (current) drug therapy; Z79.01 Long term (current) use of anticoagulants; Z79.82 Long term (current) use of aspirin; Z79.890 Hormone replacement therapy; Z79.84 Long term (current) use of oral hypoglycemic drugs
CPT/HCPCS: 36415; 74021; 74176; 80048; 80053; 80076; 82550; 82553; 83690; 83735; 84484; 85025; 85027; 87631; 93005; 93041; 94640; 96361; 96374; 99285; G0378; J2405

== ENCOUNTER → 2023-02-10 | Outpatient (CLI) | payer MEDICARE ==
[~2023-02-10] MED LIST changes: +D 1010004 PO; +FURO40TA2 PO; +TYLE650T38 PO
[2023-02-10 13:32] LABS: BASO # 0.1 10^3/uL (0.0-0.2); EOS # 0.2 10^3/uL (0.0-0.5); EOS % 3.3 % (0.0-3.0); HEMATOCRIT 37.2 % (36.0-47.0); HEMOGLOBIN 12.1 g/dl (12.0-15.5); LYMPH # 0.6 10^3/uL (1.5-5.0); LYMPH % 9.7 % (24.0-44.0); MEAN CORPUSCULAR HEMOGLOBIN 29.3 pg (27.0-33.0); MEAN CORPUSCULAR HGB CONC 32.5 g/dl (32.0-36.5); MEAN CORPUSCULAR VOLUME 90.1 fl (80.0-96.0); MONO # 0.6 10^3/uL (0.0-0.8); MONO % 10.7 % (2.0-8.0); NEUTROPHILS # 4.3 10^3/uL (1.5-8.5); NEUTROPHILS % 74.6 % (36.0-66.0); PLATELET COUNT, AUTOMATED 314 10^3/uL (150-450); RED BLOOD COUNT 4.13 10^6/uL (4.00-5.40); WHITE BLOOD COUNT 5.8 10^3/uL (4.0-10.0)
[2023-02-10 13:35] LABS: BILIRUBIN,TOTAL 0.6 MG/DL (0.3-1.2); CALCIUM LEVEL 8.7 MG/DL (8.3-10.6); CREATININE FOR GFR 1.54 MG/DL (0.55-1.30); GLOMERULAR FILTRATION RATE 34.1 (>32); POTASSIUM SERUM 4.6 MMOL/L (3.5-5.1); TOTAL PROTEIN 7.4 G/DL (5.7-8.2)
[2023-02-10 13:37] LABS: THYROID STIMULATING HORMONE 3.139 uIU/ML (0.55-4.78)
== END ==
LOC: M LABDRWAD 09:23
PROVIDERS: ATTEND Internal Medicine Cardiovascular Disease
DX: I50.32 Chronic diastolic (congestive) heart failure (principal); I48.0 Paroxysmal atrial fibrillation

== ENCOUNTER → 2023-03-26 | Outpatient (CLI) | payer MEDICARE ==
[~2023-03-26] MED LIST changes: +AMIO100T4 PO; -AMIO100T5 PO; -HYDR200T3 PO; +HYDR200T46 PO; -K-TA10TA2 PO; +POTA-165 PO
== END ==
LOC: M ADAMS 13:38
PROVIDERS: ATTEND Internal Medicine Pulmonary Disease
DX: J84.10 Pulmonary fibrosis, unspecified (principal)

== ENCOUNTER → 2023-04-01 | Outpatient (REF) | payer MEDICARE ==
[2023-04-01 14:31] LABS: BASO # 0.1 10^3/uL (0.0-0.2); BASO % 1.3 % (0.0-1.0); EOS # 0.5 10^3/uL (0.0-0.5); EOS % 6.9 % (0.0-3.0); HEMATOCRIT 37.5 % (36.0-47.0); HEMOGLOBIN 12.3 g/dl (12.0-15.5); LYMPH # 0.5 10^3/uL (1.5-5.0); LYMPH % 7.8 % (24.0-44.0); MEAN CORPUSCULAR HGB CONC 32.8 g/dl (32.0-36.5); MEAN CORPUSCULAR VOLUME 88.4 fl (80.0-96.0); MONO # 0.6 10^3/uL (0.0-0.8); NEUTROPHILS % 74.3 % (36.0-66.0); PLATELET COUNT, AUTOMATED 298 10^3/uL (150-450); RED BLOOD COUNT 4.24 10^6/uL (4.00-5.40); WHITE BLOOD COUNT 6.8 10^3/uL (4.0-10.0)
[2023-04-01 14:58] LABS: ERYTHROCYTE SEDIMENTATION RATE 43 mm/hr (0-30)
[2023-04-01 14:59] LABS: C REACTIVE PROTEIN QUANTITATIV < 0.40 MG/DL (<1.0)
[2023-04-01 15:20] LABS: RHEUMATOID FACTOR QUANT 226.5 IU/ML (<14)
== END ==
LOC: M LAB REF 13:21
PROVIDERS: ATTEND Internal Medicine Pulmonary Disease
DX: I27.0 Primary pulmonary hypertension (principal)

== ENCOUNTER → 2023-05-18 | Outpatient (REF) | payer MEDICARE ==
[2023-05-18 13:07] LABS: BASO # 0.1 10^3/uL (0.0-0.2); EOS # 0.4 10^3/uL (0.0-0.5); HEMATOCRIT 34.4 % (36.0-47.0); HEMOGLOBIN 11.2 g/dl (12.0-15.5); LYMPH # 0.5 10^3/uL (1.5-5.0); MEAN CORPUSCULAR HGB CONC 32.6 g/dl (32.0-36.5); MEAN CORPUSCULAR VOLUME 89.1 fl (80.0-96.0); MONO # 0.8 10^3/uL (0.0-0.8); MONO % 9.8 % (2.0-8.0); NEUTROPHILS % 76.7 % (36.0-66.0); PLATELET COUNT, AUTOMATED 271 10^3/uL (150-450); RED BLOOD COUNT 3.86 10^6/uL (4.00-5.40); WHITE BLOOD COUNT 7.8 10^3/uL (4.0-10.0)
[2023-05-18 13:09] LABS: ALBUMIN 3.4 G/DL (3.2-5.2); CALCIUM LEVEL 8.4 MG/DL (8.3-10.6); CREATININE FOR GFR 1.65 MG/DL (0.55-1.30); GLOMERULAR FILTRATION RATE 31.5 (>32); PHOSPHORUS LEVEL 3.4 MG/DL (2.4-5.1); POTASSIUM SERUM 4.1 MMOL/L (3.5-5.1)
== END ==
LOC: M LABDRWAD 12:20
PROVIDERS: ATTEND Internal Medicine Cardiovascular Disease
DX: I50.32 Chronic diastolic (congestive) heart failure (principal); I48.0 Paroxysmal atrial fibrillation; I47.20 Ventricular tachycardia, unspecified; I34.0 Nonrheumatic mitral (valve) insufficiency; I11.0 Hypertensive heart disease with heart failure

== ENCOUNTER → 2023-05-26 | Outpatient (CLI) | payer MEDICARE | LOC: M ADAMS 10:27 | PROVIDERS: ATTEND Internal Medicine Pulmonary Disease | DX: J84.10 Pulmonary fibrosis, unspecified (principal) ==

== ENCOUNTER 2023-06-19 09:13 | Inpatient (IN) | payer MEDICARE ==
[~2023-06-19] VITALS: Ht 154.9 cm; Wt 59.8 kg
[2023-06-19] MEDS ORDERED: ONDANSETRON 4MG 2ML VIAL IV ONE (10:25)
[2023-06-19] MEDS ORDERED: CEFTAROLINE FOSAMIL 600 MG in D5W MINI-BAG PLUS 50 ML IV ONE (10:30)
[2023-06-19 11:01] LABS: BASO % 0.3 % (0.0-1.0); EOS # 0.2 10^3/uL (0.0-0.5); EOS % 1.1 % (0.0-3.0); HEMATOCRIT 35.2 % (36.0-47.0); HEMOGLOBIN 11.4 g/dl (12.0-15.5); LYMPH # 0.4 10^3/uL (1.5-5.0); LYMPH % 2.9 % (24.0-44.0); MEAN CORPUSCULAR HEMOGLOBIN 28.9 pg (27.0-33.0); MEAN CORPUSCULAR HGB CONC 32.4 g/dl (32.0-36.5); MEAN CORPUSCULAR VOLUME 89.3 fl (80.0-96.0); MONO # 0.9 10^3/uL (0.0-0.8); MONO % 6.5 % (2.0-8.0); NEUTROPHILS # 12.3 10^3/uL (1.5-8.5); NEUTROPHILS % 88.3 % (36.0-66.0); PLATELET COUNT, AUTOMATED 221 10^3/uL (150-450); RED BLOOD COUNT 3.94 10^6/uL (4.00-5.40); WHITE BLOOD COUNT 13.9 10^3/uL (4.0-10.0)
[2023-06-19 11:15] LABS: INR 1.56; PARTIAL THROMBOPLASTIN TIME 30.5 SECONDS (24.8-34.2); PROTHROMBIN TIME 18.2 SECONDS (12.5-14.5)
[2023-06-19 11:16] LABS: C REACTIVE PROTEIN QUANTITATIV 11.1 MG/DL (<1.0)
[2023-06-19 11:17] LABS: CALCIUM LEVEL 9.2 MG/DL (8.3-10.6); CREATININE FOR GFR 2.06 MG/DL (0.55-1.30); GLOMERULAR FILTRATION RATE 24.4 (>32); POTASSIUM SERUM 3.8 MMOL/L (3.5-5.1)
[2023-06-19 11:37] LABS: ERYTHROCYTE SEDIMENTATION RATE 65 mm/hr (0-30)
[2023-06-19] MEDS ORDERED: LIDOCAINE W/EPINEPHRINE 1% 20ML VIAL SC ONE (11:50)
[2023-06-19] MEDS ORDERED: NS 500 ML IV ONE (13:00)
[2023-06-19] MEDS ORDERED: ACETAMINOPHEN TAB 650MG DOSE (2X325MG) PO PRN (14:55)
[2023-06-19] MEDS ORDERED: DEXTROSE 50% 50ML SYRINGE IV PRN (15:20)
[2023-06-19] MEDS ORDERED: GLUCAGON INJ 1MG VIAL SC PRN (15:20)
[2023-06-19] MEDS ORDERED: GLUCOSE 4GM CHEW TABLET PO PRN (15:20)
[2023-06-19] MEDS ORDERED: MED REC IN PROGRESS XX SCH (16:05)
[2023-06-19] MEDS ORDERED: BEVE1AER INH (16:54)
[2023-06-19] MEDS ORDERED: PRED20TA PO (16:54)
[2023-06-19] MEDS ORDERED: HUMI40IN2 SQ (16:54)
[2023-06-19] MEDS ORDERED: HOME MED LIST COMPLETE! XX SCH (17:00)
[2023-06-19] MEDS ORDERED: CEPH500C PO (17:04)
[2023-06-19] MEDS ORDERED: CALCIUM CARBONATE 500 MG CHEW U/D PO PRN (17:35)
[2023-06-19] MEDS ORDERED: ALBUTEROL 90 MCG/ACT 8GM HFA INHALER INH PRN (17:35)
[2023-06-19 17:45] VITALS: BP 138/58; TEMP 97.3; O2SAT 90
[2023-06-19] MEDS ORDERED: HUMIRA SQ SCH (17:50)
[2023-06-19] MEDS ORDERED: VANCOMYCIN HCL 750 MG, VIAL MATE ADAPTER 1 EACH in D5W 250 ML IV ONE (18:00)
[2023-06-19] MEDS: INSULIN LISPRO (NovoLOG) PER UNIT SC SCH ×2 (18:50→21:00)
[2023-06-19] MEDS: POTASSIUM CHLORIDE 10MEQ SR TABLET PO SCH (18:55)
[2023-06-19] MEDS: predniSONE 10MG TAB PO SCH (18:55)
[2023-06-19] MEDS ORDERED: VANCOMYCIN HCL 500 MG in D5W MINI-BAG PLUS 100 ML IV ONE (19:00)
[2023-06-19] MEDS: SYMBICORT 160/4.5MCG INHALER 6GM INH SCH (19:56)
[2023-06-19] MEDS: ATORVASTATIN 20 MG TAB PO SCH (20:03)
[2023-06-19] MEDS: OMEPRAZOLE 20MG CAP PO SCH (20:04)
[2023-06-19] MEDS: ASCORBIC ACID 500 MG TAB PO SCH (20:05)
[2023-06-19] MEDS: ASPIRIN 81MG ENTERIC TABLET PO SCH (20:05)
[2023-06-19] MEDS: APIXABAN 2.5 MG TAB (ELIQUIS) PO SCH (20:06)
[2023-06-19 20:09] VITALS: BP 130/50; TEMP 98.1; O2SAT 91
[2023-06-19] MEDS: CARVedilol 12.5 MG TAB PO SCH (20:09)
[2023-06-20] MEDS ORDERED: RAMELTEON 8 MG TAB (ROZEREM) PO PRN (01:15)
[2023-06-20] MEDS: LEVOTHYROXINE 50MCG TABLET (0.05MG) PO SCH (05:52)
[2023-06-20 06:24] VITALS: BP 143/59; TEMP 97.7; O2SAT 99
[2023-06-20 06:33] LABS: HEMOGLOBIN 10.5 g/dl (12.0-15.5); MEAN CORPUSCULAR HEMOGLOBIN 29.3 pg (27.0-33.0); MEAN CORPUSCULAR HGB CONC 32.8 g/dl (32.0-36.5); MEAN CORPUSCULAR VOLUME 89.4 fl (80.0-96.0); PLATELET COUNT, AUTOMATED 202 10^3/uL (150-450); RED BLOOD COUNT 3.58 10^6/uL (4.00-5.40); WHITE BLOOD COUNT 7.8 10^3/uL (4.0-10.0)
[2023-06-20 07:03] LABS: C REACTIVE PROTEIN QUANTITATIV 7.9 MG/DL (<1.0)
[2023-06-20 07:07] LABS: CALCIUM LEVEL 8.4 MG/DL (8.3-10.6); CREATININE FOR GFR 1.95 MG/DL (0.55-1.30); POTASSIUM SERUM 4.6 MMOL/L (3.5-5.1)
[2023-06-20] MEDS: SYMBICORT 160/4.5MCG INHALER 6GM INH SCH ×2 (07:24→19:16)
[2023-06-20] MEDS: TIOTROPIUM INHALER/CAPSULE (SPIRIVA) INH SCH (07:24)
[2023-06-20] MEDS: INSULIN LISPRO (NovoLOG) PER UNIT SC SCH ×4 (07:30→20:10)
[2023-06-20] MEDS: MULTIVITAMINS/MINERALS THERAP 1 TAB PO SCH (08:17)
[2023-06-20] MEDS: predniSONE 10MG TAB PO SCH (08:18)
[2023-06-20] MEDS: CARVedilol 12.5 MG TAB PO SCH ×2 (08:18→21:12)
[2023-06-20] MEDS: APIXABAN 2.5 MG TAB (ELIQUIS) PO SCH ×2 (08:18→21:13)
[2023-06-20] MEDS: MAGNESIUM OXIDE 400MG TAB (MAG-OX) PO SCH (08:18)
[2023-06-20] MEDS: amLODIPine 5 MG TAB PO SCH (08:19)
[2023-06-20] MEDS: POTASSIUM CHLORIDE 10MEQ SR TABLET PO SCH (08:19)
[2023-06-20] MEDS ORDERED: LR 1,000 ML IV SCH (09:00)
[2023-06-20] MEDS ORDERED: VANCOMYCIN HCL 1,000 MG, VIAL MATE ADAPTER 1 EACH in D5W 250 ML IV SCH (12:00)
[2023-06-20] MEDS: CEFTAROLINE FOSAMIL 300 MG in D5W 50 ML IV SCH (12:07)
[2023-06-20] MEDS: LEFLUNOMIDE 20 MG PO SCH (13:10)
[2023-06-20 14:00] VITALS: BP 139/70; TEMP 97.3; O2SAT 95
[2023-06-20] MEDS: OMEPRAZOLE 20MG CAP PO SCH (21:11)
[2023-06-20] MEDS: ATORVASTATIN 20 MG TAB PO SCH (21:12)
[2023-06-20] MEDS: ASCORBIC ACID 500 MG TAB PO SCH (21:13)
[2023-06-20] MEDS: ASPIRIN 81MG ENTERIC TABLET PO SCH (21:13)
[2023-06-20 22:00] VITALS: BP_SYST 133; BP_SYST 135; BP_DIAS 61; BP_DIAS 67; TEMP 97.5; O2SAT 92; O2SAT 97
[2023-06-21] MEDS: CEFTAROLINE FOSAMIL 300 MG in D5W 50 ML IV SCH (00:21)
[2023-06-21] MEDS: LEVOTHYROXINE 50MCG TABLET (0.05MG) PO SCH (05:19)
[2023-06-21 06:00] VITALS: BP 151/70; TEMP 97.5; O2SAT 99
[2023-06-21 06:36] LABS: HEMATOCRIT 32.7 % (36.0-47.0); HEMOGLOBIN 10.5 g/dl (12.0-15.5); MEAN CORPUSCULAR HEMOGLOBIN 29.2 pg (27.0-33.0); MEAN CORPUSCULAR HGB CONC 32.1 g/dl (32.0-36.5); MEAN CORPUSCULAR VOLUME 90.8 fl (80.0-96.0); PLATELET COUNT, AUTOMATED 216 10^3/uL (150-450); WHITE BLOOD COUNT 6.2 10^3/uL (4.0-10.0)
[2023-06-21 06:50] LABS: C REACTIVE PROTEIN QUANTITATIV 3.6 MG/DL (<1.0)
[2023-06-21 06:51] LABS: CALCIUM LEVEL 7.9 MG/DL (8.3-10.6); CREATININE FOR GFR 1.64 MG/DL (0.55-1.30); GLOMERULAR FILTRATION RATE 31.7 (>32); POTASSIUM SERUM 4.3 MMOL/L (3.5-5.1)
[2023-06-21] MEDS: SYMBICORT 160/4.5MCG INHALER 6GM INH SCH ×2 (07:22→19:15)
[2023-06-21] MEDS: TIOTROPIUM INHALER/CAPSULE (SPIRIVA) INH SCH (07:22)
[2023-06-21] MEDS: INSULIN LISPRO (NovoLOG) PER UNIT SC SCH ×4 (07:30→20:57)
[2023-06-21] MEDS: MAGNESIUM OXIDE 400MG TAB (MAG-OX) PO SCH (08:06)
[2023-06-21] MEDS: CARVedilol 12.5 MG TAB PO SCH ×2 (08:07→21:11)
[2023-06-21] MEDS: predniSONE 10MG TAB PO SCH (08:07)
[2023-06-21] MEDS: APIXABAN 2.5 MG TAB (ELIQUIS) PO SCH ×2 (08:07→21:10)
[2023-06-21] MEDS: MULTIVITAMINS/MINERALS THERAP 1 TAB PO SCH (08:07)
[2023-06-21] MEDS: amLODIPine 5 MG TAB PO SCH (08:07)
[2023-06-21] MEDS: POTASSIUM CHLORIDE 10MEQ SR TABLET PO SCH (08:08)
[2023-06-21] MEDS ORDERED: AMIODARONE 200 MG TAB (PACERONE) PO SCH (09:00)
[2023-06-21] MEDS ORDERED: CEPHALEXIN 500 MG CAP PO SCH (09:00)
[2023-06-21] MEDS: FUROSEMIDE 40 MG TAB PO SCH (09:14)
[2023-06-21 14:00] VITALS: BP 119/51; TEMP 97.9; O2SAT 95
[2023-06-21 19:19] VITALS: O2SAT 94
[2023-06-21 20:00] VITALS: BP 119/51; TEMP 97.5; O2SAT 90
[2023-06-21] MEDS: ASPIRIN 81MG ENTERIC TABLET PO SCH (21:09)
[2023-06-21] MEDS: OMEPRAZOLE 20MG CAP PO SCH (21:09)
[2023-06-21] MEDS: ATORVASTATIN 20 MG TAB PO SCH (21:09)
[2023-06-21] MEDS: ASCORBIC ACID 500 MG TAB PO SCH (21:10)
[2023-06-22 05:50] LABS: HEMATOCRIT 31.3 % (36.0-47.0); HEMOGLOBIN 10.1 g/dl (12.0-15.5); MEAN CORPUSCULAR HEMOGLOBIN 29.3 pg (27.0-33.0); MEAN CORPUSCULAR HGB CONC 32.3 g/dl (32.0-36.5); MEAN CORPUSCULAR VOLUME 90.7 fl (80.0-96.0); PLATELET COUNT, AUTOMATED 216 10^3/uL (150-450); RED BLOOD COUNT 3.45 10^6/uL (4.00-5.40); WHITE BLOOD COUNT 5.4 10^3/uL (4.0-10.0)
[2023-06-22 06:00] VITALS: BP 103/50; TEMP 97.5; O2SAT 92
[2023-06-22 06:10] LABS: C REACTIVE PROTEIN QUANTITATIV 1.8 MG/DL (<1.0)
[2023-06-22 06:12] LABS: CALCIUM LEVEL 7.8 MG/DL (8.3-10.6); CREATININE FOR GFR 1.7 MG/DL (0.55-1.30); GLOMERULAR FILTRATION RATE 30.4 (>32); POTASSIUM SERUM 4.4 MMOL/L (3.5-5.1)
[2023-06-22] MEDS: LEVOTHYROXINE 50MCG TABLET (0.05MG) PO SCH (06:25)
[2023-06-22] MEDS: TIOTROPIUM INHALER/CAPSULE (SPIRIVA) INH SCH (07:23)
[2023-06-22] MEDS: SYMBICORT 160/4.5MCG INHALER 6GM INH SCH (07:24)
[2023-06-22] MEDS: INSULIN LISPRO (NovoLOG) PER UNIT SC SCH ×3 (07:30→17:22)
[2023-06-22] MEDS ORDERED: CEPHALEXIN 500 MG CAP PO SCH (09:00)
[2023-06-22] MEDS ORDERED: HYDROXYCHLOROQUINE 200 MG TAB PO SCH (09:00)
[2023-06-22] MEDS: LEFLUNOMIDE 20 MG PO SCH (09:23)
[2023-06-22] MEDS: predniSONE 10MG TAB PO SCH (09:23)
[2023-06-22] MEDS: MULTIVITAMINS/MINERALS THERAP 1 TAB PO SCH (09:24)
[2023-06-22] MEDS: MAGNESIUM OXIDE 400MG TAB (MAG-OX) PO SCH (09:24)
[2023-06-22] MEDS: FUROSEMIDE 40 MG TAB PO SCH (09:24)
[2023-06-22] MEDS: APIXABAN 2.5 MG TAB (ELIQUIS) PO SCH (09:24)
[2023-06-22 09:28] VITALS: BP 126/66
[2023-06-22] MEDS: amLODIPine 5 MG TAB PO SCH (09:28)
[2023-06-22] MEDS: POTASSIUM CHLORIDE 10MEQ SR TABLET PO SCH (09:29)
[2023-06-22] MEDS: CARVedilol 12.5 MG TAB PO SCH (09:29)
[2023-06-22 14:00] VITALS: BP 118/62; TEMP 97.7; O2SAT 93
[2023-06-22] MEDS ORDERED: CEPH500C PO (17:32)
== END 2023-06-22 19:29 | disposition home or self-care (01) | DRG 603 ==
LOC: M ED 09:13 → M ED INP 14:21 → ENRESERV 16:47 → M MSPAV 17:39
PROVIDERS: ADMIT Internal Medicine; ATTEND Internal Medicine
DX: L02.413 Cutaneous abscess of right upper limb (principal); I50.32 Chronic diastolic (congestive) heart failure; N17.9 Acute kidney failure, unspecified; J96.11 Chronic respiratory failure with hypoxia; N18.32 Chronic kidney disease, stage 3b; I25.10 Atherosclerotic heart disease of native coronary artery without angina pectoris; I25.2 Old myocardial infarction; I48.91 Unspecified atrial fibrillation; E11.22 Type 2 diabetes mellitus with diabetic chronic kidney disease; M06.9 Rheumatoid arthritis, unspecified; E03.9 Hypothyroidism, unspecified; J44.9 Chronic obstructive pulmonary disease, unspecified; B95.61 Methicillin susceptible Staphylococcus aureus infection as the cause of diseases classified elsewhere; I27.20 Pulmonary hypertension, unspecified; E83.51 Hypocalcemia; Z66 Do not resuscitate; Z99.81 Dependence on supplemental oxygen; Z95.5 Presence of coronary angioplasty implant and graft; Z86.711 Personal history of pulmonary embolism; Z90.49 Acquired absence of other specified parts of digestive tract; Z98.41 Cataract extraction status, right eye; Z98.42 Cataract extraction status, left eye; Z87.891 Personal history of nicotine dependence; Z79.01 Long term (current) use of anticoagulants; Z79.84 Long term (current) use of oral hypoglycemic drugs; Z79.890 Hormone replacement therapy; Z79.52 Long term (current) use of systemic steroids; Z79.899 Other long term (current) drug therapy

== ENCOUNTER → 2023-10-06 | Outpatient (REF) | payer MEDICARE ==
[~2023-10-06] MED LIST changes: +BEVE1AER INH; +CEPH500C PO; -FLUT50SP17; +FLUTISP; +HUMI40IN2 SQ; +PRED20TA PO
[2023-10-06 13:51] LABS: BASO % 0.6 % (0.0-1.0); EOS # 0.1 10^3/uL (0.0-0.5); HEMATOCRIT 35.6 % (36.0-47.0); HEMOGLOBIN 11.4 g/dl (12.0-15.5); LYMPH # 0.4 10^3/uL (1.5-5.0); LYMPH % 5.8 % (24.0-44.0); MEAN CORPUSCULAR HEMOGLOBIN 30.2 pg (27.0-33.0); MEAN CORPUSCULAR VOLUME 94.4 fl (80.0-96.0); MONO # 0.5 10^3/uL (0.0-0.8); MONO % 8.5 % (2.0-8.0); NEUTROPHILS # 5.2 10^3/uL (1.5-8.5); PLATELET COUNT, AUTOMATED 244 10^3/uL (150-450); RED BLOOD COUNT 3.77 10^6/uL (4.00-5.40); WHITE BLOOD COUNT 6.4 10^3/uL (4.0-10.0)
[2023-10-06 14:20] LABS: THYROID STIMULATING HORMONE 2.107 uIU/ML (0.55-4.78)
[2023-10-06 14:21] LABS: ALBUMIN 3.6 G/DL (3.2-5.2); BILIRUBIN,TOTAL 0.8 MG/DL (0.3-1.2); CALCIUM LEVEL 8.4 MG/DL (8.3-10.6); CREATININE FOR GFR 1.32 MG/DL (0.55-1.30); GLOMERULAR FILTRATION RATE 40.7 (>32); POTASSIUM SERUM 5.3 MMOL/L (3.5-5.1); TOTAL PROTEIN 6.4 G/DL (5.7-8.2)
== END ==
LOC: M LABDRWAD 12:52
PROVIDERS: ATTEND Internal Medicine Cardiovascular Disease
DX: I48.0 Paroxysmal atrial fibrillation (principal); I34.0 Nonrheumatic mitral (valve) insufficiency; I11.0 Hypertensive heart disease with heart failure; I50.32 Chronic diastolic (congestive) heart failure

== ENCOUNTER → 2023-10-12 | Outpatient (CLI) | payer MEDICARE ==
[~2023-10-12] MED LIST changes: +HYDR-161 PO; -HYDR10TAB PO; -LEFL1TAB4 PO; +LEFL20TA15 PO
== END ==
LOC: M EKG 15:46
PROVIDERS: ATTEND Internal Medicine Cardiovascular Disease
DX: I44.0 Atrioventricular block, first degree (principal)

== ENCOUNTER → 2023-10-16 | Outpatient (CLI) | payer MEDICARE ==
[~2023-10-16] MED LIST changes: -HYDR-161 PO; +HYDR10TAB PO; +LEFL1TAB4 PO; -LEFL20TA15 PO
== END ==
LOC: M RAD 08:33
PROVIDERS: ATTEND Internal Medicine Nephrology
DX: I70.1 Atherosclerosis of renal artery (principal); N18.4 Chronic kidney disease, stage 4 (severe)

== ENCOUNTER → 2024-01-04 | Outpatient (REF) | payer MEDICARE ==
[~2024-01-04] MED LIST changes: +HYDR-161 PO; -HYDR10TAB PO; -LEFL1TAB4 PO; +LEFL20TA15 PO
[2024-01-04 14:24] LABS: BASO # 0.1 10^3/uL (0.0-0.2); BASO % 0.8 % (0.0-1.0); EOS # 0.2 10^3/uL (0.0-0.5); EOS % 2.9 % (0.0-3.0); HEMATOCRIT 35.3 % (36.0-47.0); HEMOGLOBIN 11.4 g/dl (12.0-15.5); LYMPH # 0.8 10^3/uL (1.5-5.0); LYMPH % 11.5 % (24.0-44.0); MEAN CORPUSCULAR HEMOGLOBIN 30.1 pg (27.0-33.0); MEAN CORPUSCULAR HGB CONC 32.3 g/dl (32.0-36.5); MEAN CORPUSCULAR VOLUME 93.1 fl (80.0-96.0); MONO # 0.7 10^3/uL (0.0-0.8); MONO % 10.6 % (2.0-8.0); NEUTROPHILS # 4.7 10^3/uL (1.5-8.5); NEUTROPHILS % 72.5 % (36.0-66.0); PLATELET COUNT, AUTOMATED 256 10^3/uL (150-450); RED BLOOD COUNT 3.79 10^6/uL (4.00-5.40); WHITE BLOOD COUNT 6.5 10^3/uL (4.0-10.0)
[2024-01-04 14:50] LABS: ALBUMIN 3.5 G/DL (3.2-5.2); BILIRUBIN,TOTAL 0.7 MG/DL (0.3-1.2); CALCIUM LEVEL 8.2 MG/DL (8.3-10.6); CREATININE FOR GFR 1.36 MG/DL (0.55-1.30); GLOMERULAR FILTRATION RATE 39.3 (>32); POTASSIUM SERUM 4.9 MMOL/L (3.5-5.1); TOTAL PROTEIN 6.1 G/DL (5.7-8.2)
[2024-01-04 14:53] LABS: THYROID STIMULATING HORMONE 4.438 uIU/ML (0.55-4.78)
== END ==
LOC: M LABDRWAD 13:05
PROVIDERS: ATTEND Internal Medicine Cardiovascular Disease
DX: I48.0 Paroxysmal atrial fibrillation (principal); I50.32 Chronic diastolic (congestive) heart failure; I34.0 Nonrheumatic mitral (valve) insufficiency; I11.0 Hypertensive heart disease with heart failure; I27.81 Cor pulmonale (chronic)

== ENCOUNTER → 2024-01-21 | Outpatient (REF) | payer MEDICARE ==
[2024-01-21 13:16] LABS: ALBUMIN 3.4 G/DL (3.2-5.2); CALCIUM LEVEL 8.4 MG/DL (8.3-10.6); CREATININE FOR GFR 1.79 MG/DL (0.55-1.30); GLOMERULAR FILTRATION RATE 28.7 (>32); PHOSPHORUS LEVEL 3.4 MG/DL (2.4-5.1); POTASSIUM SERUM 4.6 MMOL/L (3.5-5.1)
== END ==
LOC: M LABDRWAD 12:41
PROVIDERS: ATTEND Internal Medicine Cardiovascular Disease
DX: I50.33 Acute on chronic diastolic (congestive) heart failure (principal)

== ENCOUNTER → 2024-02-04 | Outpatient (CLI) | payer MEDICARE | LOC: M ADAMS 09:05 | PROVIDERS: ATTEND Internal Medicine Pulmonary Disease | DX: J84.10 Pulmonary fibrosis, unspecified (principal) ==

== ENCOUNTER → 2024-02-24 | Outpatient (REF) | payer MEDICARE ==
[2024-02-24 17:28] LABS: ATYPICAL LYMPH 1 % (0-5); EOSINOPHILS 2 % (0-3); LYMPHOCYTES 5 % (16-44); MONOCYTES 3 % (0-5); NEUTROPHILS 84 % (28-66); PLATELET ESTIMATE NORMAL (NORMAL)
== END ==
LOC: M LAB REF 16:21
PROVIDERS: ATTEND Internal Medicine
DX: D72.9 Disorder of white blood cells, unspecified (principal)

== ENCOUNTER → 2024-02-24 | Outpatient (CLI) | payer MEDICARE | LOC: M ADAMS 15:04 | PROVIDERS: ATTEND Internal Medicine | DX: M54.50 Low back pain, unspecified (principal); M54.14 Radiculopathy, thoracic region; D72.9 Disorder of white blood cells, unspecified ==

== ENCOUNTER → 2024-02-29 | Outpatient (CLI) | payer MEDICARE ==
[2024-02-29 10:32] LABS: ALBUMIN 3.5 G/DL (3.2-5.2); CALCIUM LEVEL 8.4 MG/DL (8.3-10.6); CREATININE FOR GFR 1.61 MG/DL (0.55-1.30); GLOMERULAR FILTRATION RATE 32.3 (>32); PHOSPHORUS LEVEL 3.4 MG/DL (2.4-5.1); POTASSIUM SERUM 4.1 MMOL/L (3.5-5.1)
== END ==
LOC: M LAB 08:18
PROVIDERS: ATTEND Internal Medicine Cardiovascular Disease
DX: I50.33 Acute on chronic diastolic (congestive) heart failure (principal)

== ENCOUNTER 2024-03-28 10:30 | Emergency (ER) | payer MEDICARE ==
[~2024-03-28] VITALS: Ht 154.9 cm; Wt 56.5 kg
[2024-03-28 10:31] VITALS: BP 139/65; TEMP 96.2; O2SAT 95
[2024-03-28 13:05] LABS: BASO % 0.5 % (0.0-1.0); EOS % 0.7 % (0.0-3.0); HEMATOCRIT 38.8 % (36.0-47.0); HEMOGLOBIN 12.5 g/dl (12.0-15.5); LYMPH # 0.4 10^3/uL (1.5-5.0); LYMPH % 6.8 % (24.0-44.0); MEAN CORPUSCULAR HEMOGLOBIN 30.5 pg (27.0-33.0); MEAN CORPUSCULAR HGB CONC 32.2 g/dl (32.0-36.5); MEAN CORPUSCULAR VOLUME 94.6 fl (80.0-96.0); MONO # 0.2 10^3/uL (0.0-0.8); MONO % 3.6 % (2.0-8.0); NEUTROPHILS # 5.2 10^3/uL (1.5-8.5); NEUTROPHILS % 86.7 % (36.0-66.0); PLATELET COUNT, AUTOMATED 219 10^3/uL (150-450)
[2024-03-28 13:19] LABS: ERYTHROCYTE SEDIMENTATION RATE 17 mm/hr (0-30)
[2024-03-28 13:28] LABS: C REACTIVE PROTEIN QUANTITATIV < 0.40 MG/DL (<1.0)
[2024-03-28 13:29] LABS: BLOOD UREA NITROGEN 37 MG/DL (9-23); CALCIUM LEVEL 8.5 MG/DL (8.3-10.6); CARBON DIOXIDE LEVEL 27 MMOL/L (20-31); CHLORIDE LEVEL 103 MMOL/L (98-107); CREATININE FOR GFR 1.42 MG/DL (0.55-1.30); GLOMERULAR FILTRATION RATE 37.3 (>32); GLUCOSE, FASTING 311 MG/DL (74-106); POTASSIUM SERUM 4.9 MMOL/L (3.5-5.1); SODIUM LEVEL 133 MMOL/L (136-145)
[2024-03-28] MEDS ORDERED: DOXY-323 PO (15:28)
[2024-03-28] MEDS: DOXYCYCLINE HYCLATE 100MG TABLET PO ONE (15:29)
== END 2024-03-28 15:36 | disposition home or self-care (01) ==
LOC: M ED 10:30
DX: L03.012 Cellulitis of left finger (principal); Z79.51 Long term (current) use of inhaled steroids; Z79.1 Long term (current) use of non-steroidal anti-inflammatories (NSAID); Z79.84 Long term (current) use of oral hypoglycemic drugs; Z79.810 Long term (current) use of selective estrogen receptor modulators (SERMs); Z79.52 Long term (current) use of systemic steroids; Z79.899 Other long term (current) drug therapy

== ENCOUNTER 2024-04-29 21:44 | Inpatient (IN) | payer MEDICARE ==
[~2024-04-29] VITALS: Ht 157.5 cm; Wt 55.0 kg
[~2024-04-29 21:44] MED LIST changes: +DOXY-323 PO
[2024-04-29 23:35] LABS: HEMATOCRIT 38.5 % (36.0-47.0); MEAN CORPUSCULAR HEMOGLOBIN 29.7 pg (27.0-33.0); MEAN CORPUSCULAR HGB CONC 31.2 g/dl (32.0-36.5); MEAN CORPUSCULAR VOLUME 95.3 fl (80.0-96.0); PLATELET COUNT, AUTOMATED 215 10^3/uL (150-450); RED BLOOD COUNT 4.04 10^6/uL (4.00-5.40); WHITE BLOOD COUNT 7.8 10^3/uL (4.0-10.0)
[2024-04-30 00:01] LABS: ALBUMIN 3.5 G/DL (3.2-5.2); BILIRUBIN,DIRECT 0.4 MG/DL (<0.4); CALCIUM LEVEL 8.2 MG/DL (8.3-10.6); CREATININE FOR GFR 1.69 MG/DL (0.55-1.30); GLOMERULAR FILTRATION RATE 30.5 (>32); POTASSIUM SERUM 6.2 MMOL/L (3.5-5.1)
[2024-04-30] MEDS: CALCIUM GLUCONATE 1,000MG/10ML VIAL (100MG/ML) IV ONE (01:15)
[2024-04-30] MEDS: PATIROMER SORBITEX CALCIUM 8.4 GM POWDER PACKET (VELTASSA) PO ONE (01:15)
[2024-04-30] MEDS: ONDANSETRON 4MG 2ML VIAL IV ONE (01:15)
[2024-04-30] MEDS: NS 500 ML IV ONE ×2 (01:16→05:30)
[2024-04-30] MEDS: HumuLIN R (REGULAR) INSULIN (NovoLIN R) **100U/ML** PER UNIT IV ONE (01:23)
[2024-04-30] MEDS ORDERED: DEXTROSE 50% 50ML SYRINGE As Ordered ONE (01:25)
[2024-04-30 03:14] LABS: CALCIUM LEVEL 8.4 MG/DL (8.3-10.6); CREATININE FOR GFR 1.5 MG/DL (0.55-1.30); GLOMERULAR FILTRATION RATE 35.1 (>32); POTASSIUM SERUM 4.7 MMOL/L (3.5-5.1)
[2024-04-30 05:39] LABS: CK-MB VALUE MASS 1.4 NG/ML (<3.6)
[2024-04-30] MEDS ORDERED: LEVOTHYROXINE 50MCG TABLET (0.05MG) PO SCH (06:00)
[2024-04-30] MEDS ORDERED: TORS10TA3 PO (07:26)
[2024-04-30] MEDS ORDERED: PRED10TA2 PO (07:26)
[2024-04-30] MEDS ORDERED: POTA10TA67 PO (07:26)
[2024-04-30] MEDS ORDERED: HOME MED LIST COMPLETE! XX SCH (07:30)
[2024-04-30] MEDS ORDERED: CALCIUM CARBONATE 500 MG CHEW U/D PO PRN (09:50)
[2024-04-30] MEDS: NS 1,000 ML IV ONE (09:51)
[2024-04-30 10:47] LABS: CK-MB VALUE MASS 1.4 NG/ML (<3.6)
[2024-04-30 10:51] LABS: MB/CK RELATIVE INDEX 1.97 (< OR =4)
[2024-04-30] MEDS: LEVOTHYROXINE 50MCG TABLET (0.05MG) PO SCH (10:53)
[2024-04-30] MEDS: CARVedilol 12.5 MG TAB PO SCH (10:53)
[2024-04-30] MEDS: ISOSORBIDE MON. (IMDUR) 30MG XR TAB PO SCH (10:54)
[2024-04-30] MEDS: predniSONE 10MG TAB PO SCH (10:54)
[2024-04-30] MEDS: APIXABAN 2.5 MG TAB (ELIQUIS) PO SCH (10:54)
[2024-04-30] MEDS: SITagliptin 50 MG TAB (JANUVIA) PO SCH (10:55)
[2024-04-30] MEDS: AMIODARONE 200 MG TAB (PACERONE) PO SCH (10:55)
[2024-04-30] MEDS: MULTIVITAMINS/MINERALS THERAP 1 TAB PO SCH (10:55)
[2024-04-30 11:11] LABS: ALBUMIN 3.1 G/DL (3.2-5.2); BILIRUBIN,TOTAL 0.7 MG/DL (0.3-1.2); CALCIUM LEVEL 8.5 MG/DL (8.3-10.6); CREATININE FOR GFR 1.33 MG/DL (0.55-1.30); FREE T4 1.15 NG/DL (0.89-1.76); GLOMERULAR FILTRATION RATE 40.3 (>32); POTASSIUM SERUM 4.5 MMOL/L (3.5-5.1); THYROID STIMULATING HORMONE 1.369 uIU/ML (0.55-4.78); TOTAL PROTEIN 5.4 G/DL (5.7-8.2)
[2024-04-30 15:01] VITALS: BP 144/67; TEMP 97; O2SAT 92
[2024-04-30 19:21] VITALS: BP 140/62; TEMP 97.2; O2SAT 93
[2024-04-30] MEDS: OMEPRAZOLE 20MG CAP PO SCH (20:29)
[2024-04-30] MEDS: MAGNESIUM OXIDE 400MG TAB (MAG-OX) PO SCH (20:29)
[2024-04-30] MEDS: ASCORBIC ACID 500 MG TAB PO SCH (20:30)
[2024-04-30 23:47] VITALS: BP 137/66; TEMP 97.4; O2SAT 95
[2024-05-01] VITALS (7 sets, daily range): BP systolic 107–162; BP diastolic 58–74; TEMP 97.2–98; O2SAT 93–96
[2024-05-01 08:18] LABS: BASO # 0.1 10^3/uL (0.0-0.2); BASO % 1.2 % (0.0-1.0); EOS # 0.1 10^3/uL (0.0-0.5); EOS % 2.3 % (0.0-3.0); HEMATOCRIT 35.7 % (36.0-47.0); HEMOGLOBIN 11.2 g/dl (12.0-15.5); LYMPH # 0.6 10^3/uL (1.5-5.0); LYMPH % 13.9 % (24.0-44.0); MEAN CORPUSCULAR HEMOGLOBIN 29.9 pg (27.0-33.0); MEAN CORPUSCULAR HGB CONC 31.4 g/dl (32.0-36.5); MEAN CORPUSCULAR VOLUME 95.2 fl (80.0-96.0); MONO # 0.4 10^3/uL (0.0-0.8); MONO % 9.7 % (2.0-8.0); NEUTROPHILS # 3.1 10^3/uL (1.5-8.5); NEUTROPHILS % 71.5 % (36.0-66.0); PLATELET COUNT, AUTOMATED 176 10^3/uL (150-450); RED BLOOD COUNT 3.75 10^6/uL (4.00-5.40); WHITE BLOOD COUNT 4.3 10^3/uL (4.0-10.0)
[2024-05-01 08:54] LABS: BILIRUBIN,TOTAL 0.7 MG/DL (0.3-1.2); CALCIUM LEVEL 8.1 MG/DL (8.3-10.6); CK-MB VALUE MASS 1.5 NG/ML (<3.6); CREATININE FOR GFR 1.24 MG/DL (0.55-1.30); GLOMERULAR FILTRATION RATE 43.7 (>32); MB/CK RELATIVE INDEX 3.4 (< OR =4); POTASSIUM SERUM 4.1 MMOL/L (3.5-5.1)
[2024-05-01] MEDS: ONDANSETRON 4MG 2ML VIAL IV ONE (09:19)
[2024-05-01] MEDS: LEFLUNOMIDE 20MG TABLET (PATIENT'S OWN MED) PO SCH (09:19)
[2024-05-01] MEDS: CALCIUM GLUCONATE 1,000 MG in D5W MINI-BAG PLUS 100 ML IV ONE (13:20)
[2024-05-01] MEDS: CALCIUM/VITAMIN D 500 MG TAB PO SCH (13:20)
[2024-05-01] MEDS: ALBUTEROL 90 MCG/ACT 8GM HFA INHALER INH PRN (15:55)
[2024-05-02 03:04] VITALS: BP 132/69; TEMP 97; O2SAT 97
[2024-05-02 06:17] LABS: BASO % 0.8 % (0.0-1.0); EOS # 0.1 10^3/uL (0.0-0.5); EOS % 1.6 % (0.0-3.0); HEMATOCRIT 36.1 % (36.0-47.0); HEMOGLOBIN 11.3 g/dl (12.0-15.5); LYMPH # 0.5 10^3/uL (1.5-5.0); LYMPH % 10.5 % (24.0-44.0); MEAN CORPUSCULAR HEMOGLOBIN 29.5 pg (27.0-33.0); MEAN CORPUSCULAR HGB CONC 31.3 g/dl (32.0-36.5); MEAN CORPUSCULAR VOLUME 94.3 fl (80.0-96.0); MONO # 0.5 10^3/uL (0.0-0.8); MONO % 9.9 % (2.0-8.0); NEUTROPHILS # 3.9 10^3/uL (1.5-8.5); PLATELET COUNT, AUTOMATED 163 10^3/uL (150-450); RED BLOOD COUNT 3.83 10^6/uL (4.00-5.40); WHITE BLOOD COUNT 5.1 10^3/uL (4.0-10.0)
[2024-05-02 06:41] LABS: CALCIUM LEVEL 8.3 MG/DL (8.3-10.6); CREATININE FOR GFR 1.22 MG/DL (0.55-1.30); GLOMERULAR FILTRATION RATE 44.5 (>32); POTASSIUM SERUM 4.2 MMOL/L (3.5-5.1)
[2024-05-02 07:42] VITALS: BP 154/67; TEMP 97; O2SAT 91
[2024-05-02] MEDS: TIOTROPIUM INHALER/CAPSULE (SPIRIVA) INH SCH (08:00)
[2024-05-02] MEDS: FORMOTEROL FUMARATE 20 MCG/2 ML INHALATION SOLUTION (PERFOROMIST) INH SCH (08:00)
[2024-05-02] MEDS ORDERED: ENTER DRUG NAME HERE (PATIENT'S OWN MED) INH SCH (09:00)
[2024-05-02] MEDS: HYDROXYCHLOROQUINE 200 MG TAB PO SCH (09:16)
[2024-05-02] MEDS: SUCRALFATE SUSP 1GM/10ML UD PO ONE (09:17)
[2024-05-02] MEDS: ISOSORBIDE MON. (IMDUR) 30MG XR TAB PO SCH (09:17)
[2024-05-02] MEDS: FUROSEMIDE 40MG/4ML VIAL IV ONE (09:18)
[2024-05-02 11:47] VITALS: BP 123/58
[2024-05-02 16:19] VITALS: BP 128/62; TEMP 97.6; O2SAT 91
[2024-05-02 19:00] VITALS: BP 137/64; TEMP 97.6; O2SAT 92
[2024-05-03 03:27] VITALS: BP 144/64; TEMP 97.5; O2SAT 98
[2024-05-03 07:44] VITALS: BP 112/60; TEMP 97.1; O2SAT 97
[2024-05-03] MEDS: TORSEMIDE 20 MG TAB PO SCH (08:21)
[2024-05-03 09:00] VITALS: BP 112/60
== END 2024-05-03 11:20 | disposition home or self-care (01) | DRG 640 ==
LOC: M ED 21:44 → M ED INP 04-30 09:39 → M PCU 04-30 14:48
PROVIDERS: ADMIT General Practice; ATTEND Preventive Medicine Undersea and Hyperbaric Medicine
PROC: B246ZZZ Ultrasonography of Right and Left Heart (ICD-10-PCS; principal; 2024-05-01)
DX: E86.0 Dehydration (principal); I50.33 Acute on chronic diastolic (congestive) heart failure; J96.11 Chronic respiratory failure with hypoxia; I13.0 Hypertensive heart and chronic kidney disease with heart failure and stage 1 through stage 4 chronic kidney disease, or unspecified chronic kidney disease; I47.20 Ventricular tachycardia, unspecified; N18.32 Chronic kidney disease, stage 3b; I25.10 Atherosclerotic heart disease of native coronary artery without angina pectoris; J44.9 Chronic obstructive pulmonary disease, unspecified; I25.2 Old myocardial infarction; I48.0 Paroxysmal atrial fibrillation; E11.22 Type 2 diabetes mellitus with diabetic chronic kidney disease; M06.9 Rheumatoid arthritis, unspecified; E03.9 Hypothyroidism, unspecified; H91.93 Unspecified hearing loss, bilateral; J84.10 Pulmonary fibrosis, unspecified; I44.0 Atrioventricular block, first degree; I08.0 Rheumatic disorders of both mitral and aortic valves; K29.70 Gastritis, unspecified, without bleeding; R00.1 Bradycardia, unspecified; K21.9 Gastro-esophageal reflux disease without esophagitis; I25.5 Ischemic cardiomyopathy; E87.5 Hyperkalemia; I95.1 Orthostatic hypotension; I27.20 Pulmonary hypertension, unspecified; Z99.81 Dependence on supplemental oxygen; Z86.711 Personal history of pulmonary embolism; Z90.49 Acquired absence of other specified parts of digestive tract; Z98.42 Cataract extraction status, left eye; Z98.41 Cataract extraction status, right eye; Z95.5 Presence of coronary angioplasty implant and graft; Z87.891 Personal history of nicotine dependence; Z79.01 Long term (current) use of anticoagulants; Z79.890 Hormone replacement therapy; Z79.899 Other long term (current) drug therapy; Z79.52 Long term (current) use of systemic steroids

== ENCOUNTER → 2024-05-10 | Outpatient (REF) | payer MEDICARE ==
[~2024-05-10] MED LIST changes: +POTA10TA67 PO; +PRED10TA2 PO; +TORS10TA3 PO
== END ==
LOC: M LAB REF 13:51
PROVIDERS: ATTEND Internal Medicine
DX: I50.33 Acute on chronic diastolic (congestive) heart failure (principal)

== ENCOUNTER 2024-05-24 12:44 | Inpatient (IN) | payer MEDICARE ==
[~2024-05-24] VITALS: Ht 157.5 cm; Wt 52.9 kg
[2024-05-24 13:51] LABS: HEMATOCRIT 33.8 % (36.0-47.0); HEMOGLOBIN 10.9 g/dl (12.0-15.5); MEAN CORPUSCULAR HEMOGLOBIN 29.5 pg (27.0-33.0); MEAN CORPUSCULAR HGB CONC 32.2 g/dl (32.0-36.5); MEAN CORPUSCULAR VOLUME 91.4 fl (80.0-96.0); PLATELET COUNT, AUTOMATED 236 10^3/uL (150-450)
[2024-05-24 13:52] LABS: ALBUMIN 2.8 G/DL (3.2-5.2); BILIRUBIN,DIRECT 0.4 MG/DL (<0.4); BILIRUBIN,TOTAL 0.8 MG/DL (0.3-1.2); CALCIUM LEVEL 8.1 MG/DL (8.3-10.6); CREATININE FOR GFR 1.24 MG/DL (0.55-1.30); GLOMERULAR FILTRATION RATE 43.7 (>32); POTASSIUM SERUM 3.9 MMOL/L (3.5-5.1); TOTAL PROTEIN 5.8 G/DL (5.7-8.2)
[2024-05-24] MEDS ORDERED: ISOVUE-370 76% 100ML VIAL As Ordered ONE (13:58)
[2024-05-24 14:16] LABS: THYROID STIMULATING HORMONE 0.831 uIU/ML (0.55-4.78)
[2024-05-24 14:47] LABS: LYMPHOCYTES 3 % (16-44); MONOCYTES 7 % (0-5); NEUTROPHILS 85 % (28-66); PLATELET ESTIMATE NORMAL (NORMAL)
[2024-05-24] MEDS: FUROSEMIDE 20MG/2ML VIAL IV ONE ×2 (17:20→22:30)
[2024-05-24] MEDS ORDERED: **NOTE PATIENT COMMENT** MISC XX SCH (18:40)
[2024-05-24] MEDS ORDERED: FERR1TAB8 PO (19:14)
[2024-05-24] MEDS ORDERED: JARD1TAB PO (19:14)
[2024-05-24] MEDS ORDERED: THERTAB52 PO (19:14)
[2024-05-24] MEDS ORDERED: HOME MED LIST COMPLETE! XX SCH (19:20)
[2024-05-24] MEDS ORDERED: OMEPRAZOLE 20MG CAP PO SCH (21:00)
[2024-05-24] MEDS: IPRATROPIUM 0.5MG/ALBUTEROL 2.5MG INH SOL UD 3ML (DUONEB) NEB SCH (21:15)
[2024-05-24] MEDS: methylPREDNISolone 40MG 1ML VIAL IV SCH (22:29)
[2024-05-24] MEDS ORDERED: ALBUTEROL 90 MCG/ACT 8GM HFA INHALER INH PRN (22:45)
[2024-05-24] MEDS ORDERED: amLODIPine 5 MG TAB PO PRN ×2 (22:45→23:10)
[2024-05-24] MEDS ORDERED: GLUCAGON INJ 1MG VIAL SC PRN (22:55)
[2024-05-24] MEDS ORDERED: GLUCOSE 4 GM CHEW PO PRN (22:55)
[2024-05-24] MEDS ORDERED: DEXTROSE 50% 50ML SYRINGE IV PRN (22:55)
[2024-05-25 00:50] VITALS: BP 117/67; TEMP 97.7; O2SAT 94
[2024-05-25] MEDS: LEVOTHYROXINE 50MCG TABLET (0.05MG) PO SCH (01:06)
[2024-05-25] MEDS: ISOSORBIDE MON. (IMDUR) 30MG XR TAB PO SCH (01:06)
[2024-05-25] MEDS: APIXABAN 2.5 MG TAB (ELIQUIS) PO SCH (01:07)
[2024-05-25] MEDS: OMEPRAZOLE 20MG CAP PO SCH (01:07)
[2024-05-25 04:27] VITALS: BP 119/67; TEMP 97.7; O2SAT 96
[2024-05-25 06:11] LABS: HEMATOCRIT 34.9 % (36.0-47.0); HEMOGLOBIN 11.1 g/dl (12.0-15.5); MEAN CORPUSCULAR HEMOGLOBIN 29.1 pg (27.0-33.0); MEAN CORPUSCULAR HGB CONC 31.8 g/dl (32.0-36.5); MEAN CORPUSCULAR VOLUME 91.6 fl (80.0-96.0); PLATELET COUNT, AUTOMATED 211 10^3/uL (150-450); RED BLOOD COUNT 3.81 10^6/uL (4.00-5.40); WHITE BLOOD COUNT 15.2 10^3/uL (4.0-10.0)
[2024-05-25 06:34] LABS: CALCIUM LEVEL 8.2 MG/DL (8.3-10.6); CREATININE FOR GFR 1.32 MG/DL (0.55-1.30); GLOMERULAR FILTRATION RATE 40.6 (>32); MAGNESIUM LEVEL 2.2 MG/DL (1.8-2.4); POTASSIUM SERUM 3.7 MMOL/L (3.5-5.1)
[2024-05-25] MEDS: FUROSEMIDE 40MG/4ML VIAL IV SCH (08:16)
[2024-05-25] MEDS: INSULIN LISPRO (NovoLOG) PER UNIT SC SCH ×2 (08:16→20:47)
[2024-05-25] MEDS: ASCORBIC ACID 500 MG TAB PO SCH (08:18)
[2024-05-25] MEDS: AMIODARONE 200 MG TAB (PACERONE) PO SCH (08:18)
[2024-05-25] MEDS: FERROUS SULFATE 325MG TAB PO SCH (08:18)
[2024-05-25] MEDS: HYDROXYCHLOROQUINE 200 MG TAB PO SCH (08:18)
[2024-05-25] MEDS ORDERED: predniSONE 10MG TAB PO SCH (09:00)
[2024-05-25] MEDS ORDERED: SPIRONOLACTONE 12.5MG PER 1/2 TABLET PO SCH (09:00)
[2024-05-25] MEDS: FUROSEMIDE 20MG/2ML VIAL IV SCH (17:46)
[2024-05-25 20:17] VITALS: BP 140/75; TEMP 97.5; O2SAT 95
[2024-05-25 20:23] VITALS: O2SAT 94
[2024-05-26 04:48] VITALS: BP 136/80; TEMP 97.7; O2SAT 88
[2024-05-26] MEDS: IPRATROPIUM 0.5MG/ALBUTEROL 2.5MG INH SOL UD 3ML (DUONEB) NEB PRN (05:06)
[2024-05-26 06:15] LABS: HEMOGLOBIN 10.7 g/dl (12.0-15.5); MEAN CORPUSCULAR HEMOGLOBIN 29.5 pg (27.0-33.0); MEAN CORPUSCULAR HGB CONC 32.4 g/dl (32.0-36.5); MEAN CORPUSCULAR VOLUME 90.9 fl (80.0-96.0); PLATELET COUNT, AUTOMATED 285 10^3/uL (150-450); RED BLOOD COUNT 3.63 10^6/uL (4.00-5.40); WHITE BLOOD COUNT 18.4 10^3/uL (4.0-10.0)
[2024-05-26 06:30] LABS: CALCIUM LEVEL 7.8 MG/DL (8.3-10.6); CREATININE FOR GFR 1.53 MG/DL (0.55-1.30); GLOMERULAR FILTRATION RATE 34.3 (>32); MAGNESIUM LEVEL 2.2 MG/DL (1.8-2.4); POTASSIUM SERUM 3.3 MMOL/L (3.5-5.1)
[2024-05-26] MEDS: POTASSIUM CHLORIDE 10% LIQ 20MEQ/15ML UDC PO ONE (08:12)
[2024-05-26] MEDS ORDERED: TORSEMIDE 20 MG TAB PO SCH (09:00)
[2024-05-26 12:45] VITALS: BP 142/82; TEMP 98.1; O2SAT 90
[2024-05-26 20:02] VITALS: O2SAT 93
[2024-05-26 21:43] VITALS: BP 131/74; TEMP 97.7; O2SAT 91
[2024-05-27 00:41] VITALS: O2SAT 97
[2024-05-27 04:48] VITALS: TEMP 97.9; O2SAT 90
[2024-05-27 06:25] LABS: HEMATOCRIT 33.5 % (36.0-47.0); HEMOGLOBIN 10.7 g/dl (12.0-15.5); MEAN CORPUSCULAR HGB CONC 31.9 g/dl (32.0-36.5); MEAN CORPUSCULAR VOLUME 90.8 fl (80.0-96.0); PLATELET COUNT, AUTOMATED 280 10^3/uL (150-450); RED BLOOD COUNT 3.69 10^6/uL (4.00-5.40); WHITE BLOOD COUNT 15.1 10^3/uL (4.0-10.0)
[2024-05-27 06:54] LABS: CALCIUM LEVEL 7.6 MG/DL (8.3-10.6); CREATININE FOR GFR 1.54 MG/DL (0.55-1.30); MAGNESIUM LEVEL 2.1 MG/DL (1.8-2.4); POTASSIUM SERUM 3.9 MMOL/L (3.5-5.1)
[2024-05-27 12:25] VITALS: BP 145/76; TEMP 97.7; O2SAT 93
[2024-05-27] MEDS: TORSEMIDE 20 MG TAB PO SCH (17:22)
[2024-05-27 20:19] VITALS: BP 139/79; TEMP 97.7; O2SAT 95
[2024-05-28] MEDS: CALCIUM CARBONATE 500 MG CHEW U/D PO PRN (01:11)
[2024-05-28 03:50] VITALS: BP 138/75; TEMP 97.7; O2SAT 88
[2024-05-28 07:06] LABS: HEMATOCRIT 31.8 % (36.0-47.0); HEMOGLOBIN 10.4 g/dl (12.0-15.5); MEAN CORPUSCULAR HEMOGLOBIN 29.1 pg (27.0-33.0); MEAN CORPUSCULAR HGB CONC 32.7 g/dl (32.0-36.5); MEAN CORPUSCULAR VOLUME 89.1 fl (80.0-96.0); PLATELET COUNT, AUTOMATED 293 10^3/uL (150-450); RED BLOOD COUNT 3.57 10^6/uL (4.00-5.40); WHITE BLOOD COUNT 14.7 10^3/uL (4.0-10.0)
[2024-05-28 07:29] LABS: CALCIUM LEVEL 7.7 MG/DL (8.3-10.6); CREATININE FOR GFR 1.4 MG/DL (0.55-1.30); MAGNESIUM LEVEL 2.1 MG/DL (1.8-2.4); POTASSIUM SERUM 3.9 MMOL/L (3.5-5.1)
[2024-05-28 09:19] VITALS: BP 137/74
[2024-05-28] MEDS ORDERED: PILL CUTTER 1 EACH XX PRN (09:20)
[2024-05-28] MEDS: SITagliptin 50 MG TAB (JANUVIA) PO SCH (09:26)
[2024-05-28] MEDS: predniSONE 20 MG TAB PO SCH (09:26)
[2024-05-28 12:46] VITALS: BP 139/74; TEMP 97.7; O2SAT 90
[2024-05-28 19:50] VITALS: BP 143/75; TEMP 97.9; O2SAT 91
[2024-05-28 20:00] VITALS: BP 143/75; TEMP 97.9; O2SAT 97
[2024-05-28] MEDS: INSULIN LISPRO (NovoLOG) PER UNIT SC ONE (20:46)
[2024-05-29 03:42] VITALS: BP 141/76; TEMP 98.4; O2SAT 92
[2024-05-29 04:00] VITALS: BP 141/76; TEMP 98.4; O2SAT 92
[2024-05-29 07:16] LABS: HEMATOCRIT 32.3 % (36.0-47.0); HEMOGLOBIN 10.5 g/dl (12.0-15.5); MEAN CORPUSCULAR HEMOGLOBIN 28.8 pg (27.0-33.0); MEAN CORPUSCULAR HGB CONC 32.5 g/dl (32.0-36.5); MEAN CORPUSCULAR VOLUME 88.7 fl (80.0-96.0); PLATELET COUNT, AUTOMATED 261 10^3/uL (150-450); RED BLOOD COUNT 3.64 10^6/uL (4.00-5.40); WHITE BLOOD COUNT 13.9 10^3/uL (4.0-10.0)
[2024-05-29 07:51] LABS: CALCIUM LEVEL 7.7 MG/DL (8.3-10.6); CREATININE FOR GFR 1.28 MG/DL (0.55-1.30); GLOMERULAR FILTRATION RATE 42.1 (>32); POTASSIUM SERUM 3.6 MMOL/L (3.5-5.1)
[2024-05-29 08:43] VITALS: BP 136/83
[2024-05-29 13:23] VITALS: BP 141/74; TEMP 97.5; O2SAT 90
[2024-05-29 20:02] VITALS: BP 141/74; TEMP 97.3; O2SAT 92
[2024-05-29] MEDS: traMADol 50 MG TAB PO PRN (21:14)
[2024-05-29] MEDS: LORazepam 0.5 MG TAB PO PRN (21:15)
[2024-05-30 03:59] VITALS: BP 135/75; TEMP 98.1; O2SAT 97
[2024-05-30 04:32] VITALS: BP 135/75; TEMP 98.1; O2SAT 97
[2024-05-30 06:12] LABS: HEMATOCRIT 32.9 % (36.0-47.0); HEMOGLOBIN 10.6 g/dl (12.0-15.5); MEAN CORPUSCULAR HEMOGLOBIN 29.1 pg (27.0-33.0); MEAN CORPUSCULAR HGB CONC 32.2 g/dl (32.0-36.5); MEAN CORPUSCULAR VOLUME 90.4 fl (80.0-96.0); PLATELET COUNT, AUTOMATED 273 10^3/uL (150-450); RED BLOOD COUNT 3.64 10^6/uL (4.00-5.40); WHITE BLOOD COUNT 15.7 10^3/uL (4.0-10.0)
[2024-05-30 06:35] LABS: CALCIUM LEVEL 7.9 MG/DL (8.3-10.6); CREATININE FOR GFR 1.21 MG/DL (0.55-1.30); GLOMERULAR FILTRATION RATE 44.9 (>32); POTASSIUM SERUM 3.7 MMOL/L (3.5-5.1)
[2024-05-30 09:03] VITALS: BP 150/85
[2024-05-30 12:00] VITALS: BP 142/64; TEMP 96.8; O2SAT 95
[2024-05-30] MEDS: TORSEMIDE 20 MG TAB PO SCH (14:04)
[2024-05-30 20:11] VITALS: BP 148/82; TEMP 97.5; O2SAT 93
[2024-05-30 20:32] VITALS: O2SAT 94
[2024-05-31 04:19] VITALS: BP 148/86; TEMP 97.7; O2SAT 90
[2024-05-31 06:10] LABS: HEMATOCRIT 35.1 % (36.0-47.0); HEMOGLOBIN 11.3 g/dl (12.0-15.5); MEAN CORPUSCULAR HEMOGLOBIN 28.8 pg (27.0-33.0); MEAN CORPUSCULAR HGB CONC 32.2 g/dl (32.0-36.5); MEAN CORPUSCULAR VOLUME 89.3 fl (80.0-96.0); PLATELET COUNT, AUTOMATED 285 10^3/uL (150-450); RED BLOOD COUNT 3.93 10^6/uL (4.00-5.40); WHITE BLOOD COUNT 18.9 10^3/uL (4.0-10.0)
[2024-05-31 06:44] LABS: CALCIUM LEVEL 7.9 MG/DL (8.3-10.6); CREATININE FOR GFR 1.09 MG/DL (0.55-1.30); GLOMERULAR FILTRATION RATE 50.7 (>32); POTASSIUM SERUM 3.6 MMOL/L (3.5-5.1)
[2024-05-31 08:38] VITALS: BP 143/62
[2024-05-31 12:00] VITALS: BP 152/86; TEMP 97.7; O2SAT 89
[2024-05-31] MEDS ORDERED: PRED10TA2 PO (12:16)
== END 2024-05-31 14:25 | disposition hospice, home (50) | DRG 189 ==
LOC: M ED 12:44 → EDBD 12:44 → M ED INP 18:39 → M MS5PR 05-25 00:50
PROVIDERS: ADMIT Family Medicine; ATTEND Student in an Organized Health Care Education/Training Program
DX: J81.1 Chronic pulmonary edema (principal); N17.9 Acute kidney failure, unspecified; J44.1 Chronic obstructive pulmonary disease with (acute) exacerbation; I27.81 Cor pulmonale (chronic); Z66 Do not resuscitate; I27.20 Pulmonary hypertension, unspecified; N18.32 Chronic kidney disease, stage 3b; I25.2 Old myocardial infarction; I25.10 Atherosclerotic heart disease of native coronary artery without angina pectoris; I48.91 Unspecified atrial fibrillation; E11.22 Type 2 diabetes mellitus with diabetic chronic kidney disease; M06.9 Rheumatoid arthritis, unspecified; E03.9 Hypothyroidism, unspecified; Z90.49 Acquired absence of other specified parts of digestive tract; Z98.41 Cataract extraction status, right eye; Z98.42 Cataract extraction status, left eye; Z87.891 Personal history of nicotine dependence; Z86.711 Personal history of pulmonary embolism; Z11.52 Encounter for screening for COVID-19; Z99.81 Dependence on supplemental oxygen; Z95.5 Presence of coronary angioplasty implant and graft; Z79.01 Long term (current) use of anticoagulants; Z79.890 Hormone replacement therapy; Z79.52 Long term (current) use of systemic steroids; Z79.899 Other long term (current) drug therapy; R29.6 Repeated falls; E87.6 Hypokalemia